=== PATIENT | male | born 1955 | race Caucasian/White ===

== ENCOUNTER 2021-12-28 21:53 | Emergency (ER) | payer MEDICARE, OTHER, SELFPAY ==
[2021-12-28 21:54] VITALS: BP 167/90; PULSE 87; RESP 18; TEMP 36.7; O2SAT 97; BMI 25.8
[2021-12-29] MEDS: Tetracaine 0.5% Ophthalmic Bottle 1 DRP LEFT EYE (00:01)
[2021-12-29] MEDS: Fluorescein 1 MG STRIP 1 STRIP LEFT EYE (00:02)
--- NOTE | 2021-12-29 00:38 | EX.ED.VIS.EY ---
HPI History of Present Illness Chief Complaint: Eye Problem Narrative Narrative: Patient is a 66-year-old male who states that he was holding a piece of wood while his friend was cutting it and he got sawdust in his left eye around 4:30 PM today. He denies any need for contact lens use. He states that he flushed his eye multiple times but he still feels like there is a foreign object in there. He denies any change in vision headache fevers or chills but secondary to the persistent left eye pain presents for evaluation [facility] Home Medications hydrocodone-acetaminophen 5-325mg 5mg-325mg 1 - 2 tab PO Q4H PRN PRN Pain ##20 01/01/14 [Rx Last Taken 01/07/14 06:00] ondansetron 4 mg disintegrating tablet 4 mg PO Q8H PRN PRN Nausea #10 tabs 01/01/14 [Rx Last Taken Unknown] tamsulosin 0.4 mg capsule 0.4 mg PO DAILY 14 days 01/01/14 [Rx Last Taken Unknown] hydrocodone-acetaminophen 5-325mg 5mg-325mg 1 - 2 tab PO Q4H PRN PRN Pain ##20 01/07/14 [Rx Last Taken Unknown] sulfamethoxazole 800 mg-trimethoprim 160 mg tablet 1 tab PO BID ##20 01/07/14 [Rx Last Taken Unknown] erythromycin 5 mg/gram (0.5 %) eye ointment 1 applic LEFT EYE 4X/DAY 5 days #3.5 grams 12/29/21 [Rx Last Taken Unknown] Allergy/AdvReac Type Severity Reaction Status Date / Time No Known Allergies Allergy Verified 12/28/21 21:56 Social History Smoking Status: Never smoker [facility] ED Constitutional Constitutional ED: Denies chills or fever(s) Eyes Eyes: Reports other Details: Positive left eye pain ; Denies blurry vision or change in vision ENT ENT ED: Denies sore throat Cardiovascular Cardiovascular: Denies chest pain Respiratory/Chest Respiratory/Chest: Denies cough or dyspnea Gastrointestinal Gastrointestinal: Denies abdominal pain, diarrhea, nausea or vomiting Genitourinary Genitourinary ED: Denies dysuria Musculoskeletal Musculoskeletal: Denies myalgias Integumentary Denies rash Neurologic Neurologic: Denies headache(s) EXAM Physical Exam Const Vital Signs: 12/28/21 21:54 Temperature 98.0 F Temperature Source Temporal Pulse Rate 87 Respiratory Rate 18 Blood Pressure 167/90 H Blood Pressure Mean 115 Pulse Ox 97 Oxygen Delivery Method Room Air Positive well nourished and well developed General Appearance ED: well developed Eyes PERRL and EOMs intact bilaterally Eyes Narrative: There is scleral injection of the left eye with increased tearing. Upper lid was everted there is no foreign body. Patient had complete relief of pain with tetracaine. Zamorano lamp exam shows a small corneal abrasion over top the iris at the 10 to 11 o'clock position. No retained foreign bodies noted. Negative Giovanny sign Neck supple Resp normal respiratory effort and clear to auscultation bilaterally Cardio regular rate and regular rhythm Extremity normal to inspection Neuro oriented x3 and CN's II-XII intact bilaterally Sensorium / Orientation: alert Psych mental status grossly normal Skin no rashes or lesions noted MDM MDM MDM Narrative Medical decision making narrative: Patient presented to the ER with history concerning for corneal abrasion and retained foreign body. Examination confirmed corneal abrasion but there is no foreign body noted. Therefore at this time as patient does not have globe rupture or history of chemical injury there is no need for ophthalmology consult. Patient will be placed on erythromycin as he does not wear contacts and is otherwise safe for discharge. Discharge Plan Triage Chief Complaint: Eye Problem ED Provider: Hi Wang Dx/Rx/DC Orders Clinical Impression: Injury of conjunctiva and corneal abrasion of left eye w/o FB Prescriptions: New erythromycin 5 mg/gram (0.5 %) ointment 1 applic LEFT EYE 4X/DAY 5 Days Qty: 3.5 0RF No Action hydrocodone-acetaminophen 1 TABLET tablet 1 - 2 tab PO Q4H PRN PRN (Reason: Pain) Qty: 20 0RF ondansetron 4 MG tablet 4 mg PO Q8H PRN PRN (Reason: Nausea) Qty: 10 0RF tamsulosin 0.4 MG capsule 0.4 mg PO DAILY 14 Days 0RF sulfamethoxazole-trimethoprim 1 TABLET tablet 1 tab PO BID Qty: 20 0RF hydrocodone-acetaminophen 1 TABLET tablet 1 - 2 tab PO Q4H PRN PRN (Reason: Pain) Qty: 20 0RF Primary Care Provider: Care Physician,No Primary Referrals: Patricia Elizabeth MD [Med Staff - Active Staff] - 3-5 Days if not improving Care Physician,No Primary [Primary Care Provider] - Disposition Disposition: Home, Self Care Discharge Date/Time: 12/29/21 01:00
[2021-12-29] MEDS: Erythromycin Base 1 OPTH.TUBE 1 APPLIC LEFT EYE (00:50)
[2021-12-29 00:59] VITALS: PULSE 83; RESP 18; O2SAT 97
== END 2021-12-29 01:00 | disposition home or self-care (01) ==
PROVIDERS: Emergency Provider Emergency Medicine; Visit Provider Emergency Medicine
DX: S05.02XA Injury of conjunctiva and corneal abrasion without foreign body, left eye, initial encounter (principal); X58.XXXA Exposure to other specified factors, initial encounter
CPT/HCPCS: 99282

== ENCOUNTER 2024-08-16 10:23 | Emergency (ER) | payer MEDICARE, OTHER, SELFPAY ==
[2024-08-16 10:24] VITALS: BP 147/94; PULSE 76; RESP 16; TEMP 37; O2SAT 98; BMI 28.1
--- NOTE | 2024-08-16 10:36 | EDS_ITS ---
<Statement entered by Jesus Ovalle DO - 08/16/24 17:13> Patient was seen and examined with nurse practitioner Wade All components of the history and physical confirmed and agreed. History of present illness and physical exam: Patient is a 69-year-old male with a past medical history of hypertension, kidney stones, drinks 1-2 beers daily who presented to the emergency department with the concern that he may be turning yellow. Patient states that he is currently getting worked up for some cyst on his liver and potentially had some blood in his urine. Patient is poor historian cannot exactly describe the details overall. Patient states that his son noticed that he may have a yellow tint to his eyes and he talk to his doctor advised he come here for further evaluation management. Patient denies abdominal pain. Review of systems: Agree above Physical exam: Agree with above MDM Patient is a 69-year-old male who presents to the emergency department with a c hief complaint of concern of jaundice. On the differential diagnose includes but limited to jaundice, cholecystitis, choledocholithiasis, pancreatitis. Once workup is obtained reviewed he will be reevaluated. Patient CBC was reviewed and showed no evidence of leukocytosis white blood cell normal 7.8, hemoglobin 15.3, platelet count was noted be 271. Patient sodium normal 139, potassium normal at 4, creatinine was 1.06. Patient's total bilirubin elevated 3.23, direct bilirubin elevated 2. To 8, AST and ALT were 303 and 896 respectively, lipase was normal at 37. Patient's urinalysis showed no evidence of infection. Patient's ultrasound of his right upper quadrant showed moderate right hydronephrosis no evidence of acute cholecystitis. Wade reached out to the on-call general surgeon who was attempting to obtain a CT scan that he obtained per the patient at [facility] yesterday however according to them ultimately there was no CT scan obtained. Dr. Moyer stated that the patient can follow-up closely with the primary care physician as well as gastroenterology. Patient was given referrals. He is encouraged return with worsening symptoms or any concerns. He is advised to have repeat blood work obtained at the beginning of next week as well. He is agreeable this plan all question concerns answered he is discharged home in stable condition. Final impression: Transaminitis Hyperbilirubinemia Disposition: Patient will be discharged home in stable condition Supervising attending attestation: Jesus Ovalle D.O. HPI History of Present Illness Chief Complaint: Other, Pain/Inj Narrative Narrative: Patient is a 69-year-old male who drinks 1-2 beers daily. Presenting to the emergency department for concern he may be turning yellow. Patient states that he is currently getting worked up for some cyst on his liver, he had some blood in his urine possibly a blockage in his gallbladder. When speaking to his PCP, they said if he turns yellow in any way to come to the ER. Today he was having breakfast with his son when his son noticed that his eyes might have been yellow-tinged. He is here for evaluation. Denies any abdominal pain, denies any fever or chills. [facility] Medical History (Updated 08/16/24 @ 16:23 by SHANNAN Lizama) Kidney stones HTN (hypertension) Home Medications ?Medication ?Instructions ?Recorded ?Last Taken ?Type hydrocodone-acetaminophen 5-325mg 1 - 2 tab PO Q4H PRN PRN Pain ##20 01/01/14 01/07/14 06:00 Rx 5mg-325mg ondansetron 4 mg disintegrating 4 mg PO Q8H PRN PRN Na usea #10 tabs 01/01/14 Unknown Rx tablet tamsulosin 0.4 mg capsule 0.4 mg PO DAILY 14 days 12/22 05/06 Unknown Rx hydrocodone-acetaminophen 5-325mg 1 - 2 tab PO Q4H PRN PRN Pain ##20 01/07/14 Unknown Rx 5mg-325mg sulfamethoxazole 800 1 tab PO BID ##20 01/07/14 U nknown Rx mg-trimethoprim 160 mg tablet erythromycin 5 mg/gram (0.5 %) eye 1 applic LEFT EYE 4 X/DAY 5 days 12/29/21 Unknown Rx ointment #3.5 grams Allergy/AdvReac Type Severity Reaction Status Date / Time No Known Allergies Allergy Verified 08/16/24 10:24 Surgical History (Updated 08/16/24 @ 10:47 by Beatriz Redman) H/O hernia repair Social History Smoking Status: Never smoker ROS ROS ED ROS Narrative Constitutional: Negative for fever, chills, weight loss, weakness Eyes: Negative for vision loss, vision change, double vision. Concern for yellowness of his eyes ENT: Negative for any sore throat, ear pain, congestion Cardiovascular: Negative for any chest pain, tightness, palpitations Respiratory: Negative for any cough, sputum production, hemoptysis, dyspnea, dyspnea on exertion, orthopnea Gastrointestinal: Negative for any abdominal pain, nausea, vomiting, diarrhea, constipation, blood in stool, blood in vomit : Negative for any urinary frequency, dysuria, retention, blood in urine Muscle skeletal: Negative for any neck pain, back pain Neurological: Negative for any headache, syncope, dizziness Skin: Negative for any rashes, itching, abrasions, lacerations Psychiatric: Negative for any depression, anxiety, stress, suicidal ideation, homicidal ideation Hematologic: Negative for any excessive bruising, easy bleeding EXAM Physical Exam Narrative Exam Narrative: Vital signs reviewed. HEET: Head normocephalic atraumatic, TMs clear bilaterally. Posterior pharynx is clear, moist mucous membranes. Nares clear bilaterally. On my physical examination, I do not see gross scleral icterus. They might be a slight yellow tinge however this could be a normal variation. Patient's skin color is within normal limits. Neck: Supple with no lymphadenopathy or tenderness. No signs of meningismus. Cardiac: Regular rate and rhythm no murmurs gallops or rubs, equal peripheral pulses bilaterally. Respiratory: Lungs clear to auscultation bilaterally. No chest tenderness. Abdomen: Soft, nontender, nondistended. No abdominal bruit or pulsatile masses. No hepatosplenomegaly Extremities: No peripheral edema, no signs of gross trauma or deformity. Active full range of motion of all extremities. Neuro: Cranial nerves II through XII intact, no focal neurological deficits. Skin: Clean dry and intact with no rash, purpura, petechiae, vesicles or pustules. Backs/flank: No CVA tenderness, no midline spinal tenderness, no deformity. Psych: Normal mood and affect. No SI, HI or acute psychosis. Const Vital Signs: 08/16/24 10:24 08/16/24 10:46 08/16/24 12:45 Temperature 98.6 F Temperature Source Temporal Pulse Rate 76 85 Respiratory Rate 16 16 Respiratory Effort Normal Respiratory Pattern Normal Blood Pressure 147/94 H 132/91 H Blood Pressure Mean 111 104 Pulse Ox 98 97 Oxygen Delivery Method Room Air Room Air 08/16/24 14:10 08/16/24 16:00 Temperature Temperature Source Pulse Rate 82 69 Respiratory Rate 16 16 Respiratory Effort Respiratory Pattern Blood Pressure 135/79 H 149/88 H Blood Pressure Mean 97 108 Pulse Ox 98 96 Oxygen Delivery Method Room Air Room Air Positive well nourished and well developed General Appearance ED: well developed MDM MDM Lab Data Labs: Laboratory Results - last 24 hr 08/16/24 08/16/24 10:41 11:29 WBC 7.8 RBC 4.68 Hgb 15.3 Hct 45.2 MCV 96.6 H MCH 32.7 H MCHC 33.8 RDW Std Deviation 47.5 H RDW Coeff of Michelle 13.3 Plt Count 271 MPV 9.7 Immature Gran % (Auto) 0.600 Neut % (Auto) 72.8 H Lymph % (Auto) 12.1 L Iron % (Auto) 10.4 H Eos % (Auto) 3.6 Baso % (Auto) 0.5 Absolute Neuts (auto) 5.7 Absolute Lymphs (auto) 0.94 Nucleated RBC % 0 PT 12.5 INR 0.9 Sodium 139 Potassium 4.0 Chloride 104 Carbon Dioxide 23.6 Anion Gap 12 BUN 20 H Creatinine 1.06 Estim Creat Clear Calc 57.79 Est GFR (MDRD) Non-Af 75 BUN/Creatinine Ratio 19.0 Glucose 101 H Calcium 9.6 Total Bilirubin 3.23 H Direct Bilirubin 2.28 H AST 303 H ALT 896 H Alkaline Phosphatase 347 H Total Protein 6.9 Albumin 4.0 Globulin 2.9 Lipase 37 Urine Color [place] Urine Clarity Clear Urine pH 5.0 Ur Specific [place] 1.020 Urine Protein 30 H Urine Glucose (UA) Normal Urine Ketones 5 H Urine Occult Blood 10 H Urine Nitrite Negative Urine Bilirubin 1 H Urine Urobilinogen 8 H Ur Leukocyte Esterase 25 H Urine RBC 0 SEEN Urine WBC 0-5 SEEN Ur Squamous Epith Cells 0 SEEN Urine Bacteria 0 SEEN Urine Mucus 1+ Radiography Diagnostic Testing: Clinical Impression(s) from Imaging Studies Abdomen Ultrasound 08/16/24 11:41 IMPRESSION: Moderate right hydronephrosis. No evidence of acute cholecystitis. Reading Location: [id number] Treatment and Re-Evaluation :: Differential diagnosis includes however is not limited to: Anxiety, alcoholic cirrhosis, scleral icterus, elevated liver enzymes, normal variation of his eyes and skin color Patient appears generally well, vital signs are stable, patient is nontoxic- appearing. Presenting to the [facility] for concern of yellowness in his eyes. Patient did have a CAT scan that was outside his network that did show some cyst on his liver, hepatomegaly possibly some sludge in his gallbladder. Patient is here to ensure that his enzymes are within normal limits, he states that he is not sure and is just slightly anxious. Patient will receive CBC BMP liver panel lipase as well as a PT/INR. Urinalysis will also be obtained. Patient will be reevaluated Patient CBC was unremarkable, PT/INR within normal limits. Patient's BUN is 20, creatinine is 1.06. Patient's total bilirubin was slightly elevated at 3.23, direct bilirubin 2.28, AST of 303, ALT of 896 with an alkaline phosphatase of 347. Lipase was negative. Secondary to this finding, patient will receive a right upper quadrant ultrasound. All radiologic examinations were read, reviewed by the emergency department attending. From these reads, a plan of care will be put in place. Patient's abdominal ultrasound shows moderate right hydronephrosis however there is no stones, the right kidney measures 10.6 x 5.3 x 5.5 cm. Patient has no evidence of any acute cholecystitis. Will reach out to surgery to ensure there is no other testing at this time. Patient remains asymptomatic at this time. I spoke with the surgeon again, at this time, do not feel any surgical emergency. The surgery myself to try to get the CT scan completed, There was some difficulty with the technology. Patient did receive a right upper quadrant ultrasound of the surgeon to look at Dr. Moyer talk with me on the phone. Patient be discharged home, will follow-up closely with her PCP as well as a GI specialist. Given strict return precaution. The patient is no longer drinking alcohol. All questions answered, stable for discharge Discharge Plan Triage Chief Complaint: Other, Pain/Inj ED Midlevel Provider: Wade Murphy ED Provider: Jesus Ovalle Dx/Rx/DC Orders Clinical Impression: Transaminitis, Hyperbilirubinemia Instructions: ALT Prescriptions: No Action hydrocodone-acetaminophen 1 TABLET tablet 1 - 2 tab PO Q4H PRN PRN (Reason: Pain) Qty: 20 0RF ondansetron 4 MG tablet 4 mg PO Q8H PRN PRN (Reason: Nausea) Qty: 10 0RF tamsulosin 0.4 MG capsule 0.4 mg PO DAILY 14 Days 0RF sulfamethoxazole-trimethoprim 1 TABLET tablet 1 tab PO BID Qty: 20 0RF hydrocodone-acetaminophen 1 TABLET tablet 1 - 2 tab PO Q4H PRN PRN (Reason: Pain) Qty: 20 0RF erythromycin 5 mg/gram (0.5 %) ointment 1 applic LEFT EYE 4X/DAY 5 Days Qty: 3.5 0RF Primary Care Provider: Vannessa Mattson NP Referrals: FriendDavid DO [Med Staff - Active Staff] - Vannessa Mattson NP, [employer]OPER-[employer] [Primary Care Provider] - Print Language: [place] Disposition Disposition: Home, Self Care
[2024-08-16 11:02] LABS: International Normalized Ratio 0.9; Prothrombin Time (Protime)PT. 12.5 SECONDS (11.7-14.9)
[2024-08-16 11:05] LABS: Absolute Lymphocyte Count 0.94 X10^3/uL (0.83-4.51); Absolute Neutrophil Count 5.7 X10^3/uL (2.0-7.7); Basophil# 0.04 X10^3/uL; Basophil% 0.5 % (0-1); Eosinophil# 0.28 X10^3/uL; Eosinophils% 3.6 % (0-5); Hematocrit 45.2 % (40-54); Hemoglobin 15.3 g/dL (13.0-16.5); Lymphocyte # 0.94 X10^3/ul (0.83-4.51); Lymphocyte % 12.1 % (19-41); Mean Corp Hgb Conc 33.8 g/dL (32-36); Mean Corpuscular Hgb 32.7 pg (27.0-32.0); Mean Corpuscular Volume 96.6 fL (80-94); Mean Platelet Vol. 9.7 fl (6.2-12.0); Monocyte# 0.81 X10^3/uL; Monocyte% 10.4 % (0-10); NRBC Flagged by Analyzer 0 % (0-5); Neutrophil # 5.65 X10^3/uL (2.7-7.7); Neutrophil % 72.8 % (47-70); Platelet Count 271 K/mm3 (150-450); RBC Distribution Width CV 13.3 % (11.6-14.6); RBC Distribution Width SD 47.5 fl (35.1-43.9); Red Blood Count 4.68 M/mm3 (4.6-6.2); White Blood Count 7.8 K/mm3 (4.4-11.0)
[2024-08-16 11:16] LABS: Lipase 37 U/L (13-75)
[2024-08-16 11:32] LABS: AST(SGOT) 303 U/L (<=37); Alanine Aminotransfer ALT/SGPT 896 U/L (<=46); Alkaline Phosphatase 347 U/L (40-129); Anion Gap 12 (5-15); BUN 20 mg/dL (4-19); Bilirubin, Direct 2.28 mg/dL (0.00-0.30); Calcium,Total 9.6 mg/dL (7.6-11.0); Carbon Dioxide 23.6 mmol/L (21.0-32.0); Chloride 104 mmol/L (98-108); Creatinine, Serum 1.06 mg/dL (0.70-1.20); EST Glomerular Filtration Rate 75 (>60); Estimated Creatinine Clearance 57.79 ml/min (50-250); Globulin 2.9 g/dL (2.2-4.2); Glucose 101 mg/dL (70-99); Protein, Total 6.9 g/dL (5.9-8.4); Sodium Level 139 mmol/L (133-145); Total Bilirubin 3.23 mg/dL (0.00-1.30)
[2024-08-16 11:33] LABS: Bacteria 0 SEEN /hpf (None Seen); Red Blood Cells-Urine 0 SEEN /hpf (0-5); Squamous Epithelial Cells - UA 0 SEEN /hpf (0-5)
[2024-08-16 11:36] LABS: Color, Urine Amber (Yellow); Glucose, Dipstick Normal (Normal); Ketone-Dipstick 5 mg/dl (Negative); Leukocyte Esterase-Dipstick 25 /ul (Negative); Nitrite-Dipstick Negative (Negative); Occult Blood-Urine 10 /ul (Negative); Protein-Dipstick 30 mg/dl (Negative); Urine Bilirubin Dipstick 1 mg/dL (Negative); Urine Clarity Clear (Clear); Urine Urobilinogen 8 mg/dl (Normal)
--- NOTE | 2024-08-16 11:41 | US_ITS ---
EXAM: US Abdomen Limited, Right Upper Quadrant CLINICAL INDICATION: TRANSAMINITIS, ELEVATED BILIRUBIN TECHNIQUE: Real-time ultrasound of the right upper quadrant with image documentation. COMPARISON: No relevant prior studies available. FINDINGS: LIVER: Liver measures up to 15.5 cm. No intrahepatic bile duct dilation. GALLBLADDER: Negative Reeder's sign was reported by the steno typist. No gallstones. COMMON BILE DUCT: Unremarkable as visualized. No stones. No dilation. Common bile duct measures 0.4 cm in diameter. PANCREAS: Pancreas not clearly visualized. RIGHT KIDNEY: Moderate right hydronephrosis. No stones. The right kidney measures 10.6 x 5.3 x 5.5 cm. US/Abdomen Limited IMPRESSION: Moderate right hydronephrosis. No evidence of acute cholecystitis. Reading Location: [id number]
[2024-08-16 11:44] LABS: White Blood Cells 0-5 SEEN /hpf (0-5)
[2024-08-16 11:45] LABS: Mucous, Urine 1+ /hpf (<or=2+)
[2024-08-16 12:45] VITALS: BP 132/91; PULSE 85; RESP 16; O2SAT 97
[2024-08-16 14:10] VITALS: BP 135/79; PULSE 82; RESP 16; O2SAT 98
[2024-08-16 16:00] VITALS: BP 149/88; PULSE 69; RESP 16; O2SAT 96
[2024-08-16 16:26] VITALS: BP 144/79; PULSE 72; RESP 16; TEMP 36.8; O2SAT 96
== END 2024-08-16 16:27 | disposition home or self-care (01) ==
PROVIDERS: Nurse Practitioner; Emergency Provider Emergency Medicine; PCP Clinical Nurse Specialist; Visit Provider Emergency Medicine
DX: E80.7 Disorder of bilirubin metabolism, unspecified (principal); I10 Essential (primary) hypertension; R74.01 Elevation of levels of liver transaminase levels
CPT/HCPCS: 76705; 80048; 80076; 81001; 83690; 85025; 85610; 99283; A4216

== ENCOUNTER → 2024-08-21 | Outpatient (CLI) | payer MEDICARE, OTHER, SELFPAY ==
[2024-08-21 16:50] LABS: Absolute Lymphocyte Count 0.78 X10^3/uL (0.83-4.51); Absolute Neutrophil Count 5.5 X10^3/uL (2.0-7.7); Basophil# 0.04 X10^3/uL; Basophil% 0.5 % (0-1); Eosinophil# 0.31 X10^3/uL; Eosinophils% 4.2 % (0-5); Hematocrit 45.1 % (40-54); Hemoglobin 14.9 g/dL (13.0-16.5); Lymphocyte # 0.78 X10^3/ul (0.83-4.51); Lymphocyte % 10.6 % (19-41); Mean Corpuscular Hgb 32.3 pg (27.0-32.0); Mean Corpuscular Volume 97.6 fL (80-94); Mean Platelet Vol. 10.3 fl (6.2-12.0); Monocyte# 0.67 X10^3/uL; Monocyte% 9.1 % (0-10); NRBC Flagged by Analyzer 0 % (0-5); Neutrophil # 5.46 X10^3/uL (2.7-7.7); Neutrophil % 74.6 % (47-70); Platelet Count 392 K/mm3 (150-450); RBC Distribution Width CV 13.4 % (11.6-14.6); RBC Distribution Width SD 48.6 fl (35.1-43.9); Red Blood Count 4.62 M/mm3 (4.6-6.2); White Blood Count 7.3 K/mm3 (4.4-11.0)
[2024-08-21 16:58] LABS: International Normalized Ratio 0.9; Prothrombin Time (Protime)PT. 12.8 SECONDS (11.7-14.9)
[2024-08-21 17:42] LABS: Erythrocyte Sedimentation Rate 16 mm/hr (0-20)
[2024-08-21 17:47] LABS: ALB/GLOB Ratio 1.4 RATIO (0.9-2.4); AST(SGOT) 131 U/L (<=37); Alanine Aminotransfer ALT/SGPT 498 U/L (<=46); Alkaline Phosphatase 440 U/L (40-129); Anion Gap 12 (5-15); BUN 14 mg/dL (4-19); BUN/Creat Ratio 14.6 RATIO (10-20); Calcium,Total 9.3 mg/dL (7.6-11.0); Carbon Dioxide 21.5 mmol/L (21.0-32.0); Chloride 104 mmol/L (98-108); Creatinine, Serum 0.99 mg/dL (0.70-1.20); EST Glomerular Filtration Rate 82 (>60); Globulin 2.9 g/dL (2.2-4.2); Glucose 96 mg/dL (70-99); Potassium 4.3 mmol/L (3.3-5.1); Protein, Total 6.9 g/dL (5.9-8.4); Sodium Level 137 mmol/L (133-145); Total Bilirubin 1.33 mg/dL (0.00-1.30)
[2024-08-21 19:47] LABS: CRP < 3.00 mg/L (0.0-3.0); LDH 166 U/L (87-241)
[2024-08-25 12:08] LABS: Anti-Centromere B Ab <0.2 AI (0.0-0.9); Anti-Chromatin <0.2 AI (0.0-0.9); Anti-Jo <0.2 AI (0.0-0.9); Anti-Mitochondrial AB <20.0 Units (0.0-20.0); Anti-Scleroderma-70 AB <0.2 AI (0.0-0.9); Anti-dsDNA Ab <1 IU/mL (0-9); RNP Ab 0.2 AI (0.0-0.9); SJOGREN'S Anti-SS-A test < 0.2 AI (0.0-0.9); SJOGREN'S Anti-SS-B test < 0.2 AI (0.0-0.9); Smith Ab <0.2 AI (0.0-0.9)
[2024-08-26 16:09] LABS: Albumin 3.4 g/dL (2.9-4.4); Alpha-1-Globulins 0.4 g/dL (0.0-0.4); Alpha-2-Globulins 0.8 g/dL (0.4-1.0); Anti-Smooth Muscle ABS 3 Units (0-19); CMV Acute Antibody IgM < 30.0 AU/mL (0.0-29.9); Cytoplasmic Ab (C-ANCA) <1:20 titer (Neg:<1:20); EBV Acute VCA IgM < 36.0 U/mL (0.0-35.9); EBV Nuclear Antigen IgG < 18.0 U/mL (0.0-17.9); EBV-VCA IgG < 18.0 U/mL (0.0-17.9); Endomysial Antibody IgA Negative (Negative); HEPATITIS B SURFACE AG Negative (Negative); Hep C Antibodies Non Reactive (Non Reactive); Hepatitis A IgM Antibody Negative (Negative); Hepatitis B Core AB IgM Negative (Negative); Immunoglobulin A 142 mg/dL (61-437); Immunoglobulin G 1042 mg/dL (603-1613); Immunoglobulin M 35 mg/dL (20-172); PROEL- TOTAL PROTEIN 6.7 g/dL (6.0-8.5); Perinuclear Ab (P-ANCA) <1:20 titer (Neg:<1:20); t-Transglutaminase IgA <2 U/mL (0-3)
== END | disposition home or self-care (01) ==
LOC: LAB 15:13
PROVIDERS: PCP Clinical Nurse Specialist; Referring Provider Internal Medicine Gastroenterology; Visit Provider Internal Medicine Gastroenterology
DX: E80.6 Other disorders of bilirubin metabolism (principal); R74.01 Elevation of levels of liver transaminase levels; K75.9 Inflammatory liver disease, unspecified; D64.9 Anemia, unspecified; D68.59 Other primary thrombophilia
CPT/HCPCS: 36415; 80053; 80074; 82784; 83516; 83615; 84165; 85025; 85610; 85652; 86037; 86140; 86225; 86235; 86255; 86334; 86645; 86664; 86665

== ENCOUNTER → 2024-09-23 | Outpatient (CLI) | payer MEDICARE, OTHER, SELFPAY ==
[2024-09-23] VITALS (14 sets, daily range): BP systolic 88–162; BP diastolic 60–94; PULSE 50–61; RESP 12–16; TEMP 36.4; O2SAT 94–100; BMI 26.9
--- NOTE | 2024-09-23 09:02 | CT_ITS ---
PROCEDURE: PERCUTANEOUS LIVER BIOPSY UNDER CT GUIDANCE 09/23/2024 REASON FOR EXAM: HYPERBILIRUBINEMIA TECHNIQUE: CONTIGUOUS AXIAL SCANS OF 2.5 MM SLICE THICKNESSES OBTAINED THROUGH THE UPPER ABDOMEN, SPECIAL ATTENTION TO THE LIVER. One or more dose reduction techniques were used (e.g., Automated exposure control, adjustment of the mA and/or kV according to patient size, use of iterative reconstruction technique). RADIATION DOSE SUMMARY: DLP: 1161.46 mGycm COMPARISON: ULTRASOUND DATED 08/16/2024. FINDINGS: INFORMED CONSENT WAS OBTAINED PRIOR TO THE PROCEDURE. THE PATIENT WAS GIVEN THE OPPORTUNITY TO ASK QUESTIONS. Following localization of the site of biopsy, sterile preparation of the skin was performed in the usual fashion. Lidocaine 2% was utilized to anesthetize the site of biopsy needle insertion. A YES.TAP coaxial biopsy device was utilized to perform the biopsy. Guiding needle: 17 gauge x 4.5 cm. Biopsy needle: 18 gauge x 10.0 cm. Number of specimens: Three(3). Following the procedure, axial scans were obtained through the area of biopsy. No signs of hemorrhage or other abnormalities. CT/Biopsy/Inj or Needle Placement IMPRESSION: 1. Successful random core biopsy of the liver under CT guidance. 2. Patient tolerated the procedure well. Final pathologic results are pending . Thank you for this referral. Reading Location: [place] [id number]
[2024-09-23 09:17] LABS: Absolute Lymphocyte Count 1.19 X10^3/uL (0.83-4.51); Absolute Neutrophil Count 3.9 X10^3/uL (2.0-7.7); Basophil# 0.04 X10^3/uL; Basophil% 0.7 % (0-1); Eosinophil# 0.23 X10^3/uL; Eosinophils% 3.9 % (0-5); Hematocrit 46.5 % (40-54); Hemoglobin 15.6 g/dL (13.0-16.5); Lymphocyte # 1.19 X10^3/ul (0.83-4.51); Lymphocyte % 20.3 % (19-41); Mean Corp Hgb Conc 33.5 g/dL (32-36); Mean Corpuscular Hgb 32.1 pg (27.0-32.0); Mean Corpuscular Volume 95.7 fL (80-94); Mean Platelet Vol. 9.2 fl (6.2-12.0); Monocyte# 0.51 X10^3/uL; Monocyte% 8.7 % (0-10); NRBC Flagged by Analyzer 0 % (0-5); Neutrophil # 3.88 X10^3/uL (2.7-7.7); Neutrophil % 66.1 % (47-70); Platelet Count 293 K/mm3 (150-450); RBC Distribution Width CV 12.4 % (11.6-14.6); RBC Distribution Width SD 43.6 fl (35.1-43.9); Red Blood Count 4.86 M/mm3 (4.6-6.2); White Blood Count 5.9 K/mm3 (4.4-11.0)
[2024-09-23 09:38] LABS: International Normalized Ratio 1.1; Prothrombin Time (Protime)PT. 13.9 SECONDS (11.7-14.9)
[2024-09-23 09:39] LABS: Partial Thromboplast Time 26.5 Seconds (24.1-36.2)
--- OUTSIDE RECORDS SUMMARY | 2024-09-23 09:41 | XMS RPT_ITS | CCD ---
Author Organization [facility] Care Team Providers Care Field Cane Scaler Helper Name Role Phone Mateo Ayala MD Primary Care Provider aMteo Ayala MD Primary Care Provider Srinivasan RADIATOR FITTER.TEAMSITE DEVELOPER, Awilda Unavailable Fred RADIATOR FITTER.HYDROGEN PLANT OPERATOR, Casandra Unavailable Mateo Ayala MD Primary Care Provider Srinivasan RADIATOR FITTER.TEAMSITE DEVELOPER, Awilda Primary Care Provider LONG NAVARRO Attending Unavailable LONG NAVARRO Admitting Unavailable TALAMPAS, MATEO D Primary Care Unavailable Mattson GENERAL ADJUSTER-C, Awilda Primary Care Provider Dr. Jesus Ovalle DO Emergency Provider Mateo Ayala MD Primary Care Provider Holly Jorge MD Unavailable MATTSON, AWILDA Referring Unavailable TALAMPAS, MATEO D Primary Care Unavailable MATTSON, AWILDA Referring Unavailable TALAMPAS, MATEO D Primary Care Unavailable HOLLY JORGE Attending Unavailable MATTSON, AWILDA Referring Unavailable TALAMPAS, MATEO D Primary Care Unavailable TALAMPAS, MATEO D Primary Care Unavailable HOLLY JORGE Referring Unavailable MATTSON, AWILDA Referring Unavailable TALAMPAS, MATEO D Primary Care Unavailable TALAMPAS, MATEO D Primary Care Unavailable MATTSON, AWILDA Referring Unavailable MATTSON, AWILDA Referring Unavailable TALAMPAS, MATEO D Primary Care Unavailable TALAMPAS, MATEO D Primary Care Unavailable MATTSON, AWILDA Referring Unavailable TALAMPAS, MATEO D Primary Care Unavailable MATTSON, AWILDA Referring Unavailable TALAMPAS, MATEO D Primary Care Unavailable MATTSON, AWILDA Referring Unavailable MATTSON, AWILDA Attending Unavailable TALAMPAS, MATEO D Primary Care Unavailable MATTSON, AWILDA Referring Unavailable TALAMPAS, MATEO D Primary Care Unavailable ARLYN CRUZ Attending Unavailable TALAMPAS, MATEO D Primary Care Unavailable ARLYN CRUZ Attending Unavailable MATTSON, AWILDA Attending Unavailable MATTSON, AWILDA Referring Unavailable MATTSON, AWILDA Referring Unavailable TALAMPAS, MATEO D Primary Care Unavailable Mattson GENERAL ADJUSTER, Awilda Primary Care Unavailable Friend, David Referring Unavailable Friend, David Attending Unavailable Jesus Ovalle Attending Unavailable Mattson GENERAL ADJUSTER, Awilda Primary Care Unavailable Mattson GENERAL ADJUSTER, Awilda Primary Care Unavailable Friend, David Referring Unavailable Friend, David Attending Unavailable Friend, David Attending Unavailable Mattson GENERAL ADJUSTER, Awilda Referring Unavailable Mattson GENERAL ADJUSTER, Awilda Primary Care Unavailable Allergies Allergy Classification Reported Allergen(s) Allergy Type Date of Onset Reaction(s) Facility (8 sources) Seasonal allergy; Translations: [SEASONAL ALLERGIES] Allergy to substance Other: See Comments [facility] Medications Current Medications Medication Drug Class(es) Dates Sig (Normalized) Sig (Original) acetaminophen 325 mg / HYDROcodone bitartrate 5 mg oral tablet (4 sources) Opioid Agonist Start: 01-01-2014 Hydrocodone-Acetam inophen 1 TABLET tablet Active 1 - 2 {tbl} PO EVERY 4 HOURS NEEDED as needed for Pain January 07, 2014 12:00am Start: 01-01-2014 take 1 tablet by rafael th every four hours as needed Hydrocodone-Acetaminophen Active 1 - 2 TABLET PO EVERY 4 HOURS NEEDED January 07, 2014 12:00am amLODIPine 2.5 mg oral tablet (17 sources) Dihydropyridine Calcium Channel Manohar Start: 08-08-2021 End: 01-10-2024 take 1 tablet by mouth once daily amLODIPine (NORVASC) 2.5 mg tablet Indications: Hypertension, unspecified type Take 1 tablet by mouth once daily. 90 tablet 3 01/10/2024 Active Comment on above: Take 1 tablet by rafael th once daily. erythromycin 0.005 mg/mg ophthalmic ointment (2 sources) Macrolide, Macrolide Antimicrobial Start: 12-29-2021 Erythromycin 5 mg/gram (0.5 %) ointment Active 1 NMA LEFT EYE 4 TIMES DAILY 3.5 5 December 29, 2021 12:00am Start: 12-29-2021 Erythromycin A ctive 1 APPLIC LEFT EYE 4 TIMES DAILY 3.5 5 December 29, 2021 12:00am iv contrast (will be provided with radiology test) (1 source) Start: 08-25-2024 End: 08-26-2024 iv contrast (will be provided with radiology test) Indications: Abnormal results of liver function studies MRI PANC/ALBERT Inject, intravenously, once for 1 dose. No IV access, insert saline lock prior to the beginning of sedation, infusion, injection of imaging exam. Discontinue saline lock post exam. If Pt. has a central line or IVAD, may access for administration according to line specific nursing protocol. Once exam is complete flush line and de-access according to line specific nursing protocol in the MR contrast administration guidelines link. 1 each 08/25/2024 08/26/2024 Active ondansetron 4 mg disintegrating oral tablet (2 sources) Serotonin-3 Receptor Antagonist Start: 01-01-2014 take 1 tablet by mouth every eight hours as needed for nausea Ondansetron 4 MG tablet Active 4 mg PO EVERY 8 HOURS NEEDED as needed for Nausea January 01, 2014 12:00am sulfamethoxazole 800 mg / trimethoprim 160 mg oral tablet (2 sources) Dihydrofolate Reductase Inhibitor Antibacterial, Sulfonamide Antimicrobial Start: 01-07-2014 Sulfamethoxazole-Tr imethoprim 1 TABLET tablet Active 1 {tbl} PO TWICE A DAY January 07, 2014 12:00am Start: 01-07-2014 take 1 tablet by rafael twice daily Sulfamethoxazole-Trimethoprim Active 1 T ABLET PO TWICE A DAY January 07, 2014 12:00am tamsulosin hydrochloride 0.4 mg oral capsule (2 sources) alpha-Adrenergic Manohar Start: 01-01-2014 take 1 capsule by mouth once daily Tamsulosin 0.4 MG capsule Active 0.4 mg PO DAILY January 01, 2014 12:00am Completed/Discontinued Medications Medication Drug Class(es) Dates Sig (Normalized) Sig (Original) phenylephrine hydrochloride 25 mg/ml ophthalmic solution (1 source) alpha-1 Adrenergic Agonist Start: 08-29-2022 End: 08-30-2022 PHENYLephrine 2.5 % 1 Drop (AK-DILATE, JOSEFA-SYNEPHRINE) proparacaine hydrochloride 5 mg/ml ophthalmic solution (1 source) Local Anesthetic Start: 08-29-2022 End: 08-30-2022 proparacaine 0.5 % 1 Drop (ALCAINE) tropicamide 10 mg/ml ophthalmic solution (1 source) Anticholinergic Start: 08-29-2022 End: 08-30-2022 tropicamide 1 % 1 Drop (MYDRIACYL) Problems Active Problems Problem Classification Problem Date Documented Date Episodic/Chronic Abdominal hernia (2 sources) Left inguinal hernia ; Translations: [Unilateral inguinal hernia, without obstruction or gangrene, not specified as recurrent] Onset: 07-16-2024 06-23-2024 Episodic Blindness and vision defects (3 sources) Bilateral hyperopia of eyes; Translations: [Hypermetropia, bilateral] Episodic Coagulation and hemorrhagic disorders (1 source) Other primary thrombophilia; 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-2024 Chronic Deficiency and other anemia (1 source) Anemia, unspecified; Translations: [Anemia, unspecified] Onset: 08-21-2024 Episodic Disorders of lipid metabolism (17 sources) Hyperlipidemia; Translations: [Hyperlipidemia, unspecified] Onset: 09-02-2007 12-25-2012 Chronic Essential hypertension (16 sources) Hypertensive disorder; Translations: [Essential (primary) hypertension] Onset: 08-30-2007 Chronic Genitourinary symptoms and ill-defined conditions (11 sources) Donald hematuria; Translations: [Gross hematuria] Onset: 08-18-2024 08-18-2024 Episodic Hyperplasia of prostate (9 sources) Nocturia due to benign prostatic hypertrophy; Translations: [Benign prostatic hyperplasia with lower urinary tract symptoms] Onset: 08-18-2024 08-18-2024 Chronic Other diseases of bladder and urethra (7 sources) Hypertrophy of bladder; Translations: [Other specified disorders of bladder] Onset: 08-18-2024 08-18-2024 Chronic Other diseases of bladder and urethra (1 source) Other specified disorders of bladder; Translations: [Bladder wall thickening] Onset: 08-18-2024 Chronic Other diseases of kidney and ureters (7 sources) Acquired renal cystic disease; Translations: [Cyst of kidney, acquired] Onset: 08-18-2024 08-18-2024 Episodic Other diseases of kidney and ureters (1 source) Cyst of kidney, acquired; Translations: [Renal cysts, acquired, bilateral] Onset: 08-18-2024 Episodic Other eye disorders (1 source) Lesion of right eyelid; Translations: [Unspecified disorder of eyelid] Episodic Other liver diseases (1 source) Inflammatory liver disease, unspecified; Translations: [Inflammatory liver disease, unspecified] Onset: 08-21-2024 Chronic Other liver diseases (1 source) Enzyme level - finding; Translations: [Elevated transaminase measurement] 08-16-2024 Episodic Other liver diseases (1 source) Elevated liver enzymes level; Translations: [Abnormal levels of other serum enzymes] 08-18-2024 Episodic Other liver diseases (2 sources) Abnormal levels of other serum enzymes; Translations: [Elevated liver enzymes] Onset: 08-15-2024 Episodic Other nutritional; endocrine; and metabolic disorders (2 sources) Hyperbilirubinemia; Translations: [Other disorders of bilirubin metabolism] 08-16-2024 Chronic Other nutritional; endocrine; and metabolic disorders (4 sources) Other disorders of bilirubin metabolism; Translations: [Hyperbilirubinemia] Onset: 08-15-2024 Chronic Other nutritional; endocrine; and metabolic disorders (1 source) Disorder of bilirubin metabolism, unspecified; 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, unspecified] Onset: 08-20-2024 Chronic Other screening for suspected conditions (not mental disorders or infectious disease) (15 sources) Patient encounter status; Translations: [Encounter for screening for lipoid disorders] Onset: 08-26-2024 Episodic Residual codes; unclassified (1 source) History of hernia repair; Translations: [Other specified postprocedural states] 07-28-2024 Episodic Residual codes; unclassified (6 sources) Family history of prostate cancer; Translations: [Family history of malignant neoplasm of prostate] Onset: 08-19-2024 08-19-2024 Episodic Residual codes; unclassified (1 source) Family history of malignant neoplasm of kidney; Translations: [Family history of malignant neoplasm of kidney] 08-19-2024 Episodic Residual codes; unclassified (1 source) Family history of malignant neoplasm of prostate; Translations: [Family history of prostate cancer in father] Onset: 08-19-2024 Episodic Residual codes; unclassified (2 sources) Family history of malignant neoplasm of kidney; Translations: [Family history of renal cancer] Onset: 08-14-2024 Episodic Retinal detachments; defects; vascular occlusion; and retinopathy (1 source) Nonexudative age-related macular degeneration; Translations: [Nonexudative age-related macular degeneration, bilateral, early dry stage] Chronic Superficial injury; contusion (2 sources) Injury of globe of eye; Translations: [Injury of conjunctiva and corneal abrasion without foreign body, left eye, initial encounter] 12-29-2021 Episodic Unclassified (2 sources) Elevation of levels of liver transaminase levels; Translations: [Elevation of levels of liver transaminase levels] Onset: 08-21-2024 Past or Other Problems Problem Classification Problem Date Documented Da te Episodic/Chronic Calculus of urinary tract (20 sources) Kidney stone; Translations: [Calculus of kidney] Onset: 10-05-2008 10-28-2008 Episodic Other circulatory disease (4 sources) Elevated blood-pressure reading without diagnosis of hypertension; Translations: [Elevated blood-pressure reading, without diagnosis of hypertension] Onset: 08-30-2007 01-15-2008 Episodic Substance-related disorders (11 sources) Tobacco user; Translations: [Nicotine dependence, unspecified, uncomplicated] Onset: 10-28-2008 Resolved: 12-25-2012 11-01-2023 Chronic Results Test Name Value Interpretation Reference Range Facility Hepatic function 2000 panelo n 09-22-2024 Albumin [Mass/Vol] 4.3 g/dL Normal 3.9-4.9 [facility] Comment on above: Order Comment: Celso loyd Type: BLOOD SPECIMENOrdering Facility: [facility] Address: [address] [place] [address] Performed By: #### 2 4325-3 ####[facility] [id number] [place] [address] [place] ALP [Catalytic activity/Vol] 119 U/L High 38-113 [facility] Comment on above: Order Comment: Celso loyd Type: BLOOD SPECIMENOrdering Facility: [facility] Address: [address] [place] [address] Performed By: #### 2 4325-3 ####[facility] [id number] [place] [address] [place] ALT [Catalytic activity/Vol] 13 U/L Normal 10-54 [facility] Comment on above: Order Comment: Speci men Type: BLOOD SPECIMENOrdering Facility: [facility] Address: [address] [place] [address] Performed By: #### 2 4325-3 ####[facility] MILLWNCLIA [id number] [place] [address] [place] AST [Catalytic activity/Vol] 15 U/L Normal 14-40 [facility] Comment on above: Order Comment: Speci men Type: BLOOD SPECIMENOrdering Facility: [facility] Address: [address] [place] [address] Performed By: #### 2 4325-3 ####[facility] [id number] [place] [address] [place] Bilirubin [Mass/Vol] 0.6 mg/dL Normal 0.2-1.3 [facility] Comment on above: Order Comment: Speci men Type: BLOOD SPECIMENOrdering Facility: [facility] Address: [address] [place] [address] Performed By: #### 2 4325-3 ####[facility] [id number] [place] [address] [place] Bilirubin.conjugated [Mass/Vol] 0.2 mg/dL Normal <0.3 [facility] Comment on above: Order Comment: Speci men Type: BLOOD SPECIMENOrdering Facility: [facility] Address: [address] [place] [address] Performed By: #### 2 4325-3 ####[facility] [id number] [place] [address] [place] Protein [Mass/Vol] 6.9 g/dL Normal 6.3-8.0 [facility] Comment on above: Order Comment: Speci men Type: BLOOD SPECIMENOrdering Facility: [facility] Address: [address] [place] [address] Performed By: #### 2 4325-3 ####[facility] [id number] [place] [address] [place] Hepatic function 2000 panelo n 09-16-2024 Albumin [Mass/Vol] 4.3 g/dL Normal 3.9-4.9 [facility] Comment on above: Order Comment: Speci men Type: BLOOD SPECIMENOrdering Facility: [facility] Address: [address] [place] [address] Performed By: #### 2 4325-3 ####[facility] [id number] [place] [address] [place] ALP [Catalytic activity/Vol] 143 U/L High 38-113 [facility] Comment on above: Order Comment: Speci men Type: BLOOD SPECIMENOrdering Facility: [facility] Address: [address] [place] [address] Performed By: #### 2 4325-3 ####[facility]ERNCLI [id number] [place] [address] [place] ALT [Catalytic activity/Vol] 18 U/L Normal 10-54 [facility] Comment on above: Order Comment: Speci men Type: BLOOD SPECIMENOrdering Facility: [facility] Address: [address] [place] [address] Performed By: #### 2 4325-3 ####[facility] [id number] [place] [address] [place] AST [Catalytic activity/Vol] 15 U/L Normal 14-40 [facility] Comment on above: Order Comment: Speci men Type: BLOOD SPECIMENOrdering Facility: [facility] Address: [address] [place] [address] [place] [address] Performed By: #### 2 4325-3 ####[facility] MILLTOWNCLIA [id number] [place] [address] [place] Bilirubin [Mass/Vol] 0.6 mg/dL Normal 0.2-1.3 [facility] Comment on above: Order Comment: Speci men Type: BLOOD SPECIMENOrdering Facility: [facility] Address: [address] [place] [address] Performed By: #### 2 4325-3 ####[facility] MILLTOWNCLIA [id number] [place] [address] [place] Bilirubin.conjugated [Mass/Vol] 0.3 mg/dL High <0.3 [facility] Comment on above: Order Comment: Speci men Type: BLOOD SPECIMENOrdering Facility: [facility] Address: [address] [place] [address] Performed By: #### 2 4325-3 ####[facility]ITALWNCLIA [id number] [place] [address] [place] Protein [Mass/Vol] 6.8 g/dL Normal 6.3-8.0 [facility] Comment on above: Order Comment: Speci men Type: BLOOD SPECIMENOrdering Facility: [facility] Address: [address] [place] [address] Performed By: #### 2 4325-3 ####[facility] MILLWNCLIA [id number] [place] [address] [place] Hepatic function 2000 panelo n 09-01-2024 Albumin [Mass/Vol] 4.0 g/dL Normal 3.9-4.9 [facility] Comment on above: Order Comment: Speci men Type: BLOOD SPECIMENOrdering Facility: [facility] Address: [address] [place] [address] Performed By: #### 2 4325-3 ####[facility] LABCLIA [id number] [address] [place] [address] [place] ALP [Catalytic activity/Vol] 284 U/L High 38-113 [facility] Comment on above: Order Comment: Speci men Type: BLOOD SPECIMENOrdering Facility: [facility] Address: [address] [place] [address] Performed By: #### 2 4325-3 ####[facility] LABCLIA [id number] [address], [facility] [place] ALT [Catalytic activity/Vol] 87 U/L High 10-54 [facility] Comment on above: Order Comment: Speci men Type: BLOOD SPECIMENOrdering Facility: [facility] Address: [address] [place] [address] Performed By: #### 2 4325-3 ####[facility] LABCLIA [id number] [address], [place] [address] [place] AST [Catalytic activity/Vol] 33 U/L Normal 14-40 [facility] Comment on above: Order Comment: Speci men Type: BLOOD SPECIMENOrdering Facility: [facility] Address: [address] [place] [address] Performed By: #### 2 4325-3 ####[facility] LABCLIA [id number] [place] [id number] [place] Bilirubin [Mass/Vol] 0.7 mg/dL Normal 0.2-1.3 [facility] Comment on above: Order Comment: Speci men Type: BLOOD SPECIMENOrdering Facility: [facility] Address: [address] [place], [place] [id number] Performed By: #### 2 4325-3 ####[facility] LABCLIA [id number] [place] [id number] [place] Bilirubin.conjugated [Mass/Vol] 0.4 mg/dL High <0.3 [facility] Comment on above: Order Comment: Speci men Type: BLOOD SPECIMENOrdering Facility: [facility] Address: [address] [place] [address] Performed By: #### 2 4325-3 ####[facility] [id number] [place] [id number] [place] Protein [Mass/Vol] 6.6 g/dL Normal 6.3-8.0 [facility] Comment on above: Order Comment: Speci men Type: BLOOD SPECIMENOrdering Facility: [facility] Address: [address] [place] [id number] Performed By: #### 2 4325-3 ####[facility] LABIA [id number] [place] [id number] [place] MR Biliary ducts and Pancrea tic duct WO and W contrast [place] 08-27-2024 * * *Final Report* * * DATE OF EXAM: Aug 27 2024 10:35AM [facility] 0730 - MRI PANC/ALBERT WO/W IVCON / PROCEDURE REASON: Abnormal results of liver function studies * * * * Physician Interpretation * * * * MRI OF THE ABDOMEN (PANCREAS-BILIARY) WITHOUT AND WITH IV CONTRAST, 3D REFORMATTED IMAGES HISTORY: Unexplained persistent elevated alkaline phosphatase and mild transaminitis. Negative autoimmune serology. MR for biliary tree evaluation. TECHNIQUE: Magnet: 1.5T scanner. Multiplanar MRI of the abdomen with multiple sequences, performed before and after intravenous contrast. Image post-processing {Maximum intensity Projection (MIP), Volume-rendered (VR), Surface shaded display images (SSD) or complex volumetric analysis} was performed at an off-line workstation with concurrent physician supervision, with images created, reviewed and archived. Contrast: IV: 7 ml of Elucirem COMPARISON: CT 08/15/2024 RESULT: Liver: Normal liver morphology. No hepatic steatosis. Scattered bilobar benign hepatic cysts. No suspicious hepatic lesion. Biliary: * No bile duct dilation. * No biliary filling defect. * Gallbladder is unremarkable. Spleen: No mass. No splenomegaly. Pancreas: No mass or duct dilation. Adrenals: No mass. Kidneys: No solid mass. No hydronephrosis. Bilateral benign parapelvic cysts, similar to prior GI tract: No dilation or wall thickening. Lymph nodes: No abdominal lymphadenopathy. Mesentery/Peritoneum: No ascites. No mass. Vasculature: The celiac axis and SMA are patent. The portal vein and branches, splenic vein, SMV, and hepatic veins are patent. Bones/Soft Tissues: No significant finding. Lower thorax: Unremarkable. DIVISION OF RADIOLOGY Provider, Mary[facility]arlyThe [facility]/27/[facility]24 * * *Final Report* * * DATE OF EXAM: Aug 27 2024 10:35AM [facility] 0730 - MRI PANC/ALBERT WO/W IVCON / PROCEDURE REASON: Abnormal results of liver function studies * * * * Physician Interpretation * * * * MRI OF THE ABDOMEN (PANCREAS-BILIARY) WITHOUT AND WITH IV CONTRAST, 3D REFORMATTED IMAGES HISTORY: Unexplained persistent elevated alkaline phosphatase and mild transaminitis. Negative autoimmune serology. MR for biliary tree evaluation. TECHNIQUE: Magnet: 1.5T scanner. Multiplanar MRI of the abdomen with multiple sequences, performed before and after intravenous contrast. Image post-processing {Maximum intensity Projection (MIP), Volume-rendered (VR), Surface shaded display images (SSD) or complex volumetric analysis} was performed at an off-line workstation with concurrent physician supervision, with images created, reviewed and archived. Contrast: IV: 7 ml of Elucirem COMPARISON: CT 08/15/2024 RESULT: Liver: Normal liver morphology. No hepatic steatosis. Scattered bilobar benign hepatic cysts. No suspicious hepatic lesion. Biliary: * No bile duct dilation. * No biliary filling defect. * Gallbladder is unremarkable. Spleen: No mass. No splenomegaly. Pancreas: No mass or duct dilation. Adrenals: No mass. Kidneys: No solid mass. No hydronephrosis. Bilateral benign parapelvic cysts, similar to prior GI tract: No dilation or wall thickening. Lymph nodes: No abdominal lymphadenopathy. Mesentery/Peritoneum: No ascites. No mass. Vasculature: The celiac axis and SMA are patent. The portal vein and branches, splenic vein, SMV, and hepatic veins are patent. Bones/Soft Tissues: No significant finding. Lower thorax: Unremarkable. IMPRESSION IMPRESSION: No biliary dilatation. No acute abdominal process. I agree that this report by the resident or fellow represents my interpretation of the study. Dog Barber: PSCB Transcribe Date/Time: Aug 27 2024 10:42A Dictated by : MARCELA MILLARD MD This examination was interpreted and the report reviewed and electronically signed by: ANDREA ALLRED MD on Aug 27 2024 1:44PM EST [facility] MR Unspecified body region 3 D post processingon 08-27-2024 * * *Final Report* * * DATE OF EXAM: Aug 27 2024 10:35AM [facility] 0280 - MRI 3D POST PROCESSING / PROCEDURE REASON: Abnormal results of liver function studies * * * * Physician Interpretation * * * * MRI OF THE ABDOMEN (PANCREAS-BILIARY) WITHOUT AND WITH IV CONTRAST, 3D REFORMATTED IMAGES HISTORY: Unexplained persistent elevated alkaline phosphatase and mild transaminitis. Negative autoimmune serology. MR for biliary tree evaluation. TECHNIQUE: Magnet: 1.5T scanner. Multiplanar MRI of the abdomen with multiple sequences, performed before and after intravenous contrast. Image post-processing {Maximum intensity Projection (MIP), Volume-rendered (VR), Surface shaded display images (SSD) or complex volumetric analysis} was performed at an off-line workstation with concurrent physician supervision, with images created, reviewed and archived. Contrast: IV: 7 ml of Elucirem COMPARISON: CT 08/15/2024 RESULT: Liver: Normal liver morphology. No hepatic steatosis. Scattered bilobar benign hepatic cysts. No suspicious hepatic lesion. Biliary: * No bile duct dilation. * No biliary filling defect. * Gallbladder is unremarkable. Spleen: No mass. No splenomegaly. Pancreas: No mass or duct dilation. Adrenals: No mass. Kidneys: No solid mass. No hydronephrosis. Bilateral benign parapelvic cysts, similar to prior GI tract: No dilation or wall thickening. Lymph nodes: No abdominal lymphadenopathy. Mesentery/Peritoneum: No ascites. No mass. Vasculature: The celiac axis and SMA are patent. The portal vein and branches, splenic vein, SMV, and hepatic veins are patent. Bones/Soft Tissues: No significant finding. Lower thorax: Unremarkable. DIVISION OF RADIOLOGY Provider, [facility] - 08/27/2024 * * *Final Report* * * DATE OF EXAM: Aug 27 2024 10:35AM [facility] 0280 - MRI 3D POST PROCESSING / PROCEDURE REASON: Abnormal results of liver function studies * * * * Physician Interpretation * * * * MRI OF THE ABDOMEN (PANCREAS-BILIARY) WITHOUT AND WITH IV CONTRAST, 3D REFORMATTED IMAGES HISTORY: Unexplained persistent elevated alkaline phosphatase and mild transaminitis. Negative autoimmune serology. MR for biliary tree evaluation. TECHNIQUE: Magnet: 1.5T scanner. Multiplanar MRI of the abdomen with multiple sequences, performed before and after intravenous contrast. Image post-processing {Maximum intensity Projection (MIP), Volume-rendered (VR), Surface shaded display images (SSD) or complex volumetric analysis} was performed at an off-line workstation with concurrent physician supervision, with images created, reviewed and archived. Contrast: IV: 7 ml of Elucirem COMPARISON: CT 08/15/2024 RESULT: Liver: Normal liver morphology. No hepatic steatosis. Scattered bilobar benign hepatic cysts. No suspicious hepatic lesion. Biliary: * No bile duct dilation. * No biliary filling defect. * Gallbladder is unremarkable. Spleen: No mass. No splenomegaly. Pancreas: No mass or duct dilation. Adrenals: No mass. Kidneys: No solid mass. No hydronephrosis. Bilateral benign parapelvic cysts, similar to prior GI tract: No dilation or wall thickening. Lymph nodes: No abdominal lymphadenopathy. Mesentery/Peritoneum: No ascites. No mass. Vasculature: The celiac axis and SMA are patent. The portal vein and branches, splenic vein, SMV, and hepatic veins are patent. Bones/Soft Tissues: No significant finding. Lower thorax: Unremarkable. IMPRESSION IMPRESSION: No biliary dilatation. No acute abdominal process. I agree that this report by the resident or fellow represents my interpretation of the study. Dog Barber: RAMILA Transcribe Date/Time: Aug 27 2024 10:42A Dictated by : MARCELA MILLARD MD This examination was interpreted and the report reviewed and electronically signed by: ANDREA ALLRED MD on Aug 27 2024 1:44PM [facility] MRI 3D POST PROCESSINGon MRI 3D POST PROCESSING * * *Final Report * * * DATE OF EXAM: Aug 27 2024 10:35AM [facility] 0280 - MRI 3D POST PROCESSING / PROCEDURE REASON: Abnormal results of liver function studies * * * * Physician Interpretation * * * * MRI OF THE ABDOMEN (PANCREAS-BILIARY) WITHOUT AND WITH IV CONTRAST, 3D REFORMATTED IMAGES HISTORY: Unexplained persistent elevated alkaline phosphatase and mild transaminitis. Negative autoimmune serology. MR for biliary tree evaluation. TECHNIQUE: Magnet: 1.5T scanner. Multiplanar MRI of the abdomen with multiple sequences, performed before and after intravenous contrast. Image post-processing {Maximum intensity Projection (MIP), Volume-rendered (VR), Surface shaded display images (SSD) or complex volumetric analysis} was performed at an off-line workstation with concurrent physician supervision, with images created, reviewed and archived. Contrast: IV: 7 ml of Elucirem COMPARISON: CT 08/15/2024 RESULT: Liver: Normal liver morphology. No hepatic steatosis. Scattered bilobar benign hepatic cysts. No suspicious hepatic lesion. Biliary: * No bile duct dilation. * No biliary filling defect. * Gallbladder is unremarkable. Spleen: No mass. No splenomegaly. Pancreas: No mass or duct dilation. Adrenals: No mass. Kidneys: No solid mass. No hydronephrosis. Bilateral benign parapelvic cysts, similar to prior GI tract: No dilation or wall thickening. Lymph nodes: No abdominal lymphadenopathy. Mesentery/Peritoneum: No ascites. No mass. Vasculature: The celiac axis and SMA are patent. The portal vein and branches, splenic vein, SMV, and hepatic veins are patent. Bones/Soft Tissues: No significant finding. Lower thorax: Unremarkable. IMPRESSION: No biliary dilatation. No acute abdominal process. I agree that this report by the resident or fellow represents my interpretation of the study. Dog Barber: RAMILA Transcribe Date/Time: Aug 27 2024 10:42A Dictated by : MARCELA MILLARD MD This examination was interpreted and the report reviewed and electronically signed by: ANDREA ALLRED MD on Aug 27 2024 1:44PM EST [id number] Normal [facility] MRI PANC/ALBERT WO/W IVCONon MRI PANC/ALBERT WO/W IVCON * * *Final Report* * * DATE OF EXAM: Aug 27 2024 10:35AM [facility] 0730 - MRI PANC/ALBERT WO/W IVCON / PROCEDURE REASON: Abnormal results of liver function studies * * * * Physician Interpretation * * * * MRI OF THE ABDOMEN (PANCREAS-BILIARY) WITHOUT AND WITH IV CONTRAST, 3D REFORMATTED IMAGES HISTORY: Unexplained persistent elevated alkaline phosphatase and mild transaminitis. Negative autoimmune serology. MR for biliary tree evaluation. TECHNIQUE: Magnet: 1.5T scanner. Multiplanar MRI of the abdomen with multiple sequences, performed before and after intravenous contrast. Image post-processing {Maximum intensity Projection (MIP), Volume-rendered (VR), Surface shaded display images (SSD) or complex volumetric analysis} was performed at an off-line workstation with concurrent physician supervision, with images created, reviewed and archived. Contrast: IV: 7 ml of Elucirem COMPARISON: CT 08/15/2024 RESULT: Liver: Normal liver morphology. No hepatic steatosis. Scattered bilobar benign hepatic cysts. No suspicious hepatic lesion. Biliary: * No bile duct dilation. * No biliary filling defect. * Gallbladder is unremarkable. Spleen: No mass. No splenomegaly. Pancreas: No mass or duct dilation. Adrenals: No mass. Kidneys: No solid mass. No hydronephrosis. Bilateral benign parapelvic cysts, similar to prior GI tract: No dilation or wall thickening. Lymph nodes: No abdominal lymphadenopathy. Mesentery/Peritoneum: No ascites. No mass. Vasculature: The celiac axis and SMA are patent. The portal vein and branches, splenic vein, SMV, and hepatic veins are patent. Bones/Soft Tissues: No significant finding. Lower thorax: Unremarkable. IMPRESSION: No biliary dilatation. No acute abdominal process. I agree that this report by the resident or fellow represents my interpretation of the study. Dog Barber: RAMILA Transcribe Date/Time: Aug 27 2024 10:42A Dictated by : MARCELA MILLARD MD This examination was interpreted and the report reviewed and electronically signed by: ANDREA ALLRED MD on Aug 27 2024 1:44PM EST [id number] Normal [facility] No Panel Informationon 08-27 IMPRESSION: No biliary dilatation. No acute abdominal process. I agree that this report by the resident or fellow represents my interpretation of the study. Dog Barber: RAMILA Transcribe Date/Time: Aug 27 2024 10:42A Dictated by : MARCELA MILLARD MD This examination was interpreted and the report reviewed and electronically signed by: ANDREA ALLRED MD on Aug 27 2024 1:44PM EST DIVISION OF RADIOLOGY Radiology Study observation (narrative) [facility] No Panel InformationOrdered By: [facility] Provider on 08-27-2024 [facility] ANCAon 08-26-2024 Atypical pANCA <1:20 Normal Neg:<1:20 [facility] Comment on above: Result Comment: The atypical pANCA pattern has been observed in a significant percentage of patients with ulcerative colitis, primary sclerosing cholangitis and autoimmune hepatitis. Performed By: #### L 504.2610, L501.6710, L3300.1200, L3000.0375, L3400.1500, L800.1280, L3100.5440, L3410.2400, L500.4050, L803.2200, L300.3900, L101.9900, L3100.3425, L100.0100, L3100.5850 ####[facility] [address] [place], [address] Cytoplasmic Ab <1:20 Normal Neg:<1:20 [facility] Comment on above: Performed By: #### L 504.2610, L501.6710, L3300.1200, L3000.0375, L3400.1500, L800.1280, L3100.5440, L3410.2400, L500.4050, L803.2200, L300.3900, L101.9900, L3100.3425, L100.0100, L3100.5850 ####[facility] [address] [place], [address] Perinuclear Ab. <1:20 Normal Neg:<1:20 [facility] Comment on above: Result Comment: The presence of positive fluorescence exhibiting P-ANCA or C-ANCA patterns alone is not specific for the diagnosis of Imtiaz's Granulomatosis (WG) or microscopic polyangiitis. Decisions about treatment should not be based solely on ANCA IFA results. The International ANCA Group Consensus recommends follow up testing of positive sera with both WY- 3 and MPO-ANCA enzyme immunoassays. As many as 5% serum samples are positive only by EIA. Ref. AM J Clin Pathol 1999;111:507-513. Performed By: #### L 504.2610, L501.6710, L3300.1200, L3000.0375, L3400.1500, L800.1280, L3100.5440, L3410.2400, L500.4050, L803.2200, L300.3900, L101.9900, L3100.3425, L100.0100, L3100.5850 ####[facility] [address] [place], [address] Anti-Smooth Muscle ABSon ANTISMOOTH MUSC 3 Units Normal 0-19 [facility] Comment on above: Result Comment: Nega tive 0 - 19 Weak positive 20 - 30 Moderate to strong positive >30 Actin Antibodies are found in 52-85% of patients with autoimmune hepatitis or chronic active hepatitis and in 22% of patients with primary biliary cirrhosis. Performed By: #### L 504.2610, L501.6710, L3300.1200, L3000.0375, L3400.1500, L800.1280, L3100.5440, L3410.2400, L500.4050, L803.2200, L300.3900, L101.9900, L3100.3425, L100.0100, L3100.5850 ####[facility] [address] [facility] [place], [address] CMV Acute Antibody IgMon CMV Ab, IgM < 30.0 Normal 0.0-29.9 [facility] Comment on above: Result Comment: Nega tive <30.0 Equivocal 30.0 - 34.9 Positive >34.9 A positive result is generally indicative of acute infection, reactivation or persistent IgM production. Performed at: [facility] [address] [id number] Application Assistant: Uriel Rojas PhD, Phone: [phone] Performed By: #### L 504.2610, L501.6710, L3300.1200, L3000.0375, L3400.1500, L800.1280, L3100.5440, L3410.2400, L500.4050, L803.2200, L300.3900, L101.9900, L3100.3425, L100.0100, L3100.5850 ####[facility] [address] [place], [place], [phone] Celiac Disease Profileon ENDOMYSIAL IGA Negative Normal Negative [facility] Comment on above: Performed By: #### L 504.2610, L501.6710, L3300.1200, L3000.0375, L3400.1500, L800.1280, L3100.5440, L3410.2400, L500.4050, L803.2200, L300.3900, L101.9900, L3100.3425, L100.0100, L3100.5850 ####[facility] [address] [place], [place], [phone] tTG IGA <2 Normal 0-3 [facility] Comment on above: Result Comment: Nega tive 0 - 3 Weak Positive 4 - 10 Positive >10 Tissue Transglutaminase (tTG) has been identified as the endomysial antigen. Studies have demonstr- ated that endomysial IgA antibodies have over 99% specificity for gluten sensitive enteropathy. Performed By: #### L 504.2610, L501.6710, L3300.1200, L3000.0375, L3400.1500, L800.1280, L3100.5440, L3410.2400, L500.4050, L803.2200, L300.3900, L101.9900, L3100.3425, L100.0100, L3100.5850 ####[facility] [address] [place], [place], [phone] EBV Acute Prof IgG / IgMon 0 08-26-2024 EB Ab VCA, IgG < 18.0 Normal 0.0-17.9 [facility] Comment on above: Result Comment: Nega tive <18.0 Equivocal 18.0 - 21.9 Positive >21.9 Performed By: #### L 504.2610, L501.6710, L3300.1200, L3000.0375, L3400.1500, L800.1280, L3100.5440, L3410.2400, L500.4050, L803.2200, L300.3900, L101.9900, L3100.3425, L100.0100, L3100.5850 ####[facility] [address] [place], [address] EBV Ab VCA, IgM < 36.0 Normal 0.0-35.9 [facility] Comment on above: Result Comment: Nega tive <36.0 Equivocal 36.0 - 43.9 Positive >43.9 Performed By: #### L 504.2610, L501.6710, L3300.1200, L3000.0375, L3400.1500, L800.1280, L3100.5440, L3410.2400, L500.4050, L803.2200, L300.3900, L101.9900, L3100.3425, L100.0100, L3100.5850 ####[facility] [address] [place], [address] EBV NuAg Ab,IgG < 18.0 Normal 0.0-17.9 [facility] Comment on above: Result Comment: Nega tive <18.0 Equivocal 18.0 - 21.9 Positive >21.9 Performed By: #### L 504.2610, L501.6710, L3300.1200, L3000.0375, L3400.1500, L800.1280, L3100.5440, L3410.2400, L500.4050, L803.2200, L300.3900, L101.9900, L3100.3425, L100.0100, L3100.5850 ####[facility] [address] [facility] [place], [address] INTERPRETATION Comment Normal . [facility] Comment on above: Result Comment: EBV Interpretation Chart Alvarez: Antibody Present + Antibody Absent - Interpretation VCA-IgM VCA-IgG EBNA-IgG No previous infection/ - - - Susceptible Primary infection (new + + - or recent) Past Infection +or- + + See comment below* + - - *Results indicate infection with EBV at some time however cannot predict the timing of the infection since antibodies to EBNA usually develop after primary infection or, alternatively, approximately 5-10% of patients with EBV never develop antibodies to EBNA. Performed By: #### L 504.2610, L501.6710, L3300.1200, L3000.0375, L3400.1500, L800.1280, L3100.5440, L3410.2400, L500.4050, L803.2200, L300.3900, L101.9900, L3100.3425, L100.0100, L3100.5850 ####[facility] [address] [place], [address] Hepatic function 2000 panelo n 08-26-2024 Albumin [Mass/Vol] 4.2 g/dL Normal 3.9-4.9 [facility] Comment on above: Order Comment: Speci evert Type: BLOOD SPECIMENOrdering Facility: [facility] Address: [address] [place] [address] Performed By: #### 2 4325-3 ####[facility] LABCLIA [id number] [place] [address] [place] ALP [Catalytic activity/Vol] 423 U/L High 38-113 [facility] Comment on above: Order Comment: Miltoni evert Type: BLOOD SPECIMENOrdering Facility: [facility] Address: [address] [place] [address] Performed By: #### 2 4325-3 ####[facility] LABCLIA [id number] [place] [address] [place] ALT [Catalytic activity/Vol] 242 U/L High 10-54 [facility] Comment on above: Order Comment: Miltoni men Type: BLOOD SPECIMENOrdering Facility: [facility] Address: [address] [place] [address] Performed By: #### 2 4325-3 ####[facility] LABCLIA [id number] [address] [place] [address] [place] AST [Catalytic activity/Vol] 75 U/L High 14-40 [facility] Comment on above: Order Comment: Speci men Type: BLOOD SPECIMENOrdering Facility: [facility] Address: [address] [place] [address] Performed By: #### 2 4325-3 ####[facility] LABCLIA [id number] [address] [place] [address] [place] Bilirubin [Mass/Vol] 1.3 mg/dL Normal 0.2-1.3 [facility] Comment on above: Order Comment: Speci men Type: BLOOD SPECIMENOrdering Facility: [facility] Address: [address] [place] [address] Performed By: #### 2 4325-3 ####[facility] LABCLIA [id number] [place] [address] [place] Bilirubin.conjugated [Mass/Vol] 0.6 mg/dL High <0.3 [facility] Comment on above: Order Comment: Speci men Type: BLOOD SPECIMENOrdering Facility: [facility] Address: [address] [place] [address] Performed By: #### 2 4325-3 ####[facility] LABCLIA [id number] [address], [facility] [place] Protein [Mass/Vol] 7.1 g/dL Normal 6.3-8.0 [facility] Comment on above: Order Comment: Speci men Type: BLOOD SPECIMENOrdering Facility: [facility] Address: [address] [place] [address] Performed By: #### 2 4325-3 ####[facility] LABCLIA [id number] [address] [place] [address] [place] Hepatitis Panel Acuteon 05-0 COMMENT Comment Normal . [facility] Comment on above: Result Comment: Not infected with HCV unless early or acute infection is suspected (which may be delayed in an immunocompromised individual), or other evidence exists to indicate HCV infection. Performed By: #### L 504.2610, L501.6710, L3300.1200, L3000.0375, L3400.1500, L800.1280, L3100.5440, L3410.2400, L500.4050, L803.2200, L300.3900, L101.9900, L3100.3425, L100.0100, L3100.5850 ####[facility] [address] [place], [address] HEP B CORE,IgM Negative Normal Negative [facility] Comment on above: Performed By: #### L 504.2610, L501.6710, L3300.1200, L3000.0375, L3400.1500, L800.1280, L3100.5440, L3410.2400, L500.4050, L803.2200, L300.3900, L101.9900, L3100.3425, L100.0100, L3100.5850 ####[facility] [address] [facility] [place], [address] HEP B SURF AG Negative Normal Negative [facility] Comment on above: Performed By: #### L 504.2610, L501.6710, L3300.1200, L3000.0375, L3400.1500, L800.1280, L3100.5440, L3410.2400, L500.4050, L803.2200, L300.3900, L101.9900, L3100.3425, L100.0100, L3100.5850 ####[facility] [address] [place], [address] HEP C VIRUS AB Non-Reactive Normal Non Reactive [facility] Comment on above: Performed By: #### L 504.2610, L501.6710, L3300.1200, L3000.0375, L3400.1500, L800.1280, L3100.5440, L3410.2400, L500.4050, L803.2200, L300.3900, L101.9900, L3100.3425, L100.0100, L3100.5850 ####[facility] [address] [place], [place], [phone] HEPATITIS A-IgM Negative Normal Negative [facility] Comment on above: Result Comment: A ne gative anti-HAV IgM result suggests no recent or current HAV infection. Performed By: #### L 504.2610, L501.6710, L3300.1200, L3000.0375, L3400.1500, L800.1280, L3100.5440, L3410.2400, L500.4050, L803.2200, L300.3900, L101.9900, L3100.3425, L100.0100, L3100.5850 ####[facility] [address] [place], [address] JANET + Protein Elect, Serumon 08-26-2024 Albumin [Mass/Vol] 3.4 g/dL Normal 2.9-4.4 [facility] Comment on above: Order Comment: N Performed By: #### L 504.2610, L501.6710, L3300.1200, L3000.0375, L3400.1500, L800.1280, L3100.5440, L3410.2400, L500.4050, L803.2200, L300.3900, L101.9900, L3100.3425, L100.0100, L3100.5850 ####[facility] [address] [place], [address] Albumin/Globulin [Mass ratio] 1.1 {ratio} Normal 0.7-1.7 [facility] Comment on above: Order Comment: N Performed By: #### L 504.2610, L501.6710, L3300.1200, L3000.0375, L3400.1500, L800.1280, L3100.5440, L3410.2400, L500.4050, L803.2200, L300.3900, L101.9900, L3100.3425, L100.0100, L3100.5850 ####[facility] [address] [place], [place], [phone]) UHLUV-1-HKRB 0.4 g/dL Normal 0.0-0.4 [facility] Comment on above: Order Comment: N Performed By: #### L 504.2610, L501.6710, L3300.1200, L3000.0375, L3400.1500, L800.1280, L3100.5440, L3410.2400, L500.4050, L803.2200, L300.3900, L101.9900, L3100.3425, L100.0100, L3100.5850 ####[facility] [address] [place], [address](105) MXXND-4-CUGN 0.8 g/dL Normal 0.4-1.0 [facility] Comment on above: Order Comment: N Performed By: #### L 504.2610, L501.6710, L3300.1200, L3000.0375, L3400.1500, L800.1280, L3100.5440, L3410.2400, L500.4050, L803.2200, L300.3900, L101.9900, L3100.3425, L100.0100, L3100.5850 ####[facility] [address] [place], [phone] BETA GLOBULIN 1.1 g/dL Normal 0.7-1.3 [facility] Comment on above: Order Comment: N Performed By: #### L 504.2610, L501.6710, L3300.1200, L3000.0375, L3400.1500, L800.1280, L3100.5440, L3410.2400, L500.4050, L803.2200, L300.3900, L101.9900, L3100.3425, L100.0100, L3100.5850 ####[facility] [address] [place], [address] GAMMA GLOBULIN 1.0 g/dL Normal 0.4-1.8 [facility] Comment on above: Order Comment: N Performed By: #### L 504.2610, L501.6710, L3300.1200, L3000.0375, L3400.1500, L800.1280, L3100.5440, L3410.2400, L500.4050, L803.2200, L300.3900, L101.9900, L3100.3425, L100.0100, L3100.5850 ####[facility] [address] [place], [address] Globulin (S) [Mass/Vol] 3.3 g/dL Normal 2.2-3.9 [facility] Comment on above: Order Comment: N Performed By: #### L 504.2610, L501.6710, L3300.1200, L3000.0375, L3400.1500, L800.1280, L3100.5440, L3410.2400, L500.4050, L803.2200, L300.3900, L101.9900, L3100.3425, L100.0100, L3100.5850 ####[facility] [address] [place], [place], [phone] JANET RESULT,S Comment Abnormal . [facility] Comment on above: Order Comment: N Result Comment: Immu nofixation shows IgG monoclonal protein with lambda light chain specificity. Performed By: #### L 504.2610, L501.6710, L3300.1200, L3000.0375, L3400.1500, L800.1280, L3100.5440, L3410.2400, L500.4050, L803.2200, L300.3900, L101.9900, L3100.3425, L100.0100, L3100.5850 ####[facility] [address] [place], [place], [phone] IMMUNOGLOB A QN 142 mg/dL Normal 61-437 [facility] Comment on above: Order Comment: N Performed By: #### L 504.2610, L501.6710, L3300.1200, L3000.0375, L3400.1500, L800.1280, L3100.5440, L3410.2400, L500.4050, L803.2200, L300.3900, L101.9900, L3100.3425, L100.0100, L3100.5850 ####[facility] [address] [place], [place], [phone] IMMUNOGLOB G QN 1042 mg/dL Normal 603-1613 [facility] Comment on above: Order Comment: N Performed By: #### L 504.2610, L501.6710, L3300.1200, L3000.0375, L3400.1500, L800.1280, L3100.5440, L3410.2400, L500.4050, L803.2200, L300.3900, L101.9900, L3100.3425, L100.0100, L3100.5850 ####[facility] [address] [place], [address] IMMUNOGLOB M QN 35 mg/dL Normal 20-172 [facility] Comment on above: Order Comment: N Performed By: #### L 504.2610, L501.6710, L3300.1200, L3000.0375, L3400.1500, L800.1280, L3100.5440, L3410.2400, L500.4050, L803.2200, L300.3900, L101.9900, L3100.3425, L100.0100, L3100.5850 ####[facility] [address] [place], [place], [phone]) M-Linden 0.3 g/dL Abnormal Not Observed [facility] Comment on above: Order Comment: N Performed By: #### L 504.2610, L501.6710, L3300.1200, L3000.0375, L3400.1500, L800.1280, L3100.5440, L3410.2400, L500.4050, L803.2200, L300.3900, L101.9900, L3100.3425, L100.0100, L3100.5850 ####[facility] [address] [place], [place], [phone] NOTE: Comment Normal . [facility] Comment on above: Order Comment: N Result Comment: Prot ein electrophoresis scan will follow via computer, mail, or critical systems technician delivery. Performed By: #### L 504.2610, L501.6710, L3300.1200, L3000.0375, L3400.1500, L800.1280, L3100.5440, L3410.2400, L500.4050, L803.2200, L300.3900, L101.9900, L3100.3425, L100.0100, L3100.5850 ####[facility] [address] [place], [address] Protein [Mass/Vol] 6.7 g/dL Normal 6.0-8.5 [facility] Comment on above: Order Comment: N Performed By: #### L 504.2610, L501.6710, L3300.1200, L3000.0375, L3400.1500, L800.1280, L3100.5440, L3410.2400, L500.4050, L803.2200, L300.3900, L101.9900, L3100.3425, L100.0100, L3100.5850 ####[facility] [address] [place], [address] PT panel Coag (PPP)on 2024 INR Coag (PPP) [Relative time] 1.1 {INR} Normal 0.9-1.3 [facility] Comment on above: Order Comment: Celso loyd Type: BLOOD SPECIMENOrdering Facility: [facility] Address: [address] [place] [address] Result Comment: Lorena min K Antagonist (VKA) Therapeutic Range: INR 2 to 3 (Target INR of 2.5) Note: For patients treated with VKA drugs, such as warfarin, the [employer] 2012 Guideline recommends a therapeutic INR range of 2 to 3 (target INR of 2.5). This recommendation includes high-risk patients with antiphospholipid syndrome with previous arterial or venous thromboembolism, current-generation mechanical or bioprosthetic aortic heart valve replacement. Note: Patients with mechanical aortic valve replacement and additional risk factors for thromboembolic events (atrial fibrillation, previous thromboembolism, LV dysfunction, hypercoagulable conditions) or an older generation mechanical AVR (i.e., ball in-Cage) or any mechanical MVR should have a INR therapeutic range of 2.5 to 3.5 (target INR of 3). Jany GH, et al. Chest 2012, 141:7S-47S Mikey RA, et al. [facility] 2017, 70: 252-289 Performed By: #### 3 4528-0 ####[facility]IA [id number] [place] [address] [place] PT Coag (PPP) [Time] 11.5 s Normal 9.7-13.0 [facility] Comment on above: Order Comment: Celso loyd Type: BLOOD SPECIMENOrdering Facility: [facility] Address: [address] [place] [address] Performed By: #### 3 4528-0 ####[facility]IA [id number] [place] [address] [place] VIVIENNE Comprehensive Panelon ANTI-CENT B AB <0.2 Normal 0.0-0.9 [facility] Comment on above: Performed By: #### L 504.2610, L501.6710, L3300.1200, L3000.0375, L3400.1500, L800.1280, L3100.5440, L3410.2400, L500.4050, L803.2200, L300.3900, L101.9900, L3100.3425, L100.0100, L3100.5850 #### [facility] [address] [place], [place], [id number] ANTI-DNA (DS)AB <1 Normal 0-9 [facility] Comment on above: Result Comment: Nega tive <5 Equivocal 5 - 9 Positive >9 Performed By: #### L 504.2610, L501.6710, L3300.1200, L3000.0375, L3400.1500, L800.1280, L3100.5440, L3410.2400, L500.4050, L803.2200, L300.3900, L101.9900, L3100.3425, L100.0100, L3100.5850 #### [facility] [address] [facility] [place], [address] Anti-Mitochondrial ABon 05-0 -2024 ANTIMITOCHON AB <20.0 Normal 0.0-20.0 [facility] Comment on above: Result Comment: Nega tive 0.0 - 20.0 Equivocal 20.1 - 24.9 Positive >24.9 Mitochondrial (M2) Antibodies are found in 90-96% of patients with primary biliary cirrhosis. Performed at: [address] [id number] Application Assistant: Uriel Rojas PhD, Phone: [phone] Performed By: #### L 504.2610, L501.6710, L3300.1200, L3000.0375, L3400.1500, L800.1280, L3100.5440, L3410.2400, L500.4050, L803.2200, L300.3900, L101.9900, L3100.3425, L100.0100, L3100.5850 ####[facility] [address] [facility] [place], [address] [facility] 08-25-2024 [facility] Telephone (INTMWS) -- CHLOÉ GUTIERREZ ([id number]) 1955 M Date Time Provider Department 08/25/24 MATEO AYALA INTMWS During your visit today, we recorded the following information about you: Patito Lambert 08/25/2024 2:25 PM Signed Patient called asking if lab results are in yet? Patient is asking if he can go out of town for work for about 10 days Can be reached at [phone] Please advise Awilda Mattson APRN.[employer] 08/25/2024 4:15 PM Signed I would encourage that he stay local until we have a better idea of what is causing his problems. Liver enzymes remain elevated. AST and ALT are trending downward however alkaline phosphatase is trending upward. Smooth M antibody is negative. VIVIENNE is negative. Recommend continuing to avoid acetaminophen, vpbp-gvg-fjharbu supplements or medications, and alcohol use. Recommend we complete a pro time and MRCP/MRI. Please schedule. Hepatic function panel weekly for the next couple of weeks. Urology has also recommended a workup of his gross hematuria. Plan culture cytology and cystoscopy. Marissa Ordonez LPN 08/25/2024 4:50 PM Signed Patient notified of providers message and verbalized understanding. Patient states Dr. Garibay had ordered a MRI but doesn't know exactly what kind of MRI it is and he is still waiting for approval. Patient is agreeable to schedule pro time and MRCP/MRI here with [facility] and he will check with Dr. Melchor office to see if it is the same MRI they are trying to schedule. Encounter routed to [facility] to assist patient is scheduling Kiersten Herbert 08/26/2024 9:20 AM Signed Spoke with patient who ad just finished at the lab for his Pro Time and scheduled MRI. Patient also asked which [facility] is closest so that, if he should feel the need to go to an ER, he wanted to know which was closest. This PSS checked and advised [facility] is the closest to his home. Kiersten Herbert Allergies As of Date: 08/25/2024 Noted Allergy Reaction SEASONAL ALLERGIES 08/14/2024 14 - Other: See Comments Date Reviewed: 08/19/2024 Reviewed by: Holly Jorge MD - Fully Assessed Reason for Visit: Results [95] Cmt: labs Primary Visit Diagnosis:Abnormal results of liver function studies [R94.5] Order(s):PROTHROMBIN TIME [SQPT] Order #: [id number] FUTURE MRI PANC/ALBERT WO/W IVCON [[id number]] Order #: [id number] FUTURE MRI 3D POST PROCESSING [[id number]] Order #: [id number] FUTURE iv contrast (will be provided with radiology test)MRI PANC/ALBERT Inject, intravenously, once for 1 dose. No IV access, insert saline lock prior to the beginning of sedation, infusion, injection of imaging exam. Discontinue saline lock post exam. If Pt. has a central line or IVAD, may access for administration according to line specific nursing protocol. Once exam is complete flush line and de-access according to line specific nursing protocol in the MR contrast administration guidelines link.Disp: 1 eachRfl: 0 HEPATIC FUNCTION PNL [SQHFP] Order #: [id number] STANDING Prescriptions as of 08/26/2024 - iv contrast (will be provided with radiology test) MRI PANC/ALBERT Inject, intravenously, once for 1 dose. No IV access, insert saline lock prior to the beginning of sedation, infusion, injection of imaging exam. Discontinue saline lock post exam. If Pt. has a central line or IVAD, may access for administration according to line specific nursing protocol. Once exam is complete flush line and de-access according to line specific nursing protocol in the MR contrast administration guidelines link. - amLODIPine (NORVASC) 2.5 mg tablet Take 1 tablet by mouth once daily. Problem List As Of Date 08/25/2024 Noted Resolved Primary hypertension [I10] 08/30/2007 Mixed hyperlipidemia [E78.2] 09/02/2007 CALCULUS OF KIDNEY [N20.0] 10/05/2008 Tobacco use disorder [F17.200] 10/28/2008 12/25/2012 Renal cysts, acquired, bilateral [N28.1] 08/18/2024 Benign prostatic hyperplasia with nocturia [N40*08/18/2024 Bladder wall thickening [N32.89] 08/18/2024 History of kidney stones [Z87.442] 08/18/2024 Gross hematuria [R31.0] 08/18/2024 Family history of prostate cancer in father [Z8*08/19/2024 Prescriptions ordered this encounter Disp Refills Start End IV CONTRAST (RADIOLOGY PROCEDURE) - * 1 ea* 0 08/25/2024 08/26/2024 Class: In Office Sig: MRI PANC/ALBERT Inject, intravenously, once for 1 dose. No IV access, insert saline lock prior to the beginning of sedation, infusion, injection of imaging exam. Discontinue saline lock post exam. If Pt. has a central line or IVAD, may access for administration according to line specific nursing protocol. Once exam is complete flush line and de-access according to line specific nursing protocol in the MR contrast administration guidelines link. Encounter Status:Closed by KIERSTEN HERBERT on 08/26/24 Normal [facility] Hepatic function 2000 panelo n 08-25-2024 Albumin [Mass/Vol] 4.0 g/dL Normal 3.9-4.9 [facility] Comment on above: Order Comment: Speci men Type: BLOOD SPECIMENOrdering Facility: [facility] Address: [address] [place] [address] Performed By: #### 2 4325-3 ####[facility] [id number] [place] [address] [place] ALP [Catalytic activity/Vol] 436 U/L High 38-113 [facility] Comment on above: Order Comment: Speci men Type: BLOOD SPECIMENOrdering Facility: [facility] Address: [address] [place] [address] Performed By: #### 2 4325-3 ####[facility] [id number] [place] [address] [place] ALT [Catalytic activity/Vol] 261 U/L High 10-54 [facility] Comment on above: Order Comment: Speci men Type: BLOOD SPECIMENOrdering Facility: [facility] Address: [facility] [place] [id number] Performed By: #### 2 4325-3 ####[facility] [id number] [place] [address] [place] AST [Catalytic activity/Vol] 75 U/L High 14-40 [facility] Comment on above: Order Comment: Speci men Type: BLOOD SPECIMENOrdering Facility: [facility] Address: [address] [place], [place] [address] Performed By: #### 2 4325-3 ####[facility] [id number] [place] [address] [place] Bilirubin [Mass/Vol] 1.3 mg/dL Normal 0.2-1.3 [facility] Comment on above: Order Comment: Speci men Type: BLOOD SPECIMENOrdering Facility: [facility] Address: [address] [place], [place] [address] Performed By: #### 2 4325-3 ####[facility] [id number] [place] [address] [place] Bilirubin.conjugated [Mass/Vol] 0.7 mg/dL High <0.3 [facility] Comment on above: Order Comment: Speci men Type: BLOOD SPECIMENOrdering Facility: [facility] Address: [address] [place], [place] [address] Performed By: #### 2 4325-3 ####[facility] [id number] [place] [address] [place] Protein [Mass/Vol] 6.7 g/dL Normal 6.3-8.0 [facility] Comment on above: Order Comment: Speci men Type: BLOOD SPECIMENOrdering Facility: [facility] Address: [address] [place], [place] [address] Performed By: #### 2 4325-3 ####[facility] [id number] [place] [address] [place] CBC W/Diff, Automatedon 05-0 -2024 Absolute Lymph 0.78 X10 3/uL Low 0.83-4.51 [facility] Comment on above: Performed By: #### L 504.2610, L501.6710, L3300.1200, L3000.0375, L3400.1500, L800.1280, L3100.5440, L3410.2400, L500.4050, L803.2200, L300.3900, L101.9900, L3100.3425, L100.0100, L3100.5850 #### [facility] [address] [facility] [place], [place], [phone] ([phone]) Absolute Neut 5.5 X10 3/uL Normal 2.0-7.7 [facility] Comment on above: Performed By: #### L 504.2610, L501.6710, L3300.1200, L3000.0375, L3400.1500, L800.1280, L3100.5440, L3410.2400, L500.4050, L803.2200, L300.3900, L101.9900, L3100.3425, L100.0100, L3100.5850 #### [facility] [address] [facility]. [place], [place], [phone] Basophils/100 WBC (Bld) 0.5 % Normal 0-1 [facility] Comment on above: Performed By: #### L 504.2610, L501.6710, L3300.1200, L3000.0375, L3400.1500, L800.1280, L3100.5440, L3410.2400, L500.4050, L803.2200, L300.3900, L101.9900, L3100.3425, L100.0100, L3100.5850 #### [facility] [address] [place], [address] Eosinophils/100 WBC (Bld) 4.2 % Normal 0-5 [facility] Comment on above: Performed By: #### L 504.2610, L501.6710, L3300.1200, L3000.0375, L3400.1500, L800.1280, L3100.5440, L3410.2400, L500.4050, L803.2200, L300.3900, L101.9900, L3100.3425, L100.0100, L3100.5850 #### [facility] [address] [facility] [place], [address] ([phone]) Erythrocyte distribution width (RBC) [Ratio] 13.4 % Normal 11.6-14.6 [facility] Comment on above: Performed By: #### L 504.2610, L501.6710, L3300.1200, L3000.0375, L3400.1500, L800.1280, L3100.5440, L3410.2400, L500.4050, L803.2200, L300.3900, L101.9900, L3100.3425, L100.0100, L3100.5850 #### [facility] [address] [facility] [place], [address] ([phone]) Hematocrit (Bld) [Volume fraction] 45.1 % Normal 40-54 [facility] Comment on above: Performed By: #### L 504.2610, L501.6710, L3300.1200, L3000.0375, L3400.1500, L800.1280, L3100.5440, L3410.2400, L500.4050, L803.2200, L300.3900, L101.9900, L3100.3425, L100.0100, L3100.5850 #### [facility] [address] [facility] [place], [address] [phone]) Hemoglobin (Bld) [Mass/Vol] 14.9 g/dL Normal 13.0-16.5 [facility] Comment on above: Performed By: #### L 504.2610, L501.6710, L3300.1200, L3000.0375, L3400.1500, L800.1280, L3100.5440, L3410.2400, L500.4050, L803.2200, L300.3900, L101.9900, L3100.3425, L100.0100, L3100.5850 #### [facility] [address] [place], [address] IG% 1.000 High 0.0-0.9 [facility] Comment on above: Result Comment: IG% - Immature Granulocytes (promyelocytes, myelocytes and metamyelocytes) > 1% indicates that a LEFT SHIFT is Present. Performed By: #### L 504.2610, L501.6710, L3300.1200, L3000.0375, L3400.1500, L800.1280, L3100.5440, L3410.2400, L500.4050, L803.2200, L300.3900, L101.9900, L3100.3425, L100.0100, L3100.5850 #### [facility] [address] [place], [address] Lymphocytes/100 WBC (Bld) 10.6 % Low 19-41 [facility] Comment on above: Performed By: #### L 504.2610, L501.6710, L3300.1200, L3000.0375, L3400.1500, L800.1280, L3100.5440, L3410.2400, L500.4050, L803.2200, L300.3900, L101.9900, L3100.3425, L100.0100, L3100.5850 #### [facility] [address] [place], [address] MCH (RBC) [Entitic mass] 32.3 pg High 27.0-32.0 [facility] Comment on above: Performed By: #### L 504.2610, L501.6710, L3300.1200, L3000.0375, L3400.1500, L800.1280, L3100.5440, L3410.2400, L500.4050, L803.2200, L300.3900, L101.9900, L3100.3425, L100.0100, L3100.5850 #### [facility] [address] [place], [place], [phone] ([phone]) MCHC (RBC) [Mass/Vol] 33.0 g/dL Normal 32-36 [facility] Comment on above: Performed By: #### L 504.2610, L501.6710, L3300.1200, L3000.0375, L3400.1500, L800.1280, L3100.5440, L3410.2400, L500.4050, L803.2200, L300.3900, L101.9900, L3100.3425, L100.0100, L3100.5850 #### [facility] [address] [place], [address] MCV (RBC) [Entitic vol] 97.6 fL High 80-94 [facility] Comment on above: Performed By: #### L 504.2610, L501.6710, L3300.1200, L3000.0375, L3400.1500, L800.1280, L3100.5440, L3410.2400, L500.4050, L803.2200, L300.3900, L101.9900, L3100.3425, L100.0100, L3100.5850 #### [facility] [address] [place], [address] Monocytes/100 WBC (Bld) 9.1 % Normal 0-10 [facility] Comment on above: Performed By: #### L 504.2610, L501.6710, L3300.1200, L3000.0375, L3400.1500, L800.1280, L3100.5440, L3410.2400, L500.4050, L803.2200, L300.3900, L101.9900, L3100.3425, L100.0100, L3100.5850 #### [facility] [address] [place], [address] Neutrophils/100 WBC (Bld) 74.6 % High 47-70 [facility] Comment on above: Performed By: #### L 504.2610, L501.6710, L3300.1200, L3000.0375, L3400.1500, L800.1280, L3100.5440, L3410.2400, L500.4050, L803.2200, L300.3900, L101.9900, L3100.3425, L100.0100, L3100.5850 #### [facility] [address] [place], [address] Nucleated RBC (Bld) [#/Vol] 0 10*3/uL Normal 0-5 [facility] Comment on above: Performed By: #### L 504.2610, L501.6710, L3300.1200, L3000.0375, L3400.1500, L800.1280, L3100.5440, L3410.2400, L500.4050, L803.2200, L300.3900, L101.9900, L3100.3425, L100.0100, L3100.5850 #### [facility] [address] [facility] [place], [address] Platelet mean volume (Bld) [Entitic vol] 10.3 fL Normal 6.2-12.0 [facility] Comment on above: Performed By: #### L 504.2610, L501.6710, L3300.1200, L3000.0375, L3400.1500, L800.1280, L3100.5440, L3410.2400, L500.4050, L803.2200, L300.3900, L101.9900, L3100.3425, L100.0100, L3100.5850 #### [facility] [address] [place], [place], [phone] Platelets (Bld) [#/Vol] 392 10*3/uL Normal 150-450 [facility] Comment on above: Performed By: #### L 504.2610, L501.6710, L3300.1200, L3000.0375, L3400.1500, L800.1280, L3100.5440, L3410.2400, L500.4050, L803.2200, L300.3900, L101.9900, L3100.3425, L100.0100, L3100.5850 #### [facility] [address] [place], [place], [id number] RBC (Bld) [#/Vol] 4.62 10*6/uL Normal 4.6-6.2 [facility] Comment on above: Performed By: #### L 504.2610, L501.6710, L3300.1200, L3000.0375, L3400.1500, L800.1280, L3100.5440, L3410.2400, L500.4050, L803.2200, L300.3900, L101.9900, L3100.3425, L100.0100, L3100.5850 #### [facility] [address] [place], [address] RDW SD 48.6 fl High 35.1-43.9 [facility] Comment on above: Performed By: #### L 504.2610, L501.6710, L3300.1200, L3000.0375, L3400.1500, L800.1280, L3100.5440, L3410.2400, L500.4050, L803.2200, L300.3900, L101.9900, L3100.3425, L100.0100, L3100.5850 #### [facility] [address] [place], [place], [phone] WBC (Bld) [#/Vol] 7.3 10*3/uL Normal 4.4-11.0 [facility] Comment on above: Performed By: #### L 504.2610, L501.6710, L3300.1200, L3000.0375, L3400.1500, L800.1280, L3100.5440, L3410.2400, L500.4050, L803.2200, L300.3900, L101.9900, L3100.3425, L100.0100, L3100.5850 #### [facility] [address] [place], [place], [phone] CRPon 08-21-2024 C-REACTIVE PROT < 3.00 Normal 0.0-3.0 [facility] Comment on above: Performed By: #### L 504.2610, L501.6710, L3300.1200, L3000.0375, L3400.1500, L800.1280, L3100.5440, L3410.2400, L500.4050, L803.2200, L300.3900, L101.9900, L3100.3425, L100.0100, L3100.5850 ####[facility] [address] [place], [place], [id number] Comprehensive Metabolic Prof ilon 08-21-2024 Albumin [Mass/Vol] 4.0 g/dL Normal 3.4-4.8 [facility] Comment on above: Performed By: #### L 504.2610, L501.6710, L3300.1200, L3000.0375, L3400.1500, L800.1280, L3100.5440, L3410.2400, L500.4050, L803.2200, L300.3900, L101.9900, L3100.3425, L100.0100, L3100.5850 ####[facility] [address] [place], [place], [id number] Albumin/Globulin [Mass ratio] 1.4 {ratio} Normal 0.9-2.4 [facility] Comment on above: Performed By: #### L 504.2610, L501.6710, L3300.1200, L3000.0375, L3400.1500, L800.1280, L3100.5440, L3410.2400, L500.4050, L803.2200, L300.3900, L101.9900, L3100.3425, L100.0100, L3100.5850 ####[facility] [address] [place], [address] ALK PHOS 440 U/L High 40-129 [facility] Comment on above: Performed By: #### L 504.2610, L501.6710, L3300.1200, L3000.0375, L3400.1500, L800.1280, L3100.5440, L3410.2400, L500.4050, L803.2200, L300.3900, L101.9900, L3100.3425, L100.0100, L3100.5850 ####[facility] [address] [place], [place], [phone] ALT [Catalytic activity/Vol] 498 U/L High <=46 [facility] Comment on above: Performed By: #### L 504.2610, L501.6710, L3300.1200, L3000.0375, L3400.1500, L800.1280, L3100.5440, L3410.2400, L500.4050, L803.2200, L300.3900, L101.9900, L3100.3425, L100.0100, L3100.5850 ####[facility] [address] [place], [place], [id number] AST [Catalytic activity/Vol] 131 U/L High <=37 [facility] Comment on above: Performed By: #### L 504.2610, L501.6710, L3300.1200, L3000.0375, L3400.1500, L800.1280, L3100.5440, L3410.2400, L500.4050, L803.2200, L300.3900, L101.9900, L3100.3425, L100.0100, L3100.5850 ####[facility] [address] [place], [place], [phone](345) Bilirubin [Mass/Vol] 1.33 mg/dL High 0.00-1.30 [facility] Comment on above: Performed By: #### L 504.2610, L501.6710, L3300.1200, L3000.0375, L3400.1500, L800.1280, L3100.5440, L3410.2400, L500.4050, L803.2200, L300.3900, L101.9900, L3100.3425, L100.0100, L3100.5850 ####[facility] [address] [place], [place], [phone]([phone]) BUN/CRE 14.6 RATIO Normal 10-20 [facility] Comment on above: Performed By: #### L 504.2610, L501.6710, L3300.1200, L3000.0375, L3400.1500, L800.1280, L3100.5440, L3410.2400, L500.4050, L803.2200, L300.3900, L101.9900, L3100.3425, L100.0100, L3100.5850 ####[facility] [address] [place], [place], [phone](663) Calcium [Mass/Vol] 9.3 mg/dL Normal 7.6-11.0 [facility] Comment on above: Performed By: #### L 504.2610, L501.6710, L3300.1200, L3000.0375, L3400.1500, L800.1280, L3100.5440, L3410.2400, L500.4050, L803.2200, L300.3900, L101.9900, L3100.3425, L100.0100, L3100.5850 ####[facility] [address] [facility] [place], [place], [phone] Chloride [Moles/Vol] 104 mmol/L Normal 98-108 [facility] Comment on above: Performed By: #### L 504.2610, L501.6710, L3300.1200, L3000.0375, L3400.1500, L800.1280, L3100.5440, L3410.2400, L500.4050, L803.2200, L300.3900, L101.9900, L3100.3425, L100.0100, L3100.5850 ####[facility] [address] [place], [place], [id number] CO2 [Moles/Vol] 21.5 mmol/L Normal 21.0-32.0 [facility] Comment on above: Performed By: #### L 504.2610, L501.6710, L3300.1200, L3000.0375, L3400.1500, L800.1280, L3100.5440, L3410.2400, L500.4050, L803.2200, L300.3900, L101.9900, L3100.3425, L100.0100, L3100.5850 ####[facility] [id number] [facility]. [place], [place], [id number] Creatinine [Mass/Vol] 0.99 mg/dL Normal 0.70-1.20 [facility] Comment on above: Performed By: #### L 504.2610, L501.6710, L3300.1200, L3000.0375, L3400.1500, L800.1280, L3100.5440, L3410.2400, L500.4050, L803.2200, L300.3900, L101.9900, L3100.3425, L100.0100, L3100.5850 ####[facility] [id number] [place], [place], [id number] GAP 12 Normal 5-15 [facility] Comment on above: Performed By: #### L 504.2610, L501.6710, L3300.1200, L3000.0375, L3400.1500, L800.1280, L3100.5440, L3410.2400, L500.4050, L803.2200, L300.3900, L101.9900, L3100.3425, L100.0100, L3100.5850 ####[facility] [id number] [facility] [place], [address] GFR/1.73 sq M.predicted among non-blacks MDRD (S/P/Bld) [Vol rate/Area] 82 mL/min/{1.73_m2} Normal >60 [facility] Comment on above: Result Comment: mL/m in/1.73m2 CKD-EPI Creatinine Equation (2020) Performed By: #### L 504.2610, L501.6710, L3300.1200, L3000.0375, L3400.1500, L800.1280, L3100.5440, L3410.2400, L500.4050, L803.2200, L300.3900, L101.9900, L3100.3425, L100.0100, L3100.5850 ####[facility] [address] [place], [place], [id number] Globulin (S) [Mass/Vol] 2.9 g/dL Normal 2.2-4.2 [facility] Comment on above: Performed By: #### L 504.2610, L501.6710, L3300.1200, L3000.0375, L3400.1500, L800.1280, L3100.5440, L3410.2400, L500.4050, L803.2200, L300.3900, L101.9900, L3100.3425, L100.0100, L3100.5850 ####[facility] [address] [place], [address] Glucose [Mass/Vol] 96 mg/dL Normal 70-99 [facility] Comment on above: Performed By: #### L 504.2610, L501.6710, L3300.1200, L3000.0375, L3400.1500, L800.1280, L3100.5440, L3410.2400, L500.4050, L803.2200, L300.3900, L101.9900, L3100.3425, L100.0100, L3100.5850 ####[facility] [address] [place], [address] Potassium [Moles/Vol] 4.3 mmol/L Normal 3.3-5.1 [facility] Comment on above: Performed By: #### L 504.2610, L501.6710, L3300.1200, L3000.0375, L3400.1500, L800.1280, L3100.5440, L3410.2400, L500.4050, L803.2200, L300.3900, L101.9900, L3100.3425, L100.0100, L3100.5850 ####[facility] [address] [place], [address] Sodium [Moles/Vol] 137 mmol/L Normal 133-145 [facility] Comment on above: Performed By: #### L 504.2610, L501.6710, L3300.1200, L3000.0375, L3400.1500, L800.1280, L3100.5440, L3410.2400, L500.4050, L803.2200, L300.3900, L101.9900, L3100.3425, L100.0100, L3100.5850 ####[facility] [address] [place], [address] T PROT 6.9 g/dL Normal 5.9-8.4 [facility] Comment on above: Performed By: #### L 504.2610, L501.6710, L3300.1200, L3000.0375, L3400.1500, L800.1280, L3100.5440, L3410.2400, L500.4050, L803.2200, L300.3900, L101.9900, L3100.3425, L100.0100, L3100.5850 ####[facility] [address] [place], [place], [address] Urea nitrogen [Mass/Vol] 14 mg/dL Normal 4-19 [facility] Comment on above: Performed By: #### L 504.2610, L501.6710, L3300.1200, L3000.0375, L3400.1500, L800.1280, L3100.5440, L3410.2400, L500.4050, L803.2200, L300.3900, L101.9900, L3100.3425, L100.0100, L3100.5850 ####[facility] [address] [place], [place], [phone] Erythrocyte Sed Rateon 08-21 SED RATE 16 mm/hr Normal 0-20 [facility] Comment on above: Performed By: #### L 504.2610, L501.6710, L3300.1200, L3000.0375, L3400.1500, L800.1280, L3100.5440, L3410.2400, L500.4050, L803.2200, L300.3900, L101.9900, L3100.3425, L100.0100, L3100.5850 ####[facility] [address] [place], [place], [phone] Gastroenterology Visit Repor ton 08-21-2024 Gastroenterology Visit Report [facility]enter[facility] [address] [place] [address] OFFICE VISIT Date of Service: 08/21/24 MR#: [id number] Acct: [id number] Name: CHLOÉ GUTIERREZ Rep #: [id number] : 1955 Provider: David Garibay DO Age/Sex: 69/M Location: [facility] Status: Signed Intake Vital Signs 08/16/24 10:24 Height 5 ft 3 in Intake Visit Reasons: ER F/U. Blood in Urine Allergies No Known Allergies Allergy (Verified 08/16/24 10:24) Have you fallen in the past year?: No PFSH Medical History (Updated 08/24/24 @ 00:00 by Jay Collado) Kidney stones HTN (hypertension) Surgical History (Updated 08/16/24 @ 10:47 by Beatriz Redman) H/O hernia repair Social History Smoking Status: Never smoker HPI HPI Details: CHLOÉ GUTIERREZ, is a 69 M who presents to the office today for ER follow up. [facility] ED 08.16.24 pt presents for yellowing of skin and work-up of cyst on liver. Pt also notes blood in urine. Endorses 1-2 beers per day. abd US 4..25 Moderate right hydronephrosis. No evidence of acute cholecystitis. *BGI established 5.1.25 pt reports that he is here for his ER follow up. States that he has occasional indigestion and difficulty swallowing. Pt reports that he is on a medication for his blood pressure but is unsure which one it is. ROS Const Constitutional: No fatigue, fever(s) or weight change ENT ENT: Positive for difficulty swallowing Gastro GI: Positive for bloating, heartburn, difficulty swallowing and excessive flatus; No abdominal pain, belching, change in bowel habits, change in stool character, coffee ground emesis, constipation, cramping, diarrhea, feeling full early, incontinent of stools, Vomiting blood/hematemesis, Blood in stool, loose stools, Black,tarry stools, nausea/dyspepsia, pain with swallowing, vomiting or other Musc Musculoskeletal: No joint pain Skin Skin: No yellowing of the eye or itchy eyes Psych Psychiatric: Positive for anxiety and No depression Endo Endocrine: No fatigue or weight change Aller/Imm Allergy/Immunologic: No itchy eyes Cody/Lymp Hematologic/Lymphatic: No easy bleeding or easy bruising Assessment and Plan Assessment and Plan (1) Hyperbilirubinemia: Status: Inactive (2) Transaminitis: Status: Inactive Plan: 69-year-old male with a past medical history of hypertension, kidney stones, drinks 1-2 beers daily who presented to the emergency department with the concern that he may be turning yellow. Patient states that he is currently getting worked up for some cyst on his liver and potentially had some blood in his urine. Patient states that his son noticed that he may have a yellow tint to his eyes and he talk to his doctor advised he come here for further evaluation management. Patient denies abdominal pain. - WBC-7.3, hemoglobin 14.4, platelet count 392 Sodium-137, chloride 104-, potassium 4.3, bicarbonate 23.6, BUN 14, creatinine 0.9, glucose 109 Bilirubin 3.23 down to 1.3, alkaline phosphatase 385 up to 440, AST 360 down to 131, ALT 440 up to 487, total protein 6.9, albumin of 4.0 U/S on 08/21/24: FINDINGS: LIVER: Liver measures up to 15.5 cm. No intrahepatic bile duct dilation. GALLBLADDER: Negative Reeder's sign was reported by the casting director. No gallstones. COMMON BILE DUCT: Unremarkable as visualized. No stones. No dilation. Common bile duct measures 0.4 cm in diameter. PANCREAS: Pancreas not clearly visualized. RIGHT KIDNEY: Moderate right hydronephrosis. No stones. The right kidney measures 10.6 x 5.3 x 5.5 cm. One of the ER GENERAL ADJUSTER's reached out to the on-call general surgeon who was attempting to obtain a CT scan that he obtained per the patient at [facility] yesterday however according to them ultimately there was no CT scan obtained. Dr. Moyer stated that the patient can follow-up closely with the primary care physician as well as gastroenterology. He still is not having any pain. Differential diagnosis for cholestatic hepatitis and him would be medication induced injury, infiltrative disease of the liver including steatosis from alcohol, amyloidosis, sarcoidosis, he mochromatosis. Autoimmune primary biliary cirrhosis, primary sclerosing cholangitis, autoimmune hepatitis, IgG associated cholangiopathy disease. We will order blood work, MRCP and repeat his biochemical analysis in about 3 to 5 days. He was told to stay away from Tylenol products and alcohol. He is okay with this plan. Orders: Orders Anti-Smooth Muscle ABS 08/21/24 E80.6 - Other disorders of bilirubin metabolism, R74.01 - Elevation of levels of liver transaminase levels Anti-Mitochondrial AB 08/21/24 E80.6 - Other disorders of bilirubin metabolism, R74.01 - Elevation of levels of liver transaminase levels LDH 08/21/24 E80.6 - Other disorders of bilirubin metabolism, R74.01 - E (more content not included)... Normal [facility] LDHon 08-21-2024 LDH 166 U/L Normal 87-241 [facility] Comment on above: Order Comment: 1 Performed By: #### L 504.2610, L501.6710, L3300.1200, L3000.0375, L3400.1500, L800.1280, L3100.5440, L3410.2400, L500.4050, L803.2200, L300.3900, L101.9900, L3100.3425, L100.0100, L3100.5850 ####[facility] [address] [place], [place], [phone] Prothrombin Time w/INRon INR Coag (PPP) [Relative time] 0.9 {INR} Normal [facility] Comment on above: Performed By: #### L 504.2610, L501.6710, L3300.1200, L3000.0375, L3400.1500, L800.1280, L3100.5440, L3410.2400, L500.4050, L803.2200, L300.3900, L101.9900, L3100.3425, L100.0100, L3100.5850 ####[facility] [address] [place], [address] PT Coag (PPP) [Time] 12.8 s Normal 11.7-14.9 [facility] Comment on above: Performed By: #### L 504.2610, L501.6710, L3300.1200, L3000.0375, L3400.1500, L800.1280, L3100.5440, L3410.2400, L500.4050, L803.2200, L300.3900, L101.9900, L3100.3425, L100.0100, L3100.5850 ####[facility] [address] [place], [address] BLADDER SCANon 08-19-2024 PVR- 4mL [facility] Bacteria Ur Culton Bacteria identified Cx Nom (U) CULTURE, URINE: <10,000 CFU/ml Normal Urogenital Hany Normal [facility] Comment on above: Performed By: #### 6 30-4 ####[facility] LABORATORYCLIA [id number] [address] OF [facility] CNOVon 08-19-2024 CNOV Office Visit (URCANT ) -- CHLOÉ GUTIERREZ ([id number]) 1955 M Date Time Provider Department 08/19/24 9:00 AM HOLLY JORGE During your visit today, we recorded the following information about you: Blood pressure Weight Height 146/83 71.2 kg 1.6 m Holly Jorge MD 08/19/2024 9:27 AM Signed [facility] NEW PATIENT CONSULT/HISTORY AND PHYSICAL PATIENT: Chloé Torre Gutierrez (69 year old) REFERRING PROVIDER: Awilda Mattson PCP: Mateo Ayala MD DATE OF SERVICE: 08/19/2024 Consultation requested by Awilda Mattson for an opinion regarding Chloéguerrero Gutierrez. My final recommendations will be communicated back to the requesting physician by way of shared Medical record or letter to requesting physician. -- Assessment AND Plan Gross hematuria Prior painless gross hematuria UA today negative CT reviewed Obtain culture, cytology, PSA, cystoscopy Orders: CONSULT TO UROLOGY UA DIP, URINE (POC) BLADDER SCAN PROSTATE-SPECIFIC ANTIGEN DIAGNOSTIC; Future BACTERIAL CULTURE, URINE CYTOLOGY NON-GEL COATER Bladder wall thickening Seen by Ct Plan cystoscopy Benign prostatic hyperplasia with nocturia Mild nocturia Prostate enlargement seen by CT Family history prostate cancer Obtain PSA Orders: PROSTATE-SPECIFIC ANTIGEN DIAGNOSTIC; Future Renal cysts, acquired, bilateral Benign appearing History of kidney stones Prior lithotripsy No stones seen on current CT Family history of prostate cancer in father Calculus of kidney Family history of renal cancer -- FOLLOW UP: Return for cystoscopy. -- SUMMARY: Mr. Gutierrez is a 69 year old male who presents as a new consultation for: CHIEF COMPLAINT: Patient presents with: Consult: Consult 08/16/24. Gross Hematuria. Patient has seen blood in his urine. HISTORY OF PRESENT ILLNESS: The patient reports an acute onset of hematuria, first noticed on Sunday after a weekend trip to [place]. He observed red discoloration in his urine for three consecutive days. He sought evaluation at an urgent care facility, where a urinalysis revealed trace hematuria. Upon returning home, his primary care provider ordered blood and urine tests, which reportedly suggested a possible hepatic blockage. A subsequent CT scan was performed. Following these events, the patient presented to the [place] ER due to concerns about potential jaundice. He was admitted for observation and underwent an ultrasound, as well as additional blood and urine tests. He denies any symptoms consistent with nephrolithiasis during this episode. The patient has a history of nephrolithiasis, with one episode requiring lithotripsy. He also has a family history of malignancies, including colon cancer in his mother and prostate cancer in his father, who was successfully treated. He mentions a twin brother who was diagnosed with renal cancer following an evaluation for a small bowel obstruction. The patient recently underwent hernia repair on 07/16, which he reports has healed well. He consumes 1-2 beers daily but has decided to abstain from alcohol following this recent health scare. I personally reviewed the past medical records received from the referring provider. REVIEW OF SYSTEMS: Genitourinary: Denies current hematuria, dysuria, frequency, urgency, nocturia, JEAN-CLAUDE, weak stream. Constitutional: unintentional weight loss - denies, fevers - denies Cardiovascular: new or worsening chest pain - denies Respiratory: new or worsening shortness of breath - denies Gastrointestinal: constipation - denies, vomiting - denies Hematologic/Lymphatic: easy bleeding or bruising - denies ALLERGIES: ALLERGIES Allergen Reactions Seasonal Allergies Other: See Comments MEDICATIONS: amLODIPine (NORVASC) 2.5 mg tablet Take 1 tablet by mouth once daily. PAST HISTORY: PAST MEDICAL HISTORY Diagnosis Date Diverticulosis of colon (without mention of hemorrhage) H/O lithotripsy 01/07/2014 EXTRACORPOREAL SHOCKWAVE LITHOTRIPSY Hypertension, unspecified type Internal hemorrhoids without mention of complication Macular degeneration Wet in right eye, Dx in both for maculaar degeneration Other and unspecified hyperlipidemia 09/02/2007 LDL 160, HDL 58, TG 68 in 5-08: consider meds if not successful with wt loss at follow up PAST SURGICAL HISTORY Procedure Laterality Date COLONOSCOPY FLX DX W/COLLJ SPEC WHEN PFRMD 02/24/2009 LAPROSCOPIC REPAIR UMBILICAL HERNIA Left 07/16/2024 LIT (more content not included)... [facility] CYTOLOGY NON-GYNon 5 AP DISCLAIMER [facility] Comment on above: Order Comment: Speci men Type: URINE SPECIMENOrdering Facility: [facility] Address: [address] [place] [address] Result Comment: Lakisha muhammad Developed Test (LDT) Disclaimer: Performance characteristics of immunohistochemical, immunofluorescent, and chromogenic in-situ hybridization tests have been determined by the performing laboratory within [facility] Pathology and Laboratory Medicine Department ([facility], [facility], [facility], [facility], Count Includes [facility], or [facility]) in a manner consistent with CLIA requirements. One or more of these tests may not have been cleared or approved by the FDA. RT-PLM is regulated under CLIA as qualified to perform high-complexity testing. These tests are used for clinical purposes. These should not be regarded as investigational or for research. Positive and negative controls stain appropriately. Performed By: #### C YTONON ####[facility] LABORATORYCLIA [id number] [place] [address] [place] CASE REPORT [facility] Comment on above: Order Comment: Speci men Type: URINE SPECIMENOrdering Facility: [facility] Address: [address] [place] [address] Result Comment: [facility] Cytology Report Case: [id number] Authorizing Provider: Holly Jorge MD Collected: 08/19/2024 10:10 AM Ordering Location: Urology Received: 08/20/2024 08:15 AM Pathologist: Nery Zayas MD Specimen: Urine, Voided Performed By: #### C YTONON ####[facility] LABORATORYCLIA [id number] [place] [address] [place] CLINICAL HISTORY Bladder cancer Normal [facility] Comment on above: Order Comment: Speci men Type: URINE SPECIMENOrdering Facility: [facility] Address: [address] [place] [address] Performed By: #### C YTONON ####[facility] LABORATORYCLIA [id number] [address] FINAL DIAGNOSIS [facility] Comment on above: Order Comment: Speci men Type: URINE SPECIMENOrdering Facility: [facility] Address: [address] [place] [address] Result Comment: A - Urine, Voided Negative for high-grade urothelial carcinoma. at 1707 EDT Performed By: #### C YTONON ####[facility] LABORATORYCLIA [id number] [address] OF [facility] FINAL PERFORMING LAB [facility] Comment on above: Order Comment: Speci men Type: URINE SPECIMENOrdering Facility: [facility] Address: [address] [place] [address] Result Comment: Tech nical component, high heel builder screening performed at: [facility], [address] [place] [address] CLIA: [id number] Diagnostic interpretation performed at: [facility], [address] [place] [address] CLIA# [id number] Door Frame Builder: Jenna Simmons MD Performed By: #### C YTONON ####[facility] LABORATORYCLIA [id number] [address] [place] GROSS DESCRIPTION [facility] Comment on above: Order Comment: Speci men Type: URINE SPECIMENOrdering Facility: [facility] Address: [address] [place] [address] Result Comment: A. U rine, Voided 10 cc hazy ulices fluid with scant particles. ThinPrep prepared. Performed By: #### C YTONON ####[facility] LABORATORYCLIA [id number] [place] [address] [place] PSA [facility] 08-19-2024 Prostate specific Ag [Mass/Vol] 7.73 ng/mL High <2.60 [facility] Comment on above: Order Comment: Speci men Type: BLOOD SPECIMENOrdering Facility: [facility] Address: [address] [place] [address] Result Comment: Efren walsh PSA test methodology used is the Electrochemiluminescence Immunoassay by [employer]. Total PSA values by differing methodologies cannot be interchanged. For an individual patient, the significance of a PSA level should be interpreted in a broad clinical context, including age, race, family history, digital rectal exam, prostate size, results of prior testing (prostate biopsy, free PSA, PCA3), and use of 5-alpha reductase inhibitors. Considering the high incidence of asymptomatic cancer in the general population that may not pose an ultimate risk to a patient, the decision to recommend urological evaluation or prostate biopsy should be individualized after consideration of all these factors. REFERENCE: Delores Maxwell M.D., M.P.H., Terrence Rabago M.D., Ph.D., Trino Mcnamara M.D., Audrey Hickman, M.P.H., Jeanette Curtis Sc.D. Effect of Verification Bias on Screening for Prostate Cancer by Measurement of Prostatic Specific Antigen. N Engl J Med 2003,349:335-42. Performed By: #### 2 857-1 ####[facility] LABCLIA [id number] [place] [address] [place] UA DIP, URINE (POC)on 2024 BILIRUBIN UA (POCT) Small Abnormal Negative [facility] CLARITY UA (POCT) Clear [facility] COLOR UA (POCT) Yellow [facility] GLUCOSE UA (POCT) 100 mg/dL Abnormal Negative [facility] Hemoglobin Ql (U) Negative Negative [facility] Interpretation and review of laboratory results Abnormal [facility] KETONE UA (POCT) Trace Negative mg/dL [facility] LEUKOCYTES UA (POCT) Negative Negative [facility] NITRITE UA (POCT) Negative Negative [facility] PH UA (POCT) 5.5 4.5 - 8.0 [facility] Protein Ql (U) 100 mg/dL Abnormal Negative [facility] SPECIFIC GRAVITY UA (POCT) 1.025 1.005 - 1.030 [facility] UROBILINOGEN UA (POCT) 2 Abnormal Marybeth l E.U./dL [facility] Location:[facility], [address] [place] [address], [address] [facility] CARE [facility] Hepatic function 2000 panelo n 08-18-2024 Albumin [Mass/Vol] 4.3 g/dL Normal 3.9-4.9 [facility] Comment on above: Order Comment: Speci men Type: BLOOD SPECIMENOrdering Facility: [facility] Address: [address] [place] [address] Performed By: #### 2 4325-3 ####[facility] LABCLIA [id number] [place] [address] [place] ALP [Catalytic activity/Vol] 417 U/L High 38-113 [facility] Comment on above: Order Comment: Speci men Type: BLOOD SPECIMENOrdering Facility: [facility] Address: [address] [place] [address] Performed By: #### 2 4325-3 ####[facility] LABCLIA [id number] [place] [id number] [place] ALT [Catalytic activity/Vol] 676 U/L High 10-54 [facility] Comment on above: Order Comment: Speci men Type: BLOOD SPECIMENOrdering Facility: [facility] Address: [address] [place] [address] Performed By: #### 2 4325-3 ####[facility] LABCLIA [id number] [address] [address] [place] AST [Catalytic activity/Vol] 215 U/L High 14-40 [facility] Comment on above: Order Comment: Speci men Type: BLOOD SPECIMENOrdering Facility: [facility] Address: [address] [place], [place] [address] Performed By: #### 2 4325-3 ####[facility] LABCLIA [id number] [place] [address] [place] Bilirubin [Mass/Vol] 1.7 mg/dL High 0.2-1.3 [facility] Comment on above: Order Comment: Speci men Type: BLOOD SPECIMENOrdering Facility: [facility] Address: [address] [place] [address] Performed By: #### 2 4325-3 ####[facility] LABIA [id number] [place] [address] [place] Bilirubin.conjugated [Mass/Vol] 1.2 mg/dL High <0.3 [facility] Comment on above: Order Comment: Speci men Type: BLOOD SPECIMENOrdering Facility: [facility] Address: [address] [place] [address] Performed By: #### 2 4325-3 ####[facility] [id number] [place] [address] [place] Protein [Mass/Vol] 7.2 g/dL Normal 6.3-8.0 [facility] Comment on above: Order Comment: Speci men Type: BLOOD SPECIMENOrdering Facility: [facility] Address: [address] [place] [address] Performed By: #### 2 4325-3 ####[facility] LABIA [id number] [place] [address] [place] Mitochondria Ab IF Ql (S)on 08-18-2024 Mitochondria M2 Ab IA Qn (S) 6.9 Units Normal <=20.0 [facility] Comment on above: Order Comment: Speci men Type: BLOOD SPECIMENOrdering Facility: [facility] Address: [address] [place] [address] Performed By: #### 1 4252-1, 29990-3 ####[facility] LABIA [id number] [place] [address] [place] Mitochondria M2 Ab Ql (S) Negative Normal Negative [facility] Comment on above: Order Comment: Speci men Type: BLOOD SPECIMENOrdering Facility: [facility] Address: [address] [place] [address] Result Comment: Anti -mitochondrial antibody test is used as an aid in diagnosis of primary biliary cholangitis. Clinical correlation is required. Performed By: #### 1 4252-1, 15283-1 ####[facility] LABCLIA [id number] [place] [address] [place] Smooth muscle Ab Ql (S)on ACTIN SMOOTH MUSCLE IGG QUALITATIVE Negative Normal Negative [facility] Comment on above: Order Comment: Speci men Type: BLOOD SPECIMENOrdering Facility: [facility] Address: [address] [place] [address] Performed By: #### 1 4252-1, 74350-3 ####[facility] LABCLIA [id number] [address] OF [facility] ACTIN SMOOTH MUSCLE IGG QUANTITATIVE 3 Units Normal <20 [facility] Comment on above: Order Comment: Speci evert Type: BLOOD SPECIMENOrdering Facility: [facility] Address: [address] [place] [address] Performed By: #### 1 [id number], 93891-9 ####[facility] LABCLIA [id number] [address] [place] Abdomen Limitedon 08-16-2024 Abdomen Limited [facility] Imaging Services [address] [place] [address] Abdomen Limited MR#: [id number] Acct: [id number] Name: CHLOÉ GUTIERREZ Rep #: [id number] : 1955 M 69 From: Rudy Mccollum MD PCP: Awilda Mattson, GENERAL ADJUSTER-Juan C Status: REG ER Study: Abdomen Limited Date of Exam: 08/16/24 Exam# [id number] Ordering Dr: Jesus Ovalle DO EXAM: US Abdomen Limited, Right Upper Quadrant CLINICAL INDICATION: TRANSAMINITIS, ELEVATED BILIRUBIN TECHNIQUE: Real-time ultrasound of the right upper quadrant with image documentation. COMPARISON: No relevant prior studies available. FINDINGS: LIVER: Liver measures up to 15.5 cm. No intrahepatic bile duct dilation. GALLBLADDER: Negative Reeder's sign was reported by the casting director. No gallstones. COMMON BILE DUCT: Unremarkable as visualized. No stones. No dilation. Common bile duct measures 0.4 cm in diameter. PANCREAS: Pancreas not clearly visualized. RIGHT KIDNEY: Moderate right hydronephrosis. No stones. The right kidney measures 10.6 x 5.3 x 5.5 cm. US/Abdomen Limited IMPRESSION: Moderate right hydronephrosis. No evidence of acute cholecystitis. Reading Location: [facility] CC: SHANNAN Mattosn; Dr. Jesus Ovalle DO Dog Barber: Signed Normal [facility] Absolute neutrophil countOrd ered By: Wade Murphy on 08-16-2024 Neutrophils (Bld) [#/Vol] 5.7 10*3/uL 2.0-7.7 [facility] Anion gap in Serum or Plasma Ordered By: Wade Murphy on 08-16-2024 Anion gap [Moles/Vol] 12 mmol/L 09-04 [facility] BUN/creatinine ratioOrdered By: Wade Murphy on 08-16-2024 Urea nitrogen/Creatinine [Mass ratio] 19.0 mg/mg - [facility] Basic Metabolic Profile (BMP )on 08-16-2024 BUN/CRE 19.0 RATIO Normal 02-09 [facility] Comment on above: Performed By: #### L 500.2500, L500.3400, L100.0100, L501.2450 #### [facility] [address] [place], [place], [id number] Calcium [Mass/Vol] 9.6 mg/dL Normal 7.6-11.0 [facility] Comment on above: Performed By: #### L 500.2500, L500.3400, L100.0100, L501.2450 #### [facility] [address] [place], [address] Chloride [Moles/Vol] 104 mmol/L Normal 98-108 [facility] Comment on above: Performed By: #### L 500.2500, L500.3400, L100.0100, L501.2450 #### [facility] [address] [place], [address] CO2 [Moles/Vol] 23.6 mmol/L Normal 21.0-32.0 [facility] Comment on above: Performed By: #### L 500.2500, L500.3400, L100.0100, L501.2450 #### [facility] [address] [place], [address] Creatinine [Mass/Vol] 1.06 mg/dL Normal 0.70-1.20 [facility] Comment on above: Performed By: #### L 500.2500, L500.3400, L100.0100, L501.2450 #### [facility] [address] [place], [address] ECRCL 57.79 ml/min Normal 50-250 [facility] Comment on above: Performed By: #### L 500.2500, L500.3400, L100.0100, L501.2450 #### [facility] [address] [place], [address] GAP 12 Normal 5-15 [facility] Comment on above: Performed By: #### L 500.2500, L500.3400, L100.0100, L501.2450 #### [facility] [address] [place], [address] GFR/1.73 sq M.predicted among non-blacks MDRD (S/P/Bld) [Vol rate/Area] 75 mL/min/{1.73_m2} Normal >60 [facility] Comment on above: Result Comment: mL/m in/1.73m2 CKD-EPI Creatinine Equation (2020) Performed By: #### L 500.2500, L500.3400, L100.0100, L501.2450 #### [facility] [address] [place], [address] Glucose [Mass/Vol] 101 mg/dL High 70-99 [facility] Comment on above: Performed By: #### L 500.2500, L500.3400, L100.0100, L501.2450 #### [facility] [address] [place], [address] Potassium [Moles/Vol] 4.0 mmol/L Normal 3.3-5.1 [facility] Comment on above: Performed By: #### L 500.2500, L500.3400, L100.0100, L501.2450 #### [facility] [address] [place], [address] Sodium [Moles/Vol] 139 mmol/L Normal 133-145 [facility] Comment on above: Performed By: #### L 500.2500, L500.3400, L100.0100, L501.2450 #### [facility] [address] [place], [address] Urea nitrogen [Mass/Vol] 20 mg/dL High 4-19 [facility] Comment on above: Performed By: #### L 500.2500, L500.3400, L100.0100, L501.2450 #### [facility] [address] [place], [address] Basophil percentageOrdered B y: Wade Murphy on 08-16-2024 Basophils/100 WBC (Bld) 0.5 % 0-1 [facility] Bilirubin Test strip Ql (U)O rdered By: Wade Murphy on 08-16-2024 Bilirubin Ql (U) 1 mg/dL High Negative [facility] Comment on above: COLOR OF URINE MAY A FFECT DIPSTICK RESULTS. Bilirubin directOrdered By: Wade Murphy on 08-16-2024 Bilirubin.direct [Mass/Vol] 2.28 mg/dL High 0.00-0.30 [facility] Bilirubin, totalOrdered By: Wade Murphy on 08-16-2024 Bilirubin [Mass/Vol] 3.23 mg/dL High 0.00-1.30 [facility] CBC W/Diff, Automatedon 07-23 Absolute Lymph 0.94 X10 3/uL Normal 0.83-4.51 [facility] Comment on above: Performed By: #### L 500.2500, L500.3400, L100.0100, L501.2450 #### [facility] [address] [place], [address] Absolute Neut 5.7 X10 3/uL Normal 2.0-7.7 [facility] Comment on above: Performed By: #### L 500.2500, L500.3400, L100.0100, L501.2450 #### [facility] [address] [place], [address] Basophils/100 WBC (Bld) 0.5 % Normal 0-1 [facility] Comment on above: Performed By: #### L 500.2500, L500.3400, L100.0100, L501.2450 #### [facility] [address] [place], [address] Eosinophils/100 WBC (Bld) 3.6 % Normal 0-5 [facility] Comment on above: Performed By: #### L 500.2500, L500.3400, L100.0100, L501.2450 #### [facility] [address] [place], [address] Erythrocyte distribution width (RBC) [Ratio] 13.3 % Normal 11.6-14.6 [facility] Comment on above: Performed By: #### L 500.2500, L500.3400, L100.0100, L501.2450 #### [facility] [address] [place], [address] Hematocrit (Bld) [Volume fraction] 45.2 % Normal 40-54 [facility] Comment on above: Performed By: #### L 500.2500, L500.3400, L100.0100, L501.2450 #### [facility] [address] [place], [address] Hemoglobin (Bld) [Mass/Vol] 15.3 g/dL Normal 13.0-16.5 [facility] Comment on above: Performed By: #### L 500.2500, L500.3400, L100.0100, L501.2450 #### [facility] [address] [place], [address] IG% 0.600 Normal 0.0-0.9 [facility] Comment on above: Result Comment: IG% - Immature Granulocytes (promyelocytes, myelocytes and metamyelocytes) > 1% indicates that a LEFT SHIFT is Present. Performed By: #### L 500.2500, L500.3400, L100.0100, L501.2450 #### [facility] [address] [place], [address] Lymphocytes/100 WBC (Bld) 12.1 % Low 19-41 [facility] Comment on above: Performed By: #### L 500.2500, L500.3400, L100.0100, L501.2450 #### [facility] [address] [place], [address] MCH (RBC) [Entitic mass] 32.7 pg High 27.0-32.0 [facility] Comment on above: Performed By: #### L 500.2500, L500.3400, L100.0100, L501.2450 #### [facility] [address] [place], [address] MCHC (RBC) [Mass/Vol] 33.8 g/dL Normal 32-36 [facility] Comment on above: Performed By: #### L 500.2500, L500.3400, L100.0100, L501.2450 #### [facility] [address] [place], [address] MCV (RBC) [Entitic vol] 96.6 fL High 80-94 [facility] Comment on above: Performed By: #### L 500.2500, L500.3400, L100.0100, L501.2450 #### [facility] [address] [place], [address] Monocytes/100 WBC (Bld) 10.4 % High 0-10 [facility] Comment on above: Performed By: #### L 500.2500, L500.3400, L100.0100, L501.2450 #### [facility] [address] [place], [address] Neutrophils/100 WBC (Bld) 72.8 % High 47-70 [facility] Comment on above: Performed By: #### L 500.2500, L500.3400, L100.0100, L501.2450 #### [facility] [address] [place], [address] Nucleated RBC (Bld) [#/Vol] 0 10*3/uL Normal 0-5 [facility] Comment on above: Performed By: #### L 500.2500, L500.3400, L100.0100, L501.2450 #### [facility] [address] [place], [address] Platelet mean volume (Bld) [Entitic vol] 9.7 fL Normal 6.2-12.0 [facility] Comment on above: Performed By: #### L 500.2500, L500.3400, L100.0100, L501.2450 #### [facility] [address] [place], [address] Platelets (Bld) [#/Vol] 271 10*3/uL Normal 150-450 [facility] Comment on above: Performed By: #### L 500.2500, L500.3400, L100.0100, L501.2450 #### [facility] [address] [place], [address] RBC (Bld) [#/Vol] 4.68 10*6/uL Normal 4.6-6.2 [facility] Comment on above: Performed By: #### L 500.2500, L500.3400, L100.0100, L501.2450 #### [facility] [address] [place], [address] RDW SD 47.5 fl High 35.1-43.9 [facility] Comment on above: Performed By: #### L 500.2500, L500.3400, L100.0100, L501.2450 #### [facility] [address] [place], [address] WBC (Bld) [#/Vol] 7.8 10*3/uL Normal 4.4-11.0 [facility] Comment on above: Performed By: #### L 500.2500, L500.3400, L100.0100, L501.2450 #### [facility] [address] [place], [address] Carbon dioxide, total [Moles /volume] in Central venous bloodOrdered By: Wade Murphy on 08-16-2024 CO2 [Moles/Vol] 23.6 mmol/L 21.0-32.0 [facility] Chloride assayOrdered By: Cameron Murphy on 08-16-2024 Chloride [Moles/Vol] 104 mmol/L 98-108 [facility] Emergency Department Summary on 08-16-2024 Emergency Department Summary [facility] Medical Records Department [address] [place] [address] Emergency Department Summary 08/16/24 MR#: [id number] Acct: [id number] Name: CHLOÉ GUTIERREZ Rep #: [id number] : 1955 69 From: Jesus Ovalle DO PCP: SHANNAN Carter Status:DEP ER Location: ED Patient was seen and examined with nurse practitioner Wade All components of the history and physical confirmed and agreed. History of present illness and physical exam: Patient is a 69-year-old male with a past medical history of hypertension, kidney stones, drinks 1-2 beers daily who presented to the emergency department with the concern that he may be turning yellow. Patient states that he is currently getting worked up for some cyst on his liver and potentially had some blood in his urine. Patient is poor historian cannot exactly describe the details overall. Patient states that his son noticed that he may have a yellow tint to his eyes and he talk to his doctor advised he come here for further evaluation management. Patient denies abdominal pain. Review of systems: Agree above Physical exam: Agree with above MDM Patient is a 69-year-old male who presents to the emergency department with a chief complaint of concern of jaundice. On the differential diagnose includes but limited to jaundice, cholecystitis, choledocholithiasis, pancreatitis. Once workup is obtained reviewed he will be reevaluated. Patient CBC was reviewed and showed no evidence of leukocytosis white blood cell normal 7.8, hemoglobin 15.3, platelet count was noted be 271. Patient sodium normal 139, potassium normal at 4, creatinine was 1.06. Patient's total bilirubin elevated 3.23, direct bilirubin elevated 2. To 8, AST and ALT were 303 and 896 respectively, lipase was normal at 37. Patient's urinalysis showed no evidence of infection. Patient's ultrasound of his right upper quadrant showed moderate right hydronephrosis no evidence of acute cholecystitis. Wade reached out to the on-call general surgeon who was attempting to obtain a CT scan that he obtained per the patient at [facility] yesterday however according to them ultimately there was no CT scan obtained. Dr. Moyer stated that the patient can follow-up closely with the primary care physician as well as gastroenterology. Patient was given referrals. He is encouraged return with worsening symptoms or any concerns. He is advised to have repeat blood work obtained at the beginning of next week as well. He is agreeable this plan all question concerns answered he is discharged home in stable condition. Final impression: Transaminitis Hyperbilirubinemia Disposition: Patient will be discharged home in stable condition Supervising attending attestation: Jesus Ovalle [facility] History of Present Illness Chief Complaint: Other, Pain/Inj Narrative Narrative: Patient is a 69-year-old male who drinks 1-2 beers daily. Presenting to the emergency department for concern he may be turning yellow. Patient states that he is currently getting worked up for some cyst on his liver, he had some blood in his urine possibly a blockage in his gallbladder. When speaking to his PCP, they said if he turns yellow in any way to come to the ER. Today he was having breakfast with his son when his son noticed that his eyes might have been yellow-tinged. He is here for evaluation. Denies any abdominal pain, denies any fever or chills. [facility] Medical History (Updated 08/16/24 @ 16:23 by Wade Murphy NP-C) Kidney stones HTN (hypertension) Home Medications ???Medication ???Instructions ???Recorded ???Last Taken ???Type hydrocodone-acetaminophen 5-325mg 1 - 2 tab PO Q4H PRN PRN Pain ##2 0 01/01/14 01/07/14 06:00 Rx 5mg-325mg ondansetron 4 mg disintegrating 4 mg PO Q8H PRN PRN Nausea #10 tab s 01/01/14 Unknown Rx tablet tamsulosin 0.4 mg capsule 0.4 mg PO DAILY 14 days 01/01/14 U nknown Rx hydrocodone-acetaminophen 5-325mg 1 - 2 tab PO Q4H PRN PRN Pain ##2 0 01/07/14 Unknown Rx 5mg-325mg sulfamethoxazole 800 1 tab PO BID ##20 01/07/14 Unknown Rx mg-trimethoprim 160 mg tablet erythromycin 5 mg/gram (0.5 %) eye 1 applic LEFT EYE 4X/DAY 5 days 12/29/21 Unknown Rx ointment #3.5 grams Allergy/AdvReac Type Severity Reaction Status Date / Time No Known Allergies Allergy Verified 08/16/24 10:24 Surgical History (Updated 08/16/24 @ 10:47 by Beatriz M Kick) H/O hernia repair Social History Smoking Status: Never smoker ROS ROS ED ROS Narrative Constitutional: Negative for fever, chills, weight loss, weakness Eyes: Negative for vision loss, vision change, double vision. Concern for yellowness of his eyes ENT: Negative for any sore throat, ear pain, congestion Cardiovascular: Negative for any chest pain, tightness, palpitations Re (more content not included)... Normal [facility] Eosinophil percentageOrdered By: Wade Murphy on 08-16-2024 Eosinophils/100 WBC (Bld) 3.6 % 0-5 [facility] Epithelial cells.squamous LM Ql (Urine sed)Ordered By: Wade Murphy on 08-16-2024 Epithelial cells.squamous LM.HPF (Urine sed) [#/Area] 0 /[HPF] 0-5 [facility] Erythrocyte distribution wid th (RBC) [Ratio]Ordered By: Wade Murphy on 08-16-2024 Erythrocyte distribution width (RBC) [Entitic vol] 47.5 fL High 35.1-43.9 [facility] Erythrocyte distribution wid th ratioOrdered By: Wade Murphy on 08-16-2024 Erythrocyte distribution width (RBC) [Ratio] 13.3 % 11.6-14.6 [facility] Estimation of creatinine missy aranceOrdered By: Wade Murphy on 08-16-2024 Estimated Creatinine Clearance Calc 57.79 ml/min 50-250 [facility] GFR/1.73 sq M.predicted perla g non-blacks MDRD (S/P/Bld) [Vol rate/Area]Ordered By: Wade Murphy on 08-16-2024 Estimated GFR (MDRD) Non-Af Amer 75 >60 [facility] Comment on above: mL/min/1.73m2 CKD-EP I Creatinine Equation (2020) Glucose Ql (U)Ordered By: Cameron Murphy on 08-16-2024 Urine Glucose (UA) Normal mg/dl Normal [facility] Hematocrit Auto (Bld) [Volum e fraction]Ordered By: Wade Murphy on 08-16-2024 Hematocrit (Bld) [Volume fraction] 45.2 % 40-54 [facility] Hemoglobin measurementOrdere d By: Wade Murphy on 08-16-2024 Hemoglobin (Bld) [Mass/Vol] 15.3 g/dL 13.0-16.5 [facility] Immature granulocytes/100 WB C Auto (Bld)Ordered By: Wade Murphy on 08-16-2024 Immature granulocytes/100 WBC (Bld) 0.600 % 0.0-0.9 [facility] Comment on above: IG% - Immature Granu locytes (promyelocytes, myelocytes and metamyelocytes) > 1% indicates that a LEFT SHIFT is Present. International normalized rat io (INR) calculationOrdered By: Wade Murphy on 08-16-2024 INR Coag (Bld) [Relative time] 0.9 {INR} [facility] Ketones Test strip Ql (U)Ord ered By: Wade Murphy on 08-16-2024 Ketones Ql (U) 5 mg/dl High Negative [facility] - Chemistry and C hemistry - challengeOrdered By: Wade Murphy on 08-16-2024 AST [Catalytic activity/Vol] 303 U/L High <38 [facility] Lipaseon 08-16-2024 Lipase [Catalytic activity/Vol] 37 U/L Normal 13-75 [facility] Comment on above: Result Comment: Brant castillo note: LIPASE revised reference range effective 22. New Lipase methodology. Expected to produce lower values than the previous assay method. NEW Reference Range: 13 - 75 U/L Performed By: #### L 500.2500, L500.3400, L100.0100, L501.2450 #### [facility] [address] [place] [address], [id number] Lipase measurementOrdered By : Wade Murphy on 08-16-2024 Lipase [Catalytic activity/Vol] 37 U/L 13-75 [facility] Comment on above: Please note:LIPASE r evised reference range effective 22. New Lipase methodology. Expected to produce lower values than the previous assay method. NEW Reference Range: 13 - 75 U/L Liver Profileon 08-16-2024 Albumin [Mass/Vol] 4.0 g/dL Normal 3.4-4.8 [facility] Comment on above: Performed By: #### L 500.2500, L500.3400, L100.0100, L501.2450 #### [facility] [address] [place], [address] ALK PHOS 347 U/L High 40-129 [facility] Comment on above: Performed By: #### L 500.2500, L500.3400, L100.0100, L501.2450 #### [facility] [address] [place], [address] ALT [Catalytic activity/Vol] 896 U/L High <=46 [facility] Comment on above: Performed By: #### L 500.2500, L500.3400, L100.0100, L501.2450 #### [facility] [address], [address] AST [Catalytic activity/Vol] 303 U/L High <=37 [facility] Comment on above: Performed By: #### L 500.2500, L500.3400, L100.0100, L501.2450 #### [facility] [address] [place], [address] Bilirubin [Mass/Vol] 3.23 mg/dL High 0.00-1.30 [facility] Comment on above: Performed By: #### L 500.2500, L500.3400, L100.0100, L501.2450 #### [facility] [address], [address] Bilirubin.direct [Mass/Vol] 2.28 mg/dL High 0.00-0.30 [facility] Comment on above: Performed By: #### L 500.2500, L500.3400, L100.0100, L501.2450 #### [facility] [address] [place], [address] Globulin (S) [Mass/Vol] 2.9 g/dL Normal 2.2-4.2 [facility] Comment on above: Performed By: #### L 500.2500, L500.3400, L100.0100, L501.2450 #### [facility] [address] [place], [address] T PROT 6.9 g/dL Normal 5.9-8.4 [facility] Comment on above: Performed By: #### L 500.2500, L500.3400, L100.0100, L501.2450 #### [facility] [address] [place], [address] Lymphocytes Auto (Unsp spec) [#/Vol]Ordered By: Wade Murphy on 08-16-2024 Lymphocytes (Bld) [#/Vol] 0.94 10*3/uL 0.83-4.51 [facility] Lymphocytes/100 WBC Auto (Un sp spec)Ordered By: Wade Murphy on 08-16-2024 Lymphocytes/100 WBC (Bld) 12.1 % Low 19-41 [facility] MCV (mean corpuscular volume ) determinationOrdered By: Wade Murphy on 08-16-2024 MCV (RBC) [Entitic vol] 96.6 fL High 80-94 [facility] Mean corpuscular hemoglobin (MCH) determinationOrdered By: Wade Murphy on 08-16-2024 MCH (RBC) [Entitic mass] 32.7 pg High 27.0-32.0 [facility] Mean corpuscular hemoglobin concentration (MCHC) determinationOrdered By: Wade Murphy on 08-16-2024 MCHC (RBC) [Mass/Vol] 33.8 g/dL 32-36 [facility] Mean platelet volume determi nationOrdered By: Wade Murphy on 08-16-2024 Platelet mean volume (Bld) [Entitic vol] 9.7 fL 6.2-12.0 [facility] Microscopic analysis of urin e for red blood cells (RBC)Ordered By: Wade Murphy on 08-16-2024 Urine RBC 0 SEEN /hpf 0-5 [facility] Monocyte percentageOrdered B y: Wade Murpyh on 08-16-2024 Monocytes/100 WBC (Bld) 10.4 % High 0-10 [facility] Mucus LM Ql (Urine sed)Order ed By: Wade Murphy on 08-16-2024 Mucus Ql (Urine sed) 1+ /hpf [facility] Neutrophil percentageOrdered By: Wade Murphy on 08-16-2024 Neutrophils/100 WBC (Bld) 72.8 % High 47-70 [facility] Nitrite Test strip Ql (U)Ord ered By: Wade Murphy on 08-16-2024 Nitrite Ql (U) Negative Negative [facility] Nucleated red blood cell per centageOrdered By: Wade Murphy on 08-16-2024 Nucleated RBC/100 WBC (Bld) [Ratio] 0 % 0-5 [facility] Platelet countOrdered By: Cameron Murphy on 08-16-2024 Platelets (Bld) [#/Vol] 271 10*3/uL 150-450 [facility] Potassium (Unsp spec) [Mass/ Vol]Ordered By: Wade Murphy on 08-16-2024 Potassium [Moles/Vol] 4.0 mmol/L 3.3-5.1 [facility] Protein Test strip Ql (U)Ord ered By: Wade Murpyh on 08-16-2024 Protein Ql (U) 30 mg/dl High Negative [facility] Prothrombin Time w/INRon INR Coag (PPP) [Relative time] 0.9 {INR} Normal [facility] Comment on above: Performed By: #### L 300.3900 #### [facility] [address] [place], [address] (158 PT Coag (PPP) [Time] 12.5 s Normal 11.7-14.9 [facility] Comment on above: Performed By: #### L 300.3900 #### [facility] [address] [place], [address] Prothrombin timeOrdered By: Wade Murphy on 08-16-2024 PT Coag (PPP) [Time] 12.5 s 11.7-14.9 [facility] RBC Auto (Bld) [#/Vol]Ordere d By: Wade Murphy on 08-16-2024 RBC (Bld) [#/Vol] 4.68 10*6/uL 4.6-6.2 [facility] Serum creatinine measurement (mass/volume)Ordered By: Wade Murphy on 08-16-2024 Creatinine [Mass/Vol] 1.06 mg/dL 0.70-1.20 [facility] Serum globulin measurementOr dered By: Wade Murphy on 08-16-2024 Globulin (S) [Mass/Vol] 2.9 g/dL 2.2-4.2 [facility] Serum glucose measurement (m ass/volume)Ordered By: Wade Murphy on 08-16-2024 Glucose [Mass/Vol] 101 mg/dL High 70-99 [facility] Serum or plasma alanine caro otransferase (ALT) measurementOrdered By: Wade Murphy on 08-16-2024 ALT [Catalytic activity/Vol] 896 U/L High <47 [facility] Serum or plasma albumin kathia urement (mass/volume)Ordered By: Wade Murphy on 08-16-2024 Albumin [Mass/Vol] 4.0 g/dL 3.4-4.8 [facility] Serum or plasma alkaline roldan sphatase measurementOrdered By: Wade Murphy on 08-16-2024 ALP [Catalytic activity/Vol] 347 U/L High 40-129 [facility] Serum or plasma calcium kathia urement (mass/volume)Ordered By: Wade Murphy on 08-16-2024 Calcium [Mass/Vol] 9.6 mg/dL 7.6-11.0 [facility] Serum or plasma urea nitroge n measurement (mass/volume)Ordered By: Wade Murphy on 08-16-2024 Urea nitrogen [Mass/Vol] 20 mg/dL High 4-19 [facility] Sodium levelOrdered By: Wade Murphy on 08-16-2024 Sodium [Moles/Vol] 139 mmol/L 133-145 [facility] Total proteinOrdered By: Gilma Murphy on 08-16-2024 Protein [Mass/Vol] 6.9 g/dL 5.9-8.4 [facility] Urinalysis, Completeon 08-16 Mucus Ql (Urine sed) 1+ /hpf Normal [facility] Comment on above: Order Comment: COLOR OF URINE MAY AFFECT DIPSTICK RESULTS.CLEAN CATCH Performed By: #### L 400.0001 ####[facility] [address] [place], [address] WBC 0-5 SEEN Normal 0-5 [facility] Comment on above: Order Comment: COLOR OF URINE MAY AFFECT DIPSTICK RESULTS.CLEAN CATCH Performed By: #### L 400.0001 ####[facility] [address] [place], [address] BACTERIA 0 SEEN Normal None Seen [facility] Comment on above: Order Comment: COLOR OF URINE MAY AFFECT DIPSTICK RESULTS.CLEAN CATCH Performed By: #### L 400.0001 ####[facility] [address] [place], [address] EPI,SQUAMOUS 0 SEEN Normal 0-5 [facility] Comment on above: Order Comment: COLOR OF URINE MAY AFFECT DIPSTICK RESULTS.CLEAN CATCH Performed By: #### L 400.0001 ####[facility] [address] [place], [address] RBC 0 SEEN Normal 0-5 [facility] Comment on above: Order Comment: COLOR OF URINE MAY AFFECT DIPSTICK RESULTS.CLEAN CATCH Performed By: #### L 400.0001 ####[facility] [address] [place], [address] Urine blood detectionOrdered By: Wade Murphy on 08-16-2024 Urine Occult Blood 10 /ul High Negative [facility] Urine clarityOrdered By: Gilma Murphy on 08-16-2024 Clarity (U) Clear Clear [facility] Urine color determinationOrd ered By: Wade Murphy on 08-16-2024 Color (U) Ulices Yellow [facility] Urine leukocyte esterase det ection by dipstickOrdered By: Wade Murphy on 08-16-2024 Leukocyte esterase Test strip Ql (U) 25 /ul High Negative [facility] Urine pHOrdered By: Wade jacob on 08-16-2024 pH (U) 5.0 [pH] 5.0 - 8.0 [facility] Urine sediment bacteria coun t by microscopy (number/high power field)Ordered By: Wade Murphy on 08-16-2024 Bacteria LM.HPF (Urine sed) [#/Area] 0 /[HPF] None Seen [facility] Urine specific gravity measu rementOrdered By: Wade Murphy on 08-16-2024 Specific gravity (U) [Rel density] 1.020 1.002-1.030 [facility] Urobilinogen Ql (U)Ordered B y: Wade Murphy on 08-16-2024 Urobilinogen (U) [Mass/Vol] 8 mg/dL High Normal [facility] White blood cell (WBC) count Ordered By: Wade Murphy on 08-16-2024 WBC (Bld) [#/Vol] 7.8 10*3/uL 4.4-11.0 [facility] White blood cell countOrdere d By: Wade Murphy on 08-16-2024 Urine WBC 0-5 SEEN /hpf 0-5 [facility] CMV IgG Qnon 08-15-2024 CMV IGG QUAL Negative Normal Negative [facility] Comment on above: Order Comment: Speci men Type: BLOOD SPECIMENOrdering Facility: [facility] Address: [address] [place] [address] Result Comment: No s erological evidence of past exposure to Cytomegalovirus. Cannot exclude recent infection if the specimen collected within 4-6 weeks after infection. Performed By: #### 7 852-7, 7853-5 ####[facility] LABCLIA [id number] [place] [address] [place] CMV IgG SerPl-aCncon 025 CMV IgG Qn <0.20 Normal [facility] Comment on above: Order Comment: Speci men Type: BLOOD SPECIMENOrdering Facility: [facility] Address: [address] [place] [address] Result Comment: The magnitude of the measured result is not indicative of the amount of antibody present. U/mL values are interpreted as follows: Negative <0.6 Equivocal 0.6 to <0.70 Positive >=0.70 Performed By: #### 7 852-7, 7853-5 ####[facility] LABCLIA [id number] [address] CMV IgM Qnon 08-15-2024 CMV IGM, QUAL Negative Normal Negative [facility] Comment on above: Order Comment: Speci men Type: BLOOD SPECIMENOrdering Facility: [facility] Address: [address] [place] [address] [place] [address] Result Comment: No s erological evidence of recent exposure to Cytomegalovirus. Performed By: #### 7 852-7, 7853-5 ####[facility] LABCLIA [id number] [address] 08-15-2024 CNPN Telephone (INTMWS) -- CHLOÉ GUTIERREZ ([id number]) 1955 M Date Time Provider Department 08/15/24 AWILDA MATTSON [facility] During your visit today, we recorded the following information about you: Libby Horton LPN 08/15/2024 4:48 PM Signed Patient calling asking if he has been taking a hot bath with jets daily at home in his bathtub, if that could pose a problem? He said he was talking to the GENERAL ADJUSTER about CT results shortly ago. Please advise Kiersten Plasencia RN 08/18/2024 10:17 AM Signed Patient calling and is asking about CT results. Please review and advise, GRISELDA Schuster Terri, LICHA.TEAMSITE DEVELOPER 08/18/2024 2:06 PM Addendum I reviewed CT results with him on Sunday. He had additional labwork., some results are still pending. I placed an e-consult Sunday with gastroenterology. The impression with this is a mixed pattern of liver injury and raises concern for possible drug-induced liver damage. Recommended adding 2 additional tests-smooth M antibody and AMA. Repeat liver function test weekly for 3 weeks. If levels keep rising we will get additional testing to include pro time and admit and MR CP and MRI. Will then share the results with the ladle repairman. Ask 1-How is he feeling today? 2- What does urine look like? 3-Ask him if any new medications taken including over the counter. Did report taking AREDs supplement per eye doctor recommendations. Anything else OTC? Marissa Ordonez LPN 08/18/2024 3:26 PM Signed Patient was given providers message and verbalized understanding.. Patient states he is feeling better and urine has lightened up but sometimes still has some darker color to it. Patient states no new medications including no new otc meds. Patient does report he is getting eye injections and is having some dental problems. Patient also states that he was to watch for yellowing in eyes and skin and couldn't tell if he eyes were yellow so went to the ER to have them checked and they ran more test including ultrasound. Record obtained and on the desk for review. Patient also states he has a job waiting in [place] that will last 5-6 days and wanted to know when he will be healthy enough to do job. Would like to go as soon as possible. Awilda Mattson APRN.TEAMSITE DEVELOPER 08/18/2024 3:55 PM Signed Noted, will reviewe records. I would encourage staying local until we have a better idea of what is causing his problems. Allergies As of Date: 08/15/2024 Noted Allergy Reaction SEASONAL ALLERGIES 08/14/2024 14 - Other: See Comments Date Reviewed: 08/14/2024 Reviewed by: Marissa Ordonez LPN - Fully Assessed Reason for Visit: Patient Question [9367] Results [95] Primary Visit Diagnosis:Hyperbilirubinem ia [E80.6] Other Visit Diagnosis:Elevated liver enzymes [R74.8] Order(s):SMOOTH MUSCLE AB SCR [SQSMTHS] Order #: [id number] FUTURE MITOCHONDRIAL M2 IGG SERUM [SQMITOS] Order #: [id number] FUTURE HEPATIC FUNCTION PNL [SQHFP] Order #: [id number] STANDING Prescriptions as of 08/18/2024 - amLODIPine (NORVASC) 2.5 mg tablet Take 1 tablet by mouth once daily. Problem List As Of Date 08/15/2024 Noted Resolved Primary hypertension [I10] 08/30/2007 Mixed hyperlipidemia [E78.2] 09/02/2007 CALCULUS OF KIDNEY [N20.0] 10/05/2008 Tobacco use disorder [F17.200] 10/28/2008 12/25/2012 Encounter Status:Closed by AWILDA MATTSON on 08/18/24 Normal [facility] CT ABD/PEL W IVCONon 025 CT ABD/PEL W IVCON * * *Final Report* * * DATE OF EXAM: Aug 15 2024 2:07PM [facility] 0530 - CT ABD/PEL W IVCON / PROCEDURE REASON: multiple diagnoses * * * * Physician Interpretation * * * * EXAMINATION: CT ABDOMEN AND PELVIS WITH IV CONTRAST CLINICAL HISTORY: Hyperbilirubinemia, hematuria TECHNIQUE: CT of the abdomen and pelvis was performed using standard technique, scanning from just above the dome of the diaphragm to the symphysis pubis. MQ: CTAP_3 Contrast: IV: 100 ml of Omnipaque 350 Oral: 12.5 ml of Omni 240 10-25ml diluted with water CT Radiation dose: Integrated Dose-length product (DLP) for this visit = 367.50 mGy*cm. CT Dose Reduction Employed: Automated exposure control(AEC) and iterative recon COMPARISON: No recent comparison RESULT: Images obtained through the lung bases are unremarkable. The liver is mildly enlarged. Several scattered subcentimeter hypodensities are too small to accurately characterize but statistically small cysts. There is no intrahepatic or extrahepatic biliary duct dilatation. Cholelithiasis is noted without gallbladder wall thickening or pericholecystic edema. The spleen, pancreas and adrenal glands are unremarkable. The kidneys are symmetric in size and enhancement with bilateral cortical and parapelvic cysts. No hydronephrosis. The ureters are normal in course and caliber. There is mild circumferential wall thickening of the urinary bladder. The prostate gland is enlarged and heterogeneous with dystrophic calcification. Small fat-containing inguinal hernia noted on the right. The abdominal aorta is normal in course and caliber with mild atherosclerotic calcifications. The stomach, small bowel and colon are normal in course and caliber. The appendix is unremarkable. Diverticulosis is present throughout the sigmoid colon without acute diverticulitis. There is no intraperitoneal free air, focal fluid collection or pathologic adenopathy. No acute osseous abnormality. Mild levoscoliosis and degenerative change noted in the lumbar spine. IMPRESSION: 1. Mild circumferential wall thickening of the urinary bladder may be related to incomplete distention, chronic outlet obstruction and/or cystitis. 2. Prostatomegaly. 3. Other chronic and incidental findings as above. Dog Barber: RAMILA Transcribe Date/Time: Aug 15 2024 2:17P Dictated by : PABLITO NAM MD This examination was interpreted and the report reviewed and electronically signed by: PABLITO NAM MD on Aug 15 2024 2:34PM EST [id number] Normal [facility] EBV capsid IgG Qn (S)on 07-23 EBV VCA IGG, QUAL Positive Abnormal Negative [facility] Comment on above: Order Comment: Speci men Type: BLOOD SPECIMENOrdering Facility: [facility] Address: [address] [place] [address] Result Comment: The result suggests recent or past EBV infection. The final interpretation should be done in the context of other EBV serology panel results. Performed By: #### 7 885-7, 7886-5 ####[facility] LABCLIA [id number] [place] [address] [place] EBV capsid IgM Qn (S)on 07-23 EBV VCA IGM, QUAL Negative Normal Negative [facility] Comment on above: Order Comment: Speci [facility] Type: BLOOD SPECIMENOrdering Facility: [facility] Address: [address] [place] [address] Result Comment: No s erological evidence of recent EBV infection. Performed By: #### 7 885-7, 7886-5 ####[facility] LABCLIA [id number] [address] [address] [place] HAV IgM Ser Qlon 08-15-2024 HAV IgM Ql (S) Non-Reactive Normal Nonreactive, Equivocal [facility] Comment on above: Order Comment: Celso loyd Type: BLOOD SPECIMEN [facility]ing [facility]: [facility] Address: [address] [place] [address] Result Comment: Resu lts were obtained with the [employer] IM IgM assay. Values obtained with different manufactures' assay methods may not be used interchangeably. Assay performance characteristics have not been established for immunocompromised or immunosuppressed patients, cord blood, or patients less than 2 years of age. These results may be falsely depressed in the presence of Biotin concentrations above 500 ng/mL. Performed By: #### 2 2314-9, 31278-6, 17156-4, 69763-2, 48893-6, 5-3 #### [facility] CLIA [id number] [address] [place] [address] [place] HBV core Ab Ser Qlon HBV core Ab Ql (S) Non-Reactive Normal Nonreactive [facility] Comment on above: Order Comment: Celso loyd Type: BLOOD SPECIMEN [facility]ing [facility]: [facility] Address: [address] [place] [address] Result Comment: Resu lts were obtained with the [employer] IM IgM assay. Values obtained with different manufactures' assay methods may not be used interchangeably. Performed By: #### 2 2314-9, 94397-1, 26965-2, 37474-1, 76042-4, 5-3 #### [facility] CLIA [id number] [address] [place] [address] [place] HBV core IgM Ser Qlon 2024 HBV core IgM Ql (S) Non-Reactive Normal Nonreact jorje, Equivocal [facility] Comment on above: Order Comment: Celso loyd Type: BLOOD SPECIMEN Ordering [facility]: [facility] Address: [address] [place] [address] Result Comment: Resu lts were obtained with the [employer] IM IgM assay. Values obtained with different manufactures' assay methods may not be used interchangeably. Performed By: #### 2 2314-9, 26746-9, 23867-4, 63642-2, 83168-5, 5195-3 #### [facility] CLIA [id number] [address] [place] [address] [place] HBV surface Ab Ql (S)on 07-23 HBV surface Ab Qn (S) 4.20 mIU/mL Normal [facility] Comment on above: Order Comment: Speci men Type: BLOOD SPECIMEN Ordering Facility: [facility] Address: [address] [place] [address] Result Comment: STAT US OF IMMUNITY Protective Immunity: greater than or equal to 10 mIU/mL (Traceable to WHO International Reference Preparation) No Protective Immunity: less than 10 mIU/mL Note: The magnitude of the measured result above the cutoff is not indicative of the total amount of antibody present. Performed By: #### 2 2314-9, 45732-7, 27481-0, 01040-0, 83925-9, 5194-3 #### [facility] CLIA [id number] [address] [place] [address] [place] HBV surface Ab Ser Qlon 07-23 HBV surface Ab Ql (S) Negative Normal [facility] Comment on above: Order Comment: Speci evert Type: BLOOD SPECIMEN Ordering Facility: [facility] Address: [address] [place] [address] Result Comment: No s erological evidence of immunity to Hepatitis B Virus. Performed By: #### 2 2314-9, 94450-2, 67679-1, 37181-9, 94933-4, 5194-3 #### [facility] CLIA [id number] [address] [place] [address] [place] HBV surface Ag Ser Qlon 07-23 HBV surface Ag Ql (S) Non-Reactive Normal Equivo kalpesh, Nonreactive [facility] Comment on above: Order Comment: Speci [facility] Type: BLOOD SPECIMEN Ordering Facility: [facility] Address: [address] [place] [address] Result Comment: Resu lts were obtained with the [employer] IM IgM assay. Values obtained with different manufactures' assay methods may not be used interchangeably. Performed By: #### 2 2314-9, 08029-6, 94679-3, 69548-8, 40755-2, 5195-3 #### [facility] CLIA [id number] [address] [place] [address] Order Comment: Speci men Type: BLOOD SPECIMENOrdering Facility: [facility] Address: [address] [place] [address] Performed By: #### 1 6128-1, 5-3 ####[facility]ORYCLIA [id number] [address] HCV Ab Ser Qlon 08-15-2024 HCV Ab Ql (S) Non-Reactive Normal Nonreactive [facility] Comment on above: Order Comment: Speci men Type: BLOOD SPECIMEN Ordering Facility: [facility] Address: [address] [place] [address] Result Comment: Scre ening test negative Nonreactive HCV Antibody Screen is consistent with no HCV infection, unless recent infection is suspected or other evidence exists to indicate HCV infection. Results were obtained with the [employer] IM IgG assay. Values obtained with different manufactures' assay methods may not be used interchangeably. Performed By: #### 2 2314-9, 06286-9, 49646-4, 72349-5, 04502-3, 5194-3 #### [facility] CLIA [id number] [address] [place] [address] Performed By: #### 1 6128-1, 5195-3 #### [facility] CLIA [id number] [address] [place] [address] bilirubin panel [Ma ss/Vol]on 08-15-2024 Bilirubin [Mass/Vol] 3.8 mg/dL High 0.2-1.0 [facility] Comment on above: Order Comment: Speci men Type: BLOOD SPECIMENOrdering Facility: [facility] Address: [address] [place] [address] Performed By: #### 5 0189-0 ####[facility]ORATORYCLIA [id number] [place] [address] [place] Bilirubin.conjugated [Mass/Vol] 2.6 mg/dL High 0.0-0.4 [facility] Comment on above: Order Comment: Speci men Type: BLOOD SPECIMENOrdering Facility: [facility] Address: [address] [place] [address] Performed By: #### 5 0189-0 ####[facility]ORYCLIA [id number] [place] [address] [place] Bilirubin.indirect [Mass/Vol] 1.2 mg/dL Normal 0.2-1.2 [facility] Comment on above: Order Comment: Speci men Type: BLOOD SPECIMENOrdering Facility: [facility] Address: [address] [place] [address] Performed By: #### 5 0189-0 ####[facility]ORYCLIA [id number] [place] [address] [place] URINALYSIS, REFLEX MICROSCOP ICon 08-15-2024 Bacteria LM.HPF (Urine sed) [#/Area] Rare Abnormal None Seen [facility] Comment on above: Order Comment: Speci men Type: URINE SPECIMEN [facility] Address: [address] [place] [address] Performed By: #### L [id number] #### [facility] CLIA [id number] [address] [place] [address] [place] Bilirubin Ql (U) 1+ Abnormal Negative [facility] Comment on above: Order Comment: Speci men Type: URINE SPECIMEN Ordering Facility: [facility] Address: [address] [place] [address] Result Comment: Sugg est correlation with clinical findings and serum bilirubin if clinically indicated. Performed By: #### L [id number] #### [facility] CLIA [id number] [address] [place] [address] [place] CALCIUM OXALATE CRYSTALS (UA) Few Abnormal None Seen [facility] Comment on above: Order Comment: Speci men Type: URINE SPECIMEN Ordering Facility: [facility] Address: [address] [place] [address] Performed By: #### L [id number] #### [facility] CLIA [id number] [address] [place], [place] [address] [place] Clarity (Unsp spec) Clear Normal Clear [facility] Comment on above: Order Comment: Speci men Type: URINE SPECIMEN Ordering Facility: [facility] Address: [address] [place] [address] Performed By: #### L [id number] #### [facility] CLIA [id number] [address] [place] [address] [place] Color (U) Ulices Abnormal Yellow [facility] Comment on above: Order Comment: Speci men Type: URINE SPECIMEN Ordering Facility: [facility] Address: [address] [place] [address] Performed By: #### L [id number] #### [facility] CLIA [id number] [address] [place] [address] [place] Epithelial cells LM.HPF (Urine sed) [#/Area] Few Normal [facility] Comment on above: Order Comment: Speci men Type: URINE SPECIMEN Ordering Facility: [facility] Address: [address] [place] [address] Performed By: #### L [id number] #### [facility] CLIA [id number] [address] [place], [place] [address] [place] Glucose Test strip (U) [Mass/Vol] Negative Normal Negative [facility] Comment on above: Order Comment: Speci men Type: URINE SPECIMEN Ordering Facility: [facility] Address: [address] [place] [address] Performed By: #### L [id number] #### [facility] CLIA [id number] [address] [place] [address] [place] Hemoglobin Ql (U) Negative Normal Negative [facility] Comment on above: Order Comment: Speci men Type: URINE SPECIMEN Ordering Facility: [facility] Address: [address] [place] [address] Performed By: #### L [id number] #### [facility] CLIA [id number] [address] [place] [address] [place] Hyaline casts (Urine sed) [#/Area] 1-3 /LPF Abnormal 0 /LPF [facility] Comment on above: Order Comment: Speci men Type: URINE SPECIMEN Ordering Facility: [facility] Address: [address] [place] [address] Performed By: #### L [id number] #### [facility] CLIA [id number] [address] [place] [address] [place] Ketones Ql (U) Negative Normal Negative [facility] Comment on above: Order Comment: Speci men Type: URINE SPECIMEN Ordering Facility: [facility] Address: [address] [place] [address] Performed By: #### L [id number] #### [facility] CLIA [id number] [address] [place] [address] Leukocyte esterase Test strip Ql (U) Negative Normal Negative [facility] Comment on above: Order Comment: Speci men Type: URINE SPECIMEN Ordering Facility: [facility] Address: [address] [place] [address] Performed By: #### L [id number] #### [facility] CLIA [id number] [address] [place] [address] [place] Nitrite Ql (U) Negative Normal Negative [facility] Comment on above: Order Comment: Speci men Type: URINE SPECIMEN Ordering Facility: [facility] Address: [address] [place] [address] Performed By: #### L [id number] #### [facility] CLIA [id number] [address] [place] [address] [place] pH (U) 5.0 [pH] Normal 5.0-8.0 [facility] Comment on above: Order Comment: Speci men Type: URINE SPECIMEN Ordering Facility: [facility] Address: [address] [place] [address] Performed By: #### L [id number] #### [facility] CLIA [id number] [address] [place] [address] [place] Protein (U) [Mass/Vol] 2+ Abnormal Negative [facility] Comment on above: Order Comment: Speci men Type: URINE SPECIMEN Ordering Facility[facility] Address: [address] [place] [address] Performed By: #### L [id number] #### [facility] CLIA [id number] [address] [place] [address] [place] RBC LM.HPF (Urine sed) [#/Area] 0-3 /HPF Normal 0-3 /HPF [facility] Comment on above: Order Comment: Speci men Type: URINE SPECIMEN Ordering Facility: [facility] Address: [address] [place] [address] Performed By: #### L [id number] #### [facility] CLIA [id number] [address] [place] [address] [place] Specific gravity (U) [Rel density] 1.026 Normal 1.005-1.030 [facility] Comment on above: Order Comment: Speci men Type: URINE SPECIMEN Ordering Facility: [facility] Address: [address] [place] [address] Performed By: #### L [id number] #### [facility] CLIA [id number] [address] [place] [address] [place] Urobilinogen Ql (U) 2+ Abnormal Negative [facility] Comment on above: Order Comment: Speci men Type: URINE SPECIMEN Ordering Facility: [facility] Address: [address] [place] [address] Performed By: #### L [id number] #### [facility] CLIA [id number] [address] [place] [address] [place] WBC LM.HPF (Urine sed) [#/Area] 0-5 /HPF Normal 0-5 /HPF [facility] Comment on above: Order Comment: Speci men Type: URINE SPECIMEN Ordering Facility: [facility] Address: [address] [place] [address] Performed By: #### L [id number] #### [facility] CLIA [id number] [address] [place] [address] [place] Bacteria Ur Culton Bacteria identified Cx Nom (U) ORGANISM ID: 1 <10,000 CFU/ml Normal urogenital hany Normal [facility] Comment on above: Performed By: #### 6 30-4 ####[facility] [id number] [place] [address] [place] CBC W Auto Differential pane l (Bld)on 08-14-2024 Basophils (Bld) [#/Vol] 10*3/uL Normal <0.11 [facility] Comment on above: Order Comment: Speci men Type: BLOOD SPECIMENOrdering Facility: [facility] Address: [address] [place] [address] Performed By: #### 5 7021-8 ####[facility] [id number] [place] [address] [place] Basophils/100 WBC (Bld) 0.1 % Normal [facility] Comment on above: Order Comment: Speci men Type: BLOOD SPECIMENOrdering Facility: [facility] Address: [address] [place] [address] Performed By: #### 5 7021-8 ####[facility] [id number] [place] [address] [place] Differential cell count method Nom (Bld) Auto Normal [facility] Comment on above: Order Comment: Speci men Type: BLOOD SPECIMENOrdering Facility: [facility] Address: [address] [place] [address] Performed By: #### 5 7021-8 ####[facility] [id number] [place] [address] [place] Eosinophils (Bld) [#/Vol] 0.31 10*3/uL Normal <0.46 [facility] Comment on above: Order Comment: Speci men Type: BLOOD SPECIMENOrdering Facility: [facility] Address: [address] [place] [address] Performed By: #### 5 7021-8 ####[facility] [id number] [address] [place] [address] [place] Eosinophils/100 WBC (Bld) 4.2 % Normal [facility] Comment on above: Order Comment: Speci men Type: BLOOD SPECIMENOrdering Facility: [facility] Address: [address] [place] [address] Performed By: #### 5 7021-8 ####[facility] [id number] [address], [facility]95 [place] Erythrocyte distribution width (RBC) [Ratio] 13.2 % Normal 11.5-15.0 [facility] Comment on above: Order Comment: Speci men Type: BLOOD SPECIMENOrdering Facility: [facility] Address: [address] [place] [address] Performed By: #### 5 7021-8 ####[facility] [id number] [address], [facility]95 [place] Hematocrit (Bld) [Volume fraction] 47.9 % Normal 39.0-51.0 [facility] Comment on above: Order Comment: Speci men Type: BLOOD SPECIMENOrdering Facility: [facility] Address: [address] [place] [address] Performed By: #### 5 7021-8 ####[facility] [id number] [place] [id number] [place] Hemoglobin (Bld) [Mass/Vol] 16.2 g/dL Normal 13.0-17.0 [facility] Comment on above: Order Comment: Speci men Type: BLOOD SPECIMENOrdering Facility: [facility] Address: [address] [place] [address] Performed By: #### 5 7021-8 ####[facility] [id number] [place] [address] [place] Immature granulocytes (Bld) [#/Vol] 0.04 10*3/uL Normal <0.10 [facility] Comment on above: Order Comment: Speci men Type: BLOOD SPECIMENOrdering Facility: [facility] Address: [address] [place] [address] Performed By: #### 5 7021-8 ####[facility] [id number] [place] [address] [place] Immature granulocytes/100 WBC (Bld) 0.5 % Normal [facility] Comment on above: Order Comment: Speci men Type: BLOOD SPECIMENOrdering Facility: [facility] Address: [address] [place] [address] Performed By: #### 5 7021-8 ####[facility] [id number] [place] [address] [place] Lymphocytes (Bld) [#/Vol] 0.79 10*3/uL Low 1.00-4.00 [facility] Comment on above: Order Comment: Speci men Type: BLOOD SPECIMENOrdering Facility: [facility] Address: [address] [place] [address] Performed By: #### 5 7021-8 ####[facility] [id number] [address] [place] Lymphocytes/100 WBC (Bld) 10.8 % Normal [facility] Comment on above: Order Comment: Speci men Type: BLOOD SPECIMENOrdering Facility: [facility] Address: [address] [place] [address] Performed By: #### 5 7021-8 ####[facility] [id number] [place] [address] [place] MCH (RBC) [Entitic mass] 32.3 pg Normal 26.0-34.0 [facility] Comment on above: Order Comment: Speci men Type: BLOOD SPECIMENOrdering Facility: [facility] Address: [address] [place] [address] Performed By: #### 5 7021-8 ####[facility] [id number] [place] [address] [place] MCHC (RBC) [Mass/Vol] 33.8 g/dL Normal 30.5-36.0 [facility] Comment on above: Order Comment: Speci men Type: BLOOD SPECIMENOrdering Facility: [facility] Address: [address] [place] [address] Performed By: #### 5 7021-8 ####[facility] [id number] [place] [address] [place] MCV (RBC) [Entitic vol] 95.6 fL Normal 80.0-100.0 [facility] Comment on above: Order Comment: Speci men Type: BLOOD SPECIMENOrdering Facility: [facility] Address: [address] [place] [address] Performed By: #### 5 7021-8 ####[facility] [id number] [place] [address] [place] Monocytes (Bld) [#/Vol] 0.75 10*3/uL Normal <0.87 [facility] Comment on above: Order Comment: Speci men Type: BLOOD SPECIMENOrdering Facility: [facility] Address: [address] [place] [address] Performed By: #### 5 7021-8 ####[facility] [id number] [address] [place] Monocytes/100 WBC (Bld) 10.3 % Normal [facility] Comment on above: Order Comment: Speci men Type: BLOOD SPECIMENOrdering Facility: [facility] Address: [address] [place] [address] Performed By: #### 5 7021-8 ####[facility] [id number] [place] [address] [place] Neutrophils (Bld) [#/Vol] 5.40 10*3/uL Normal 1.45-7.50 [facility] Comment on above: Order Comment: Speci men Type: BLOOD SPECIMENOrdering Facility: [facility] Address: [address] [place] [address] Performed By: #### 5 7021-8 ####[facility] [id number] [place] [address] [place] Neutrophils/100 WBC (Bld) 74.1 % Normal [facility] Comment on above: Order Comment: Speci men Type: BLOOD SPECIMENOrdering Facility: [facility] Address: [address] [place] [address] Performed By: #### 5 7021-8 ####[facility] [id number] [place] [address] [place] Nucleated RBC (Bld) [#/Vol] 10*3/uL Normal <0.01 [facility] Comment on above: Order Comment: Speci men Type: BLOOD SPECIMENOrdering Facility: [facility] Address: [address] [place] [address] Performed By: #### 5 7021-8 ####[facility] [id number] [place] [address] [place] Nucleated RBC/100 WBC (Bld) [Ratio] 0.0 /100 WBC Normal [facility] Comment on above: Order Comment: Speci men Type: BLOOD SPECIMENOrdering Facility: [facility] Address: [address] [place] [address] Performed By: #### 5 7021-8 ####[facility] [id number] [place] [id number] [place] Platelet mean volume (Bld) [Entitic vol] 11.3 fL Normal 9.0-12.7 [facility] Comment on above: Order Comment: Speci men Type: BLOOD SPECIMENOrdering Facility: [facility] Address: [address] [place] [address] Performed By: #### 5 7021-8 ####[facility] [id number] [place] [address] [place] Platelets (Bld) [#/Vol] 184 10*3/uL Normal 150-400 [facility] Comment on above: Order Comment: Speci men Type: BLOOD SPECIMENOrdering Facility: [facility] Address: [address] [place] [address] Performed By: #### 5 7021-8 ####[facility] [id number] [place] [address] [place] RBC (Bld) [#/Vol] 5.01 10*6/uL Normal 4.20-6.00 [facility] Comment on above: Order Comment: Speci men Type: BLOOD SPECIMENOrdering Facility: [facility] Address: [address] [place] [address] Performed By: #### 5 7021-8 ####[facility] [id number] [place] [address] [place] WBC (Bld) [#/Vol] 7.30 10*3/uL Normal 3.70-11.00 [facility] Comment on above: Order Comment: Speci men Type: BLOOD SPECIMENOrdering Facility: [facility] Address: [address] [place] [address] Performed By: #### 5 7021-8 ####[facility] [id number] [place] [id number] [place] CNOVon 08-14-2024 CNOV Office Visit (INTMWS ) -- CHLOÉ GUTIERREZ ([id number]) 1955 M Date Time Provider Department 08/14/24 12:40 PM AWILDA MATTSON During your visit today, we recorded the following information about you: Pulse Respiration Blood pressure Weight 102/minute 16/minute 131/90 71 kg Awilda Mattson, LICHA.TEAMSITE DEVELOPER 08/15/2024 9:20 AM Addendum Subjective Patient ID: Chloé is a 69 year old male who presents for Hematuria. HPI History of renal calculi with microscopic hematuria. History of lithotipsy 2013 Urologist: no current S/P left inguinal hernia repair July 16, [address] Navarro at [facility]. Presents today noting gross hematuria since Sunday. He was seen by express care while traveling and advised to just follow-up with primary care provider, no treatment. Today reports ongoing red blood in his urine. Negative for flank pain. Negative for decreased urine volume, difficulty urinating, dysuria,penile discharge, penile pain, penile swelling, scrotal swelling, testicular pain or urinary urgency. Afebrile. No abdomina or CVA discomfort. Hematuria: - Gross hematuria since Sunday, described as red dye in water. - No associated dysuria, urgency, or increased frequency. - Urine described as thicker than usual. - No back pain or abdominal pain; denies symptoms similar to previous nephrolithiasis episodes. - Recent visit to urgent care in [place] revealed trace of blood in urine. - Family history of kidney cancer in twin brother, who had a nephrectomy within the past year. Inguinal Hernia Repair: - Recent laparoscopic inguinal hernia repair with mesh placement in [place], [place]. - Postoperative numbness in the leg, described as a weird feeling, but no pain. ROS Gastrointestinal: (-) abdominal discomfort + addominal bloating Genitourinary: (+) hematuria, (-) dysuria, (-) urinary frequency, (-) urinary urgency, (-) flank pain Musculoskeletal: (-) back pain Neurological: (+) leg numbness Objective BP 131/90 Pulse 102 Resp 16 Wt 71 kg (156 lb 8.4 oz) BMI 27.73 kg/m? Physical Exam Vitals and nursing note reviewed. Constitutional: Appearance: Normal appearance. HENT: Head: Normocephalic and atraumatic. Eyes: Conjunctiva/sclera: Conjunctivae normal. Neck: Thyroid: No thyroid mass or thyromegaly. Cardiovascular: Rate and Rhythm: Normal rate. Pulmonary: Effort: Pulmonary effort is normal. Abdominal: General: There is no distension. Tenderness: There is no abdominal tenderness. There is no right CVA tenderness, left CVA tenderness or guarding. Skin: General: Skin is warm and dry. Comments: Tanned skin versus jaundice. Neurological: General: No focal deficit present. Mental Status: He is alert and oriented to person, place, and time. 1. Calculus of kidney (N20.0) 2. Gross hematuria (R31.0) - Concern for gross hematuria noted since Sunday, described as red urine with no associated pain, dysuria, or urinary frequency. - Differential diagnosis includes possible renal calculi, urinary tract infection, or renal injury. Increased bilirubin in urine at OSH, will check labs today including liver function tests - Ordered urinalysis to check for infection. - Ordered CBC to assess for anemia, infection and CMP to evaluate renal and liver function, glucose. - Referred to urology for further evaluation and management. - Advised patient to present to the emergency department if hematuria significantly increases. Jhkiw-kz-fdyx urinalysis at outside hospital showed large amount of bilirubin, presence of ketones and protein, trace of blood. Urine testing in the office today showed glucose bilirubin ketones protein and urobilinogen. Further lab testing shows significantly elevated liver enzymes and bilirubin, further workup needed for liver to include imaging and lab work. Imaging and labwork today if possible. ER for any severe or concerning symptoms. Discussed with PCP. 3. Family history of renal cancer (Z80.51) - Patient's twin brother had a nephrectomy within the past year due to renal cancer. - Discussed the potential need for further workup given family history. Awilda Mattson APRN.TEAMSITE DEVELOPER ADDENDUM August 15, 2024 Lab work indicates liver problem. Will workup hyperbilirubinemia with elevated liver enzymes. Latest Ref Rng 01/10/2024 08/14/2024 WBC 3.70 - 11.00 k/uL 5.79 7.30 RBC 4.20 - 6.00 m/uL 5.04 5.01 Hemoglobin 13.0 - 17.0 g/dL 16.3 16.2 Hematocrit 39.0 - 51.0 % 49.1 47.9 MCV 80.0 - 100.0 fL 97.4 95.6 MCH 26.0 - 34.0 pg 32.3 32.3 MCHC 30.5 - 36.0 g/dL 33.2 33.8 RDW-CV 11.5 - 15.0 % 12.7 13.2 Platelet Count 150 - 400 k/uL 137 (L) 184 MPV 9.0 - 12.7 fL 10.3 11.3 Neut% % 67.9 74.1 Abs Neut (ANC) 1.45 - 7.50 k/uL 3.93 5.40 Lymph% % 18.5 10.8 Abs Lymph 1.00 - 4.00 k/uL 1.07 0.79 (L) [place]% % 8.6 10.3 Abs [place] <0.87 k/uL 0.50 0. (more content not included)... Normal [facility] Comprehensive metabolic 2000 panelon 08-14-2024 Albumin [Mass/Vol] 4.2 g/dL Normal 3.9-4.9 [facility] Comment on above: Order Comment: Speci men Type: BLOOD SPECIMENOrdering Facility: [facility] Address: [address] [place] [address] Performed By: #### 2 4323-8 ####[facility] [id number] [place] [address] [place] ALP [Catalytic activity/Vol] 303 U/L High 38-113 [facility] Comment on above: Order Comment: Speci men Type: BLOOD SPECIMENOrdering Facility: [facility] Address: [address] [place] [address] Performed By: #### 2 4323-8 ####[facility] [id number] [place] [address] [place] ALT [Catalytic activity/Vol] 920 U/L High 10-54 [facility] Comment on above: Order Comment: Speci men Type: BLOOD SPECIMENOrdering Facility: [facility] Address: [address] [place], [place] [address] Performed By: #### 2 4323-8 ####[facility] [id number] [facility] [address] [place] [address] [place] Anion gap [Moles/Vol] 13 mmol/L Normal 8-15 [facility] Comment on above: Order Comment: Speci men Type: BLOOD SPECIMENOrdering Facility: [facility] Address: [address] [place], [place] [address] Performed By: #### 2 4323-8 ####[facility]CLIA [id number] [address] [place] [address] [place] AST [Catalytic activity/Vol] 393 U/L High 14-40 [facility] Comment on above: Order Comment: Speci men Type: BLOOD SPECIMENOrdering Facility: [facility] Address: [address] [place], [place] [address] Performed By: #### 2 4323-8 ####[facility] [id number] [address] [place] [address] [place] Bilirubin [Mass/Vol] 4.7 mg/dL High 0.2-1.3 [facility] Comment on above: Order Comment: Speci men Type: BLOOD SPECIMENOrdering Facility: [facility] Address: [address] [place], [place] [address] Performed By: #### 2 4323-8 ####[facility]IA [id number] [facility] [address] [place] [address] [place] Calcium [Mass/Vol] 9.8 mg/dL Normal 8.5-10.2 [facility] Comment on above: Order Comment: Speci men Type: BLOOD SPECIMENOrdering Facility: [facility] Address: [address] [place], [place] [address] Performed By: #### 2 4323-8 ####[facility]CLIA [id number] [address] [address] [place] Chloride [Moles/Vol] 101 mmol/L Normal 98-107 [facility] Comment on above: Order Comment: Speci men Type: BLOOD SPECIMENOrdering Facility: [facility] Address: [address] [place] [address] Performed By: #### 2 4323-8 ####[facility]CLIA [id number] [place] [id number] [place] CO2 [Moles/Vol] 25 mmol/L Normal 22-30 [facility] Comment on above: Order Comment: Speci men Type: BLOOD SPECIMENOrdering Facility: [facility] Address: [address] [place] [address] Performed By: #### 2 4323-8 ####[facility] LABIA [id number] [address] [place] Creatinine [Mass/Vol] 1.08 mg/dL Normal 0.73-1.22 [facility] Comment on above: Order Comment: Speci men Type: BLOOD SPECIMENOrdering Facility: [facility] Address: [address] [place] [address] Performed By: #### 2 4323-8 ####[facility] LABIA [id number] [address] Creatinine and Glomerular filtration rate.predicted panel (S/P/Bld) 74 mL/min/1.73m??? Normal >=60 [facility] Comment on above: Order Comment: Speci men Type: BLOOD SPECIMENOrdering Facility: [facility] Address: [address] [place] [address] Result Comment: Abigail mated Glomerular Filtration Rate (eGFR) is calculated using the 2020 CKD-EPI creatinine equation. This equation utilizes serum creatinine, sex, and age as parameters. The creatinine assay has traceable calibration to isotope dilution-mass spectrometry. Refer to KDIGO guidelines for clinical interpretation. In patients with unstable renal function, e.g. those with acute kidney injury, the eGFR may not accurately reflect actual GFR. Performed By: #### 2 4323-8 ####[facility] LABIA [id number] [place] [address] [place] Glucose [Mass/Vol] 115 mg/dL High 74-99 [facility] Comment on above: Order Comment: Miltoni men Type: BLOOD SPECIMENOrdering Facility: [facility] Address: [address] [place] [address] Result Comment: The [place] Diabetes Association (ADA) provides guidance for cutoff values for fasting glucose and random glucose. The ADA defines fasting as no caloric intake for at least 8 hours. Fasting plasma glucose results between 100 to 125 mg/dL indicate increased risk for diabetes (prediabetes). Fasting plasma glucose results greater than or equal to 126 mg/dL meet the criteria for diagnosis of diabetes. In the absence of unequivocal hyperglycemia, results should be confirmed by repeat testing. In a patient with classic symptoms of hyperglycemia or hyperglycemic crisis, random plasma glucose results greater than or equal to 200 mg/dL meet the criteria for diagnosis of diabetes. Reference: Standards of Medical Care in Diabetes 2016, [place] Diabetes Association. Diabetes Care. 2016.39(Suppl 1). Performed By: #### 2 4323-8 ####[facility] LABIA [id number] [place] [id number] [place] Potassium [Moles/Vol] 4.0 mmol/L Normal 3.7-5.1 [facility] Comment on above: Order Comment: Miltoni men Type: BLOOD SPECIMENOrdering Facility: [facility] Address: [address] [place] [address] Performed By: #### 2 4323-8 ####[facility] LABIA [id number] [place] [id number] [place] Protein [Mass/Vol] 7.1 g/dL Normal 6.3-8.0 [facility] Comment on above: Order Comment: Celso men Type: BLOOD SPECIMENOrdering Facility: [facility] Address: [address] [place] [address] Performed By: #### 2 4323-8 ####[facility] LABCLIA [id number] [place] [id number] [place] Sodium [Moles/Vol] 139 mmol/L Normal 136-144 [facility] Comment on above: Order Comment: Speci men Type: BLOOD SPECIMENOrdering Facility: [facility] Address: [address] [place] [address] Performed By: #### 2 4323-8 ####[facility] LABIA [id number] [place] [address] [place] Urea nitrogen [Mass/Vol] 18 mg/dL Normal 9-24 [facility] Comment on above: Order Comment: Speci men Type: BLOOD SPECIMENOrdering Facility: [facility] Address: [address] [place] [address] Performed By: #### 2 4323-8 ####[facility] [id number] [place] [id number] [place] CNOVon 07-28-2024 CNOV Office Visit (COLLIN ) -- CHLOÉ GUTIERREZ ([id number]) 1955 M Date Time Provider Department 07/28/24 8:00 AM ARLYN CRUZ During your visit today, we recorded the following information about you: Temperature 97.6 degrees Arlyn Cruz MD 07/28/2024 8:15 AM Signed FOLLOW UP VISIT NAME: Chloé Torre [facility] NO.: [id number] DATE OF SERVICE: 07/28/2024 : 1955 REFERRING PHYSICIAN: ASHWINI Carter is s/p laparoscopic bilateral inguinal hernia done by Dr. Navarro on 07/16/2024. He denies any problems, some discomfort in the area but improving over time. VITALS: Temperature 36.4 ?C (97.6 ?F), temperature source Temporal. On examination, abdomen is soft and benign Wounds healing well without evidence of infection No hernia recurrence noted. Testicles in normal anatomical position. Assessment IMPRESSION: s/p laparoscopic bilateral inguinal hernia repair PLAN: Wound care instructions given Patient is instructed to make an appointment to return to clinic if any worsening signs/symptoms. Patient will return to PCP for medical care. Patient acknowledges above. Diagnoses: (Z98.890, Z87.19) Status post laparoscopic hernia repair (primary encounter diagnosis) I have confirmed and edited as necessary, the PFSH and ROS obtained by others. _ Arlyn Cruz MD Allergies As of Date: 07/28/2024 (No Known Allergies) Date Reviewed: 07/28/2024 Reviewed by: Audrey Lancaster LPN - Fully Assessed Reason for Visit: Follow Up [171] Primary Visit Diagnosis:Status post laparoscopic hernia repair [Z98.890, Z87.19] Prescriptions as of 07/28/2024 - amLODIPine (NORVASC) 2.5 mg tablet Take 1 tablet by mouth once daily. Problem List As Of Date 07/28/2024 Noted Resolved Primary hypertension [I10] 08/30/2007 Mixed hyperlipidemia [E78.2] 09/02/2007 CALCULUS OF KIDNEY [N20.0] 10/05/2008 Tobacco use disorder [F17.200] 10/28/2008 12/25/2012 Encounter Status:Closed by ARLYN CRUZ on 07/28/24 Normal [facility] ANES POSTPROC EVALon 025 ANES POSTPROC EVAL HNO ID: [id number] Author: SURYA TREVINO MD Service: Anesthesiology Author Type: Anesthesiologist Type: Anesthesia Postprocedure Evaluation Filed: 07/16/2024 12:51 Note Text: POST ANESTHESIA EVALUATION NOTE : 1955 Procedure Summary Date: 07/16/24 Room / Location: [place] [address] / [place] Anesthesia Start: 731 Anesthesia Stop: 907 Procedure: LAPAROSCOPIC HERNIORRHAPHY, INGUINAL INITIAL (Left: Abdomen) Diagnosis: Left inguinal hernia (Left inguinal hernia [K40.90]) Surgeons: Long Navarro MD Responsible Provider: Surya Trevino MD Anesthesia Type: general ASA Status: 2 Anesthesia Type: general Airway Type: ETT Last Vitals Vitals Value Taken Time BP 134/82 07/16/24 1017 Temp 36.5 ?C (97.7 ?F) 07/16/24 0900 HR SpO2 59 07/16/24 0900 Resp 20 07/16/24 1010 SpO2 96 % 07/16/24 1056 Vitals shown include unfiled device data. Post Anesthesia Patient Status Patient Evaluation: PACU. PACU/ICU Patient Condition: stable. Anticipated Disposition: phase 2 then home. Neurological Status: aware and responsive. Pulmonary Status: breathing comfortably on room air Airway Control: returned to baseline unsupported. Cardiovascular Status: stable. Pain Management: clinically adequate - multimodal analgesia pain management approach Postoperative Hydration: acceptable. Intraoperative Events: no significant anesthesia events Recommendation: continue current plan of care. Anesthesia Observations No Documentation SIGNATURE: Surya Trevino MD PATIENT NAME: Chloé Gutierrez DATE: July 16, 2024 TIME: 12:51 PM CSN: [id number] [facility] ANES PRE-OPon 07-16-2024 ANES PRE-OP HNO ID: [id number] Author: SURYA TREVINO MD Service: Anesthesiology Author Type: Anesthesiologist Type: Anesthesia Preprocedure Evaluation Filed: 07/16/2024 07:04 Note Text: ANESTHESIOLOGY DAY OF SURGERY NOTE : 1955 Procedure Information Date/Time: 07/16/24729 Procedure: LAPAROSCOPIC HERNIORRHAPHY, INGUINAL INITIAL (Left: Abdomen) Location: [place] [address] / [place] Surgeons: Long Navarro MD Estimated body mass index is 29.05 kg/m? as calculated from the following: Height as of this encounter: 160 cm (5' 3). Weight as of this encounter: 74.4 kg (164 lb). Most recent hematocrit and potassium results: Hematocrit 49.1 01/10/2024 Potassium 4.1 01/10/2024 Relevant Problems CARDIO (+) Primary hypertension -RENAL (+) Calculus of kidney I - PHYSICAL EVALUATION AIRWAY Patient intubated: No. Mallampati: II. TM distance: >3 FB. Neck ROM: full ROM without neurological symptoms. Mouth opening: adequate. Short neck: no. Thick neck: no DENTAL Dental findings: teeth intact and poor dentition. Additional exam findings: no II - ANESTHESIA PLAN ASA Score: 2 Anesthetic Plan: general Airway type: ETT NPO Status: adequate Anesthetic plan additional comments: recent sinsus darinage. Beta Manohar Monitoring Plan Monitoring plan: Standard ASA. Post Procedure Analgesic Plan Postoperative analgesic plan: parenteral or oral opioids and multimodal analgesia. Patient / Surrogate agrees to blood products: yes DNR status not reviewed with patient and/or family prior to surgery. Significant changes in the patient condition since the History and Physical, not otherwise documented in primary service progress note: no. Potential Anesthesia issues that may suggest increased risk of complications or contraindication to planned procedure: none. Vitals Value Taken Time BP 167/92 07/16/24 0632 Pulse 66 07/16/24 0632 Resp 15 07/16/24 0632 Temp 36.6 ?C (97.9 ?F) 07/16/24 0632 SpO2 98 % 07/16/24 0632 Facility-Administered Medications as of 07/16/2024 Medication Dose Route Frequency - lidocaine (PF) 10 mg/mL (1 %) 1-2 mg injection (XYLOCAINE) 0.1-0.2 mL INTRADERMAL PRN - lactated ringers iv infusion 5-30 mL/hr INTRAVENOUS CONTINUOUS - NaCl 0.9% iv flush bag 20 mL INTRAVENOUS PRN - ceFAZolin iv piggyback 2 g in D5W (iso-osmotic) 100 mL (ANCEF) 2 g INTRAVENOUS Pre-Op Once - [COMPLETED] acetaminophen 1,000 mg tab(s) (TYLENOL) 1,000 mg ORAL Pre-Op Once - [COMPLETED] promethazine 12.5 mg tab(s) (PHENERGAN) 12.5 mg ORAL Pre-Op Once - lactated ringers iv infusion 30 mL/hr INTRAVENOUS CONTINUOUS Outpatient Medications as of 07/16/2024 Medication Sig - amLODIPine (NORVASC) 2.5 mg tablet Take 1 tablet by mouth once daily. I have interviewed and examined the patient. I have reviewed the medical record and/or the pre-anesthesia evaluation, pertinent labs, and test results. This contains updated information obtained within 48 hours of Surgery/Procedure. SIGNATURE: Surya Trevino MD PATIENT NAME: Chloé Gutierrez DATE: July 16, 2024 TIME: 7:03 AM CSN: [id number] Normal [facility] HISTORY PHYSICALon HISTORY PHYSICAL HNO ID: [id number] Author: LONG NAVARRO MD Service: General Surgery Author Type: Physician Type: H&P Filed: 07/16/2024 07:08 Note Text: HISTORY AND PHYSICAL Chloé Gutierrez 1955 REFERRING PHYSICIAN: No ref. provider found CHIEF COMPLAINT: left inguinal hernia HPI: The patient is a 69 year old male presents with left inguinal hernia. He has noted this for about a few weeks. He notes a bulge in the area. He denies previous left inguinal hernia repair, he had previous right inguinal hernia repair. He does some heavy lifting occasionally. He denies obstructive gastrointestinal or urinary symptoms. He denies history of incarceration. PAST MEDICAL HISTORY PAST MEDICAL HISTORY Diagnosis Date Diverticulosis of colon (without mention of hemorrhage) H/O lithotripsy 01/07/2014 EXTRACORPOREAL SHOCKWAVE LITHOTRIPSY Hypertension, unspecified type Internal hemorrhoids without mention of complication Macular degeneration Wet in right eye, Dx in both for maculaar degeneration Other and unspecified hyperlipidemia 09/02/2007 LDL 160, HDL 58, TG 68 in 5-08: consider meds if not successful with wt loss at follow up PAST SURGICAL HISTORY PAST SURGICAL HISTORY Procedure Laterality Date COLONOSCOPY FLX DX W/COLLJ SPEC WHEN PFRMD 02/24/09 LITHOTRIPSY EXTRACORP SHOCK WAVE(ESWL) 01/07/14 RPR 1ST INGUN HRNA AGE 5 YRS/> REDUCIBLE as Hernia repair, inguinal RPR UMBILICAL HERNIA < 5 YRS REDUCIBLE as Hernia repair, umbilical <5yr CURRENT MEDICATIONS Current Outpatient Medications Medication Sig amLODIPine (NORVASC) 2.5 mg tablet Take 1 tablet by mouth once daily. No current facility-administered medications for this visit. ALLERGIES: Patient has no known allergies. PERSONAL HISTORY: SOCIAL HISTORY Social History Tobacco Use Smoking status: Never Smokeless tobacco: Former Types: Snuff Quit date: 04/23/2008 Vaping Use Vaping status: Never Used Substance Use Topics Alcohol use: Yes Alcohol/week: 14.0 standard drinks of alcohol Types: 14 Cans of beer per week Comment: 2 beers per day Drug use: Never FAMILY HISTORY FAMILY HISTORY Problem Relation Age of Onset Heart Mother irragular beat Hypertension Mother Kidney Cancer Mother Prostate Cancer Father 1999 other (Heat condition) Father No Known Problems Sister No Known Problems Sister Kidney Cancer Brother other (Kidney removed) Brother Psoriasis Brother No Known Problems Brother Psoriasis Brother other (Heart condition) Brother other (Valve replaced) Brother No Ocular Disease No Family History REVIEW OF SYSTEMS: General: The patient denies fatigue, denies weight loss, denies weight gain, denies feeling hot, and denies feelings of cold. Eyes: The patient denies glaucoma, denies eye injury/surgery, wears glasses or contacts. Ear/Nose/Throat: The patient denies allergies, denies hayfever, denies ear infections, and denies bloody noses. Cardiovascular: The patient denies chest pain, denies heart disease, notes high blood pressure,denies cardiac stent, denies prior heart attack, denies irregular heart beat, notes high cholesterol, denies poor circulation, denies heart failure, other cardiac issues, denies claudication, denies cold feet, denies peripheral arterial stent. Respiratory: The patient denies tuberculosis, denies pneumonia, notes frequent cough, denies pulmonary embolism, denies shortness of breath, and denies coughing up blood. Gastrointestinal: The patient denies difficulty swallowing, denies acid reflux, denies ulcers, denies vomiting, denies jaundice/hepatitis, denies gallbladder problems, denies black or tarry stools, denies hemorrhoids, denies bleeding from rectum, denies diverticulitis, denies constipation, denies diarrhea, denies loss of stool control, and notes hernias. Kidney/Bladder: The patient notes kidney stones, denies urine infections, and denies bloody urine. Skin: The patient denies a history of skin cancer, denies bleeding/changing moles, and denies a history of skin rash. Neurologic: The patient denies a history of epilepsy/convulsions, denies headaches, denies head/spinal injuries, and denies stroke/TIA. Psychiatric: The patient denies psychiatric medications, denies depression, and denies voices, denies substance abuse. Endocrine: The patient denies thyroid disorders, denies diabetes, and denies hormonal problems. Hematologic: The patient denies a history of bruising, denies bleeding, and denies anemia, denies blood clots. Infections: The patient notes a history of measles and mumps, denies rheumatic fever, and denies sexually transmitted diseases. Musculoskeletal: The patient denies back pain/injury, denies back problems, denies sciatica, denies knee/foot trouble, denies arthritis, or denies gout. PHYSICAL EXAMINATION: General: The patient is 69 year old male, well nourished, well hydrated in no acute dis (more content not included)... [facility] OPERATIVE NOon 07-16-2024 OPERATIVE NO HNO ID: [id number] Author: LONG NAVARRO MD Service: General Surgery Author Type: Physician Type: Operative Report Filed: 07/16/2024 08:49 Note Text: OPERATIVE/PROCEDURE REPORT LOG ID: [id number] SURGERY/PROCEDURE DATE: 07/16/2024 INCISION/PROCEDURE START TIME: 8:02 AM INCISION CLOSE/PROCEDURE END TIME: 8:48 AM SURGEON(S)/PROCEDURALIST(S ) AND BUILDING APPRAISER(S): Surgeons and Role: * Long Navarro MD - Primary Physician Muck Miner: Latosha Tena PA-C SURGERY/PROCEDURE(S): Left inguinal hernia (3 cm to 10 CM) ANESTHESIA: General SURGERY/PROCEDURE DETAILS: Patient was brought in the operating room. Placed in the supine position. Under excellent general anesthetic a Segura catheter was placed the abdomen was sterilely prepped and draped in the usual fashion. Local was injected supraumbilically. Dissection was carried down to the fascia the fascia grasped with a Herminia. Veress needle was placed inside the abdomen the abdomen was insufflated to 15 torr. Patient was placed in the headdown position a #5 trocar was placed in to the right of the 1012 trocar I used the son incision took down quite a few adhesions from his previous umbilical surgery as an infant. I then placed another #5 trocar on the left side. Patient was placed in the headdown rotated to the right position I scored the peritoneum on the left dissected down to the pubic tubercle then dissected laterally identifying the cord and vessel structures and dissecting and indirect inguinal hernia free from them. I then dissected further laterally. I fashioned a 10 x 15 ProGrip mesh into the wound it laid completely flat. I then reperitonealized the area covering the mesh completely. Ilioinguinal nerve block was then performed. I inspected the right side no hernia was identified. I remove the trocars under direct visualization given the stasis was noted. Close the fascia the umbilical port with a [id number] stitch of 0 Vicryl. Skin incisions were closed with subcuticular stitches of 4-0 Monocryl. Steri-Strips were applied sterile dressings were applied and the patient tolerated the procedure well. Latosha Tena PA-C was my event marketing assistant. She assisted with retraction, visualization and performed skin closure. No additional surgeons or qualified residents were available. PRE-OP/PRE-PROCEDURE DIAGNOSIS: Left inguinal hernia (3 cm to 10 cm) POST-OP/POST-PROCEDURE DIAGNOSIS: Same as Preop ESTIMATED BLOOD LOSS: < 20 mls SPECIMENS: None IMPLANTABLE DEVICES: Implant Name Type Inv. Item Serial No. Artist'S Model Lot No. LRB No. Used Action MESH PROGRIP RUTH PET [id number] SURGICAL SELF FIXATE FLAT SHEET HERNIA STERILE - [id number] Mesh MESH PROGRIP RUTH PET [id number] SURGICAL SELF FIXATE FLAT SHEET HERNIA STERILE [employer] [id number] Left 1 Implanted DRAINS: None COMPLICATIONS: None CLOSURE TECHNIQUE: Primary PARTICIPATION IN SURGERY/PROCEDURE: I/primary surgeon/proceduralist performed the procedure with assistance. SIGNATURE: Long Navarro III, MD PATIENT NAME: Chloé Gutierrez DATE: July 16, 2024 TIME: 8:44 AM [facility] 06-27-2024 [facility] Telephone (PLACIDOS) -- CHLOÉ GUTIERREZ ([id number]) 1955 M Date Time Provider Department 06/27/24 LONG NAVARRO During your visit today, we recorded the following information about you: Alicja Sadler 06/27/2024 9:13 AM [facility]igned [facility] Allergies As of Date: 06/27/2024 (No Known Allergies) Date Reviewed: 06/23/2024 Reviewed by: Audrey Lancaster LPN - Fully Assessed Prescriptions as of 07/16/2024 - oxyCODONE-acetaminophen (PERCOCET) 5-325 mg tablet Take 1 tablet by mouth every 6 hours as needed for up to 5 days. - amLODIPine (NORVASC) 2.5 mg tablet Take 1 tablet by mouth once daily. Problem List As Of Date 06/27/2024 Noted Resolved Primary hypertension [I10] 08/30/2007 Mixed hyperlipidemia [E78.2] 09/02/2007 CALCULUS OF KIDNEY [N20.0] 10/05/2008 Tobacco use disorder [F17.200] 10/28/2008 12/25/2012 Encounter Status:Closed by ALICJA SADLER on 07/16/24 [facility] Telephone (EDWIGEhappyviewLaura) -- CHLOÉ GUTIERREZ ([id number]) 1955 M Date Time Provider Department 06/27/24 LONG NAVARRO During your visit today, we recorded the following information about you: Allergies As of Date: 06/27/2024 (No Known Allergies) Date Reviewed: 06/23/2024 Reviewed by: Audrey Lancaster LPN - Fully Assessed Reason for Visit: Pre-op instructions [Other] Cmt: Pre-Operative instructions for surgery at [facility] on 07/16/2024 Prescriptions as of 06/27/2024 - amLODIPine (NORVASC) 2.5 mg tablet Take 1 tablet by mouth once daily. Problem List As Of Date 06/27/2024 Noted Resolved Primary hypertension [I10] 08/30/2007 Mixed hyperlipidemia [E78.2] 09/02/2007 CALCULUS OF KIDNEY [N20.0] 10/05/2008 Tobacco use disorder [F17.200] 10/28/2008 12/25/2012 Encounter Status:Closed by ANDREINA GARCIAS on 06/27/24 [facility] CNOVon 06-23-2024 CNOV Office Visit (GENSWS ) -- CHLOÉ GUTIERREZ ([id number]) 1955 M Date Time Provider Department 06/23/24 11:45 AM ARLYN CRUZ During your visit today, we recorded the following information about you: Temperature Pulse Respiration Blood pressure 97.8 degrees 74/minute 14/minute 152/98 Weight Height 74.4 kg 1.614 m Audrey Lancaster LPN 06/23/2024 12:45 PM Signed REVIEW OF SYSTEMS: General: The patient denies fatigue, denies weight loss, denies weight gain, denies feeling hot, and denies feelings of cold. Eyes: The patient denies glaucoma, denies eye injury/surgery, wears glasses or contacts. Ear/Nose/Throat: The patient denies allergies, denies hayfever, denies ear infections, and denies bloody noses. Cardiovascular: The patient denies chest pain, denies heart disease, notes high blood pressure,denies cardiac stent, denies prior heart attack, denies irregular heart beat, notes high cholesterol, denies poor circulation, denies heart failure, other cardiac issues, denies claudication, denies cold feet, denies peripheral arterial stent. Respiratory: The patient denies tuberculosis, denies pneumonia, notes frequent cough, denies pulmonary embolism, denies shortness of breath, and denies coughing up blood. Gastrointestinal: The patient denies difficulty swallowing, denies acid reflux, denies ulcers, denies vomiting, denies jaundice/hepatitis, denies gallbladder problems, denies black or tarry stools, denies hemorrhoids, denies bleeding from rectum, denies diverticulitis, denies constipation, denies diarrhea, denies loss of stool control, and notes hernias. Kidney/Bladder: The patient notes kidney stones, denies urine infections, and denies bloody urine. Skin: The patient denies a history of skin cancer, denies bleeding/changing moles, and denies a history of skin rash. Neurologic: The patient denies a history of epilepsy/convulsions, denies headaches, denies head/spinal injuries, and denies stroke/TIA. Psychiatric: The patient denies psychiatric medications, denies depression, and denies voices, denies substance abuse. Endocrine: The patient denies thyroid disorders, denies diabetes, and denies hormonal problems. Hematologic: The patient denies a history of bruising, denies bleeding, and denies anemia, denies blood clots. Infections: The patient notes a history of measles and mumps, denies rheumatic fever, and denies sexually transmitted diseases. Musculoskeletal: The patient denies back pain/injury, denies back problems, denies sciatica, denies knee/foot trouble, denies arthritis, or denies gout. When was patient's last Mammogram screening? N/A Last Colonoscopy: 02/24/2009 JENNIFER Denise, Arlyn Cadena MD 06/23/2024 12:45 PM Signed HISTORY AND PHYSICAL Chloé Gutierrez 1955 REFERRING PHYSICIAN: No ref. provider found CHIEF COMPLAINT: left inguinal hernia HPI: The patient is a 69 year old male presents with left inguinal hernia. He has noted this for about a few weeks. He notes a bulge in the area. He denies previous left inguinal hernia repair, he had previous right inguinal hernia repair. He does some heavy lifting occasionally. He denies obstructive gastrointestinal or urinary symptoms. He denies history of incarceration. PAST MEDICAL HISTORY Diagnosis Date Diverticulosis of colon (without mention of hemorrhage) H/O lithotripsy 01/07/2014 EXTRACORPOREAL SHOCKWAVE LITHOTRIPSY Hypertension, unspecified type Internal hemorrhoids without mention of complication Macular degeneration Wet in right eye, Dx in both for maculaar degeneration Other and unspecified hyperlipidemia 09/02/2007 LDL 160, HDL 58, TG 68 in 5-08: consider meds if not successful with wt loss at follow up PAST SURGICAL HISTORY Procedure Laterality Date COLONOSCOPY FLX DX W/COLLJ SPEC WHEN PFRMD 02/24/09 LITHOTRIPSY EXTRACORP SHOCK WAVE(ESWL) 01/07/14 RPR 1ST INGUN HRNA AGE 5 YRS/> REDUCIBLE as Hernia repair, inguinal RPR UMBILICAL HERNIA < 5 YRS REDUCIBLE as Hernia repair, umbilical <5yr Current Outpatient Medications Medication Sig amLODIPine (NORVASC) 2.5 mg tablet Take 1 tablet by mouth once daily. No current facility-administered medications for this visit. ALLERGIES: Patient has no known allergies. PERSONAL HISTORY: Social History Tobacco Use Smoking status: Never Smokeless tobacco: Former Types: Snuff Quit date: 04/23/2008 Vaping Use Vaping status: Never Used Substance Use Topics Alcohol use: Yes Alcohol/week: 14.0 standard drinks of alcohol Types: 14 Cans of beer per week Comment: 2 beers per day Drug use: Never FAMILY HISTORY Problem Relation Age of Onset Heart Mother irragular beat Hypertension Mother Kidney Cancer Mother Prostate Cancer Father 1998 other (Heat condition) Father No Known Problems Sister No Know (more content not included)... Normal [facility] CBC W Auto Differential pane l (Bld)on 01-10-2024 Basophils (Bld) [#/Vol] 0.04 10*3/uL Normal <0.11 [facility] Comment on above: Order Comment: Speci men Type: BLOOD SPECIMENOrdering Facility: [facility] Address: [address] [place] [address] Performed By: #### 5 7021-8 ####[facility] LABCLIA [id number] [place] [address] [place] Basophils/100 WBC (Bld) 0.7 % Normal [facility] Comment on above: Order Comment: Speci men Type: BLOOD SPECIMENOrdering Facility: [facility] Address: [address] [place] [address] Performed By: #### 5 7021-8 ####[facility] LABCLIA [id number] [place] [address] [place] Differential cell count method Nom (Bld) Auto Normal [facility] Comment on above: Order Comment: Speci men Type: BLOOD SPECIMENOrdering Facility: [facility] Address: [address] [place] [address] Performed By: #### 5 7021-8 ####[facility] LABCLIA [id number] [place] [address] [place] Eosinophils (Bld) [#/Vol] 0.22 10*3/uL Normal <0.46 [facility] Comment on above: Order Comment: Speci men Type: BLOOD SPECIMENOrdering Facility: [facility] Address: [address] [place] [address] Performed By: #### 5 7021-8 ####[facility] LABCLIA [id number] [place] [address] [place] Eosinophils/100 WBC (Bld) 3.8 % Normal [facility] Comment on above: Order Comment: Speci men Type: BLOOD SPECIMENOrdering Facility: [facility] Address: [address] [place] [address] Performed By: #### 5 7021-8 ####[facility] LABCLIA [id number] [place] [address] [place] Erythrocyte distribution width (RBC) [Ratio] 12.7 % Normal 11.5-15.0 [facility] Comment on above: Order Comment: Speci men Type: BLOOD SPECIMENOrdering Facility: [facility] Address: [address] [place] [address] Performed By: #### 5 7021-8 ####[facility] LABCLIA [id number] [place] [address] [place] Hematocrit (Bld) [Volume fraction] 49.1 % Normal 39.0-51.0 [facility] Comment on above: Order Comment: Speci men Type: BLOOD SPECIMENOrdering Facility: [facility] Address: [address] [place] [address] Performed By: #### 5 7021-8 ####[facility] LABCLIA [id number] [place] [address] [place] Hemoglobin (Bld) [Mass/Vol] 16.3 g/dL Normal 13.0-17.0 [facility] Comment on above: Order Comment: Speci men Type: BLOOD SPECIMENOrdering Facility: [facility] Address: [address] [place] [address] Performed By: #### 5 7021-8 ####[facility] LABCLIA [id number] [place] [address] [place] Immature granulocytes (Bld) [#/Vol] 0.03 10*3/uL Normal <0.10 [facility] Comment on above: Order Comment: Speci men Type: BLOOD SPECIMENOrdering Facility: [facility] Address: [address] [place] [address] Performed By: #### 5 7021-8 ####[facility] LABCLIA [id number] [place] [address] [place] Immature granulocytes/100 WBC (Bld) 0.5 % Normal [facility] Comment on above: Order Comment: Speci men Type: BLOOD SPECIMENOrdering Facility: [facility] Address: [address] [place] [address] Performed By: #### 5 7021-8 ####[facility] LABCLIA [id number] [place] [address] [place] Lymphocytes (Bld) [#/Vol] 1.07 10*3/uL Normal 1.00-4.00 [facility] Comment on above: Order Comment: Speci men Type: BLOOD SPECIMENOrdering Facility: [facility] Address: [address] [place] [address] Performed By: #### 5 7021-8 ####[facility] LABCLIA [id number] [place] [address] [place] Lymphocytes/100 WBC (Bld) 18.5 % Normal [facility] Comment on above: Order Comment: Speci men Type: BLOOD SPECIMENOrdering Facility: [facility] Address: [address] [place] [address] Performed By: #### 5 7021-8 ####[facility] LABIA [id number] [place] [address] [place] MCH (RBC) [Entitic mass] 32.3 pg Normal 26.0-34.0 [facility] Comment on above: Order Comment: Speci men Type: BLOOD SPECIMENOrdering Facility: [facility] Address: [address] [place] [address] Performed By: #### 5 7021-8 ####[facility] LABIA [id number] [place] [address] [place] MCHC (RBC) [Mass/Vol] 33.2 g/dL Normal 30.5-36.0 [facility] Comment on above: Order Comment: Speci men Type: BLOOD SPECIMENOrdering Facility: [facility] Address: [address] [place] [address] Performed By: #### 5 7021-8 ####[facility] LABIA [id number] [place] [address] [place] MCV (RBC) [Entitic vol] 97.4 fL Normal 80.0-100.0 [facility] Comment on above: Order Comment: Speci men Type: BLOOD SPECIMENOrdering Facility: [facility] Address: [address] [place] [address] Performed By: #### 5 7021-8 ####[facility] LABIA [id number] [place] [address] [place] Monocytes (Bld) [#/Vol] 0.50 10*3/uL Normal <0.87 [facility] Comment on above: Order Comment: Speci men Type: BLOOD SPECIMENOrdering Facility: [facility] Address: [address] [place] [address] Performed By: #### 5 7021-8 ####[facility] LABCLIA [id number] [address] [address] [place] Monocytes/100 WBC (Bld) 8.6 % Normal [facility] Comment on above: Order Comment: Speci men Type: BLOOD SPECIMENOrdering Facility: [facility] Address: [address] [place] [address] Performed By: #### 5 7021-8 ####[facility] LABCLIA [id number] [place] [address] [place] Neutrophils (Bld) [#/Vol] 3.93 10*3/uL Normal 1.45-7.50 [facility] Comment on above: Order Comment: Speci men Type: BLOOD SPECIMENOrdering Facility: [facility] Address: [address] [place] [address] Performed By: #### 5 7021-8 ####[facility] LABCLIA [id number] [place] [address] [place] Neutrophils/100 WBC (Bld) 67.9 % Normal [facility] Comment on above: Order Comment: Speci men Type: BLOOD SPECIMENOrdering Facility: [facility] Address: [address] [place] [address] Performed By: #### 5 7021-8 ####[facility] LABCLIA [id number] [place] [address] [place] Nucleated RBC (Bld) [#/Vol] 10*3/uL Normal <0.01 [facility] Comment on above: Order Comment: Speci men Type: BLOOD SPECIMENOrdering Facility: [facility] Address: [address] [place] [address] Performed By: #### 5 7021-8 ####[facility] LABCLIA [id number] [place] [id number] [place] Nucleated RBC/100 WBC (Bld) [Ratio] 0.0 /100 WBC Normal [facility] Comment on above: Order Comment: Speci men Type: BLOOD SPECIMENOrdering Facility: [facility] Address: [address] [place] [address] Performed By: #### 5 7021-8 ####[facility] LABCLIA [id number] [place] [address] [place] Platelet mean volume (Bld) [Entitic vol] 10.3 fL Normal 9.0-12.7 [facility] Comment on above: Order Comment: Speci men Type: BLOOD SPECIMENOrdering Facility: [facility] Address: [address] [place] [address] Performed By: #### 5 7021-8 ####[facility] LABIA [id number] [place] [address] [place] Platelets (Bld) [#/Vol] 137 10*3/uL Low 150-400 [facility] Comment on above: Order Comment: Speci men Type: BLOOD SPECIMENOrdering Facility: [facility] Address: [address] [place] [address] Performed By: #### 5 7021-8 ####[facility] LABIA [id number] [place] [address] [place] RBC (Bld) [#/Vol] 5.04 10*6/uL Normal 4.20-6.00 [facility] Comment on above: Order Comment: Speci men Type: BLOOD SPECIMENOrdering Facility: [facility] Address: [address] [place] [address] Performed By: #### 5 7021-8 ####[facility] LABIA [id number] [place] [address] [place] WBC (Bld) [#/Vol] 5.79 10*3/uL Normal 3.70-11.00 [facility] Comment on above: Order Comment: Speci men Type: BLOOD SPECIMENOrdering Facility: [facility] Address: [address] [place] [id number] Performed By: #### 5 7021-8 ####[facility] LABCLRIKY [id number] [facility] [id number] [id number] [place] CNOVon 01-10-2024 CNOV Office Visit (INTMWS ) -- GUTIERREZCHLOÉ PARIKH ([id number]) 1955 M Date Time Provider Department 01/10/24 8:00 AM AWILDA MATTSON INTMWS During your visit today, we recorded the following information about you: Pulse Respiration Blood pressure Weight 71/minute 16/minute 155/85 73.5 kg Awilda Mattson APRN.[employer] DEVELOPER 01/10/2024 8:49 AM Signed SUBJECTIVE: Depression Screening Never done Anxiety Screening Never done Shingrix Vaccine(1 of 2) Never done RSV Vaccine(1 - 1-dose 60+ series) Never done Pneumococcal Vaccine: 65+(1 of 1 - PCV) Never done Colorectal Cancer Screening due on 02/24/2019 Advance Directive Discussion due on 04/23/2023 Covid-19 Vaccine( - 2022-24 season) Never done Influenza Vaccine(1) due on 12/23/2023 [facility] Chloéguerrero Gutierrez is a 68 year old male.PMH significant for ACTIVE PROBLEM LIST Primary Hypertension Mixed Hyperlipidemia Calculus of Kidney Notes he is in his usual state of good health.Presents today for a routine visit. Last seen in office 08/2022. No recent fill of amlodipine noted in outside medication review. He notes he is in his usual state of good health. 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 Diet: Tries to eat healthy Exercise: active Weight: stable Notes chronic sinus congestion.. Notes two beers daily. Plans to decrease. Notes stuck on skin lesion left forearm. Notes small skin lesion above right eyebrow. Notes abdominal hernia unchanged, not incresed in size, not painful. History of childhood hernia surgery. Notes some decrease in vision right eye, has upcoming appointment with [facility] to check this. HTN: Notes occasionally feels odd, not quite off balance in the morning. Ran out of amlodipine, has not taken it for a while. Without report of headache, chest pain, palpitations, dyspnea, peripheral edema, orthopnea, fatigue and PND. Last 14 Encounter BP Readings: Date: BP: 01/10/2024 155/85 08/29/2022 142/90 08/08/2021 141/83[TruBP average[ 06/24/2021 152/92 03/15/2016 143/80 02/07/2016 130/84 01/05/2016 130/80 05/21/2015 136/88 07/21/2013 172/108 03/10/2013 122/84 01/15/2013 134/86 12/25/2012 132/94 12/22/2010 120/80 12/22/2008 140/76 Hyperlipidemia. His most recent lipid panels are: Cholesterol, Total (mg/dL) Date Value 03/13/2016 241 03/10/2013 214 Total Cholesterol, Nonfasting (mg/dL) Date Value 08/29/2022 233 HDL Cholesterol (mg/dL) Date Value 03/13/2016 69 03/10/2013 66 HDL Cholesterol, Nonfasting (mg/dL) Date Value 08/29/2022 69 LDL Cholesterol (mg/dL) Date Value 03/13/2016 152 03/10/2013 134 LDL Cholesterol, Nonfasting (mg/dL) Date Value 08/29/2022 138 Triglyceride (mg/dL) Date Value 03/13/2016 98 03/10/2013 68 Triglycerides, Nonfasting (mg/dL) Date Value 08/29/2022 129 Tobacco:former chewing. Quit ~10 years ago. Depression/ Anxiety: no current complaints No prostate complaints. Notes kidney stones a couple of times in the past, no current / recent. Daughter Kenzie William is healthcare POA [phone]. Review of Systems Constitutional: Negative. Respiratory: Negative. Cardiovascular: Negative. Endocrine: Negative. Objective BP 155/85 Pulse 71 Resp 16 Wt 73.5 kg (162 lb 0.6 oz) BMI 27.81 kg/m? Physical Exam Vitals and nursing note reviewed. Constitutional: Appearance: Normal appearance. HENT: Head: Normocephalic and atraumatic. Eyes: Conjunctiva/sclera: Conjunctivae normal. Comments: Right upper eyelid with extended lesion c/w skin tag vs xanthoma Neck: Thyroid: No thyroid mass or thyromegaly. Vascular: Normal carotid pulses. No JVD. Cardiovascular: Rate and Rhythm: Normal rate and regular rhythm. Pulses: Carotid pulses are 2+ on the right side and 2+ on the left side. Radial pulses are 2+ on the right side and 2+ on the left side. Heart sounds: Normal heart sounds. Pulmonary: Effort: Pulmonary effort is normal. Breath sounds: Normal breath sounds. Abdominal: General: Bowel sounds are normal. Palpations: Abdomen is soft. Hernia: A hernia (s/p periumbilical hernia repair, + hernia findings on exam, not painful) is present. Comments: exam c/w diastasis recti; not TTP Musculoskeletal: Right lower leg: No edema. Left lower leg: No edema. Skin: General: Skin is warm and dry. Comments: Stuck on appearance left forearm skin lesion flesh tone, tiny sebaceous cyst above right eyebrow. Neurological: General: No focal deficit present. Mental Status: He is alert and oriented to person, place, and time. ALLERGIES No Known Allergies MEDICATIONS amLODIPine (NORVASC) 2.5 mg tablet Take 1 tablet by mouth once daily. (Patient not taking: Reported on 01/10/2024) PAST MEDICAL HISTORY Diagnosis Date Diverticulosis of colon (without mention of hemorrha (more content not included)... Normal [facility] Comprehensive metabolic 2000 panelon 01-10-2024 Albumin [Mass/Vol] 4.5 g/dL Normal 3.9-4.9 [facility] Comment on above: Order Comment: Speci men Type: BLOOD SPECIMENOrdering Facility: [facility] Address: [address] [place] [address] Performed By: #### 2 4323-8, 89753-9 ####[facility] LABCLIA [id number] [facility] [id number] [address] [place] ALP [Catalytic activity/Vol] 72 U/L Normal 38-113 [facility] Comment on above: Order Comment: Speci men Type: BLOOD SPECIMENOrdering Facility: [facility] Address: [address] [place] [address] Performed By: #### 2 4323-8, 63416-7 ####[facility] LABCLIA [id number] [place] [address] [place] ALT [Catalytic activity/Vol] 14 U/L Normal 10-54 [facility] Comment on above: Order Comment: Speci men Type: BLOOD SPECIMENOrdering Facility: [facility] Address: [address] [place] [address] Performed By: #### 2 4323-8, 35023-8 ####[facility] LABCLIA [id number] [place] [address] [place] Anion gap [Moles/Vol] 11 mmol/L Normal 8-15 [facility] Comment on above: Order Comment: Speci men Type: BLOOD SPECIMENOrdering Facility: [facility] Address: [address] [place] [address] Performed By: #### 2 4323-8, 30014-5 ####[facility] LABCLIA [id number] [place] [address] [place] AST [Catalytic activity/Vol] 20 U/L Normal 14-40 [facility] Comment on above: Order Comment: Speci men Type: BLOOD SPECIMENOrdering Facility: [facility] Address: [address] [place] [address] Performed By: #### 2 4323-8, 47972-9 ####[facility] LABCLIA [id number] [place] [address] [place] Bilirubin [Mass/Vol] 0.6 mg/dL Normal 0.2-1.3 [facility] Comment on above: Order Comment: Speci men Type: BLOOD SPECIMENOrdering Facility: [facility] Address: [address] [place] [address] Performed By: #### 2 4323-8, 66772-4 ####[facility] LABCLIA [id number] [facility] [address] [address] [place] Calcium [Mass/Vol] 9.6 mg/dL Normal 8.5-10.2 [facility] Comment on above: Order Comment: Speci men Type: BLOOD SPECIMENOrdering Facility: [facility] Address: [address] [place], [place] [address] Performed By: #### 2 4323-8, 86762-1 ####[facility] LABCLIA [id number] [facility] [place] [address] [place] Chloride [Moles/Vol] 103 mmol/L Normal 98-107 [facility] Comment on above: Order Comment: Speci men Type: BLOOD SPECIMENOrdering Facility: [facility] Address: [address] [place] [address] Performed By: #### 2 4323-8, 30651-1 ####[facility] LABCLIA [id number] [facility] [place] [address] [place] CO2 [Moles/Vol] 26 mmol/L Normal 22-30 [facility] Comment on above: Order Comment: Speci men Type: BLOOD SPECIMENOrdering Facility: [facility] Address: [address] [place], [place] [address] Performed By: #### 2 4323-8, 36970-4 ####[facility] LABCLIA [id number] [facility] [place] [id number] [place] Creatinine [Mass/Vol] 1.14 mg/dL Normal 0.73-1.22 [facility] Comment on above: Order Comment: Speci men Type: BLOOD SPECIMENOrdering Facility: [facility] Address: [address] [place], [place] [id number] Performed By: #### 2 4323-8, 95456-7 ####[facility] LABCLIA [id number] [place] [address] [place] Creatinine and Glomerular filtration rate.predicted panel (S/P/Bld) 70 mL/min/1.73m??? Normal >=60 [facility] Comment on above: Order Comment: Celso loyd Type: BLOOD SPECIMENOrdering Facility: [facility] Address: [address] [place] [address] Result Comment: Abigail mated Glomerular Filtration Rate (eGFR) is calculated using the 2020 CKD-EPI creatinine equation. This equation utilizes serum creatinine, sex, and age as parameters. The creatinine assay has traceable calibration to isotope dilution-mass spectrometry. Refer to KDIGO guidelines for clinical interpretation. In patients with unstable renal function, e.g. those with acute kidney injury, the eGFR may not accurately reflect actual GFR. Performed By: #### 2 4323-8, 00471-9 ####[facility] LABCLIA [id number] [place] [address] [place] Glucose [Mass/Vol] 87 mg/dL Normal 74-99 [facility] Comment on above: Order Comment: Celso loyd Type: BLOOD SPECIMENOrdering Facility: [facility] Address: [address] [place] [address] Result Comment: The [place] Diabetes Association (ADA) provides guidance for cutoff values for fasting glucose and random glucose. The ADA defines fasting as no caloric intake for at least 8 hours. Fasting plasma glucose results between 100 to 125 mg/dL indicate increased risk for diabetes (prediabetes). Fasting plasma glucose results greater than or equal to 126 mg/dL meet the criteria for diagnosis of diabetes. In the absence of unequivocal hyperglycemia, results should be confirmed by repeat testing. In a patient with classic symptoms of hyperglycemia or hyperglycemic crisis, random plasma glucose results greater than or equal to 200 mg/dL meet the criteria for diagnosis of diabetes. Reference: Standards of Medical Care in Diabetes 2016, [place] Diabetes Association. Diabetes Care. 2016.39(Suppl 1). Performed By: #### 2 4323-8, 71813-3 ####[facility] LABCLIA [id number] [place] [id number] [place] Potassium [Moles/Vol] 4.1 mmol/L Normal 3.7-5.1 [facility] Comment on above: Order Comment: Speci men Type: BLOOD SPECIMENOrdering Facility: [facility] Address: [address] [place] [address] Performed By: #### 2 4323-8, 58093-6 ####[facility] LABCLIA [id number] [place] [address] [place] Protein [Mass/Vol] 7.2 g/dL Normal 6.3-8.0 [facility] Comment on above: Order Comment: Speci men Type: BLOOD SPECIMENOrdering Facility: [facility] Address: [address] [place] [address] Performed By: #### 2 4323-8, 16035-4 ####[facility] LABCLIA [id number] [place] [address] [place] Sodium [Moles/Vol] 140 mmol/L Normal 136-144 [facility] Comment on above: Order Comment: Speci men Type: BLOOD SPECIMENOrdering Facility: [facility] Address: [address] [place] [address] Performed By: #### 2 4323-8, 33860-4 ####[facility] LABCLIA [id number] [place] [address] [place] Urea nitrogen [Mass/Vol] 17 mg/dL Normal 9-24 [facility] Comment on above: Order Comment: Speci men Type: BLOOD SPECIMENOrdering Facility: [facility] Address: [address] [place] [address] Performed By: #### 2 4323-8, 21377-4 ####[facility] LABCLIA [id number] [place] [address] [place] Lipid 1996 panelon 4 Cholesterol [Mass/Vol] 250 mg/dL High <200 [facility] Comment on above: Order Comment: Speci men Type: BLOOD SPECIMENOrdering Facility: [facility] Address: [address] [place] [address] Result Comment: <200 mg/dL, Desirable 200-239 mg/dL, Borderline high >239 mg/dL, High Performed By: #### 2 4323-8, 13506-4 ####[facility] LABCLIA [id number] [place] [address] [place] Cholesterol in HDL [Mass/Vol] 55 mg/dL Normal >39 [facility] Comment on above: Order Comment: Speci men Type: BLOOD SPECIMENOrdering Facility: [facility] Address: [address] [place] [address] Result Comment: 40-5 9 mg/dL, Acceptable >59 mg/dL, High: Negative risk factor for coronary heart disease <40 mg/dL, Low: Positive risk factor for coronary heart disease Performed By: #### 2 4323-8, 76345-1 ####[facility] LABCLIA [id number] [place] [address] [place] Cholesterol in LDL [Mass/Vol] 182 mg/dL High <100 [facility] Comment on above: Order Comment: Speci men Type: BLOOD SPECIMENOrdering Facility: [facility] Address: [address] [place] [address] Result Comment: <100 mg/dL, Optimal 100-129 mg/dL, Near optimal/above optimal 130-159 mg/dL, Borderline high 160-189 mg/dL, High >189 mg/dL, Very high Secondary prevention optimal LDL Cholesterol levels are recommended to be < 70 mg/dL Performed By: #### 2 4323-8, 00596-6 ####[facility] LABCLIA [id number] [place] [address] [place] Cholesterol in LDL/Cholesterol in HDL [Mass ratio] 3.31 {ratio} High <2.54 [facility] Comment on above: Order Comment: Speci men Type: BLOOD SPECIMENOrdering Facility: [facility] Address: [address] [place] [address] Result Comment: Karyn mujica: 1. National Cholesterol Education Program ATP III Guideline At-A-Glance Quick Desk Reference: National Heart, Lung, and Blood [place]. National Institutes of Health. 2001: NIH Publication No. 01-3305. 2. An International Atherosclerosis Society position paper: global recommendations for the management of dyslipidemia: executive summary, Atherosclerosis. 2014: 232(2):410-413. Performed By: #### 2 4323-8, 19505-7 ####[facility] LABCLIA [id number] [place] [address] [place] Cholesterol in VLDL [Mass/Vol] 13 mg/dL Normal <30 [facility] Comment on above: Order Comment: Speci men Type: BLOOD SPECIMENOrdering Facility: [facility] Address: [address] [place] [address] Performed By: #### 2 4323-8, 00086-3 ####[facility] LABCLIA [id number] [place] [address] [place] Cholesterol non HDL [Mass/Vol] 195 mg/dL High <130 [facility] Comment on above: Order Comment: Miltoni evert Type: BLOOD SPECIMENOrdering Facility: [facility] Address: [address] [place] [address] Result Comment: <130 mg/dL, Optimal 130-159 mg/dL, Near optimal/above optimal 160-189 mg/dL, Borderline high 190-219 mg/dL, High >219 mg/dL, Very high Secondary prevention optimal non HDL Cholesterol levels are recommended to be <100 mg/dL Performed By: #### 2 4323-8, 41246-5 ####[facility] LABCLIA [id number] [place] [address] [place] Cholesterol.total/Chol esterol in HDL [Mass ratio] 4.55 {ratio} Normal <5.10 [facility] Comment on above: Order Comment: Miltoni men Type: BLOOD SPECIMENOrdering Facility: [facility] Address: [address] [place] [address] Performed By: #### 2 4323-8, 30192-5 ####[facility] LABCLIA [id number] [place] [address] [place] FASTING TIME 12 hrs Normal [facility] Comment on above: Order Comment: Speci men Type: BLOOD SPECIMENOrdering Facility: [facility] Address: [address] [place] [address] Performed By: #### 2 4323-8, 87016-6 ####[facility] LABCLIA [id number] [place] [address] [place] Triglyceride [Mass/Vol] 65 mg/dL Normal <150 [facility] Comment on above: Order Comment: Speci men Type: BLOOD SPECIMENOrdering Facility: [facility] Address: [address] [place] [address] Result Comment: <150 mg/dL, Normal 150-199 mg/dL, Borderline high 200-499 mg/dL, High >499 mg/dL, Very high Performed By: #### 2 4323-8, 31452-3 ####[facility] LABCLIA [id number] [place] [address] [place] OCT MACULA CIRRUS OU (BOTH E YES) [facility] Vital Signs Date Time Vital Sign Value Performing Clinician Facility 08-19-2024 09:00-0400 Body height 160 cm Holly Jorge MD Work Phone: [facility] 08-19-2024 09:00-0400 Body mass index (BMI) [Ratio] 27.81 kg/m2 Holly Jorge MD Work Phone: [facility] 08-19-2024 09:00-0400 Body weight 71.22 kg Holly Jorge MD [facility] [facility]-19-[facility]24 09:00-0400 Diastolic blood pressure 83 mm[Hg] Holly Jorge MD Work Phone: [facility] 08-19-2024 09:00-0400 Systolic blood pressure 146 mm[Hg] Holly Jorge MD Work Phone: [facility] 08-16-2024 16:26-0400 Body temperature 98.3 [degF] Awilda Mattson GENERAL ADJUSTER-C Work Phone: [facility] 08-16-2024 16:26-0400 Diastolic blood pressure 79 mm[Hg] Awilda Mattson GENERAL ADJUSTER-C Work Phone: [facility] 08-16-2024 16:26-0400 Heart rate 72 /min Awilda Mattson GENERAL ADJUSTER-C Work Phone: [facility] 08-16-2024 16:26-0400 Respiratory rate 16 /min Awilda Mattson GENERAL ADJUSTER-C Work Phone: [facility] 08-16-2024 16:26-0400 SaO2% (BldA) [Mass fraction] 96 % Awilda Mattson GENERAL ADJUSTER-C Work Phone: [facility] 08-16-2024 16:26-0400 Systolic blood pressure 144 mm[Hg] Awilda Mattson GENERAL ADJUSTER-C Work Phone: [facility] 08-16-2024 10:24-0400 Body height 160.02 cm Awilda Mattson GENERAL ADJUSTER-C Work Phone: [facility] 08-16-2024 10:24-0400 Body mass index (BMI) [Ratio] 28.1 kg/m2 Awilda Mattson GENERAL ADJUSTER-C Work Phone: [facility] 08-16-2024 10:24-0400 Body weight 72.16 kg Awilda Mattson GENERAL ADJUSTER-C Work Phone: [facility] 07-28-2024 08:03-0400 Body temperature 97.59 [degF] Arlyn Cruz MD Work Phone: [facility] 06-23-2024 11:34-0500 Body height 161.4 cm Arlyn Cruz MD Work Phone: [facility] 06-23-2024 11:34-0500 Body mass index (BMI) [Ratio] 28.56 kg/m2 Arlyn Cruz MD Work Phone: [facility] 06-23-2024 11:34-0500 Body temperature 97.81 [degF] Arlyn Cruz MD Work Phone: [facility] 06-23-2024 11:34-0500 Body weight 74.39 kg Arlyn Cruz MD Work Phone: [facility] 06-23-2024 11:34-0500 Diastolic blood pressure 98 mm[Hg] Arlyn Cruz MD Work Phone: [facility] Comment on above: Dr. Cruz notified- patient has not taken medication this morning. 06-23-2024 11:34-0500 Heart rate 74 /min Arlyn Cruz MD Work Phone: [facility] 06-23-2024 11:34-0500 Respiratory rate 14 /min Arlyn Cruz MD Work Phone: [facility] 06-23-2024 11:34-0500 SaO2% (BldA) [Mass fraction] 100 % Arlyn Cruz MD Work Phone: [facility] 06-23-2024 11:34-0500 Systolic blood pressure 152 mm[Hg] Arlyn Cruz MD Work Phone: [facility] Comment on above: Dr. Cruz notified- patient has not taken medication this morning. 01-10-2024 07:59-0400 Diastolic blood pressure 85 mm[Hg] Awilda Mattson RADIATOR FITTER.TEAMSITE DEVELOPER Work Phone: [facility] 01-10-2024 07:59-0400 Heart rate 71 /min Awilda Mattson RADIATOR FITTER.TEAMSITE DEVELOPER Work Phone: [facility] 01-10-2024 07:59-0400 Systolic blood pressure 155 mm[Hg] Awilda Mattson RADIATOR FITTER.TEAMSITE DEVELOPER Work Phone: [facility] 01-10-2024 07:58-0400 Body mass index (BMI) [Ratio] 27.81 kg/m2 Aiwlda Mattson RADIATOR FITTER.TEAMSITE DEVELOPER Work Phone: [facility] 01-10-2024 07:58-0400 Body weight 73.5 kg Awilda Mattson RADIATOR FITTER.TEAMSITE DEVELOPER Work Phone: [facility] 01-10-2024 07:58-0400 Respiratory rate 16 /min Awilda Mattson RADIATOR FITTER.TEAMSITE DEVELOPER Work Phone: [facility] 12-29-2021 00:59-0400 Heart rate 83 /min [facility] Work Phone: 12-29-2021 00:59-0400 Respiratory rate 18 /min [facility] Work Phone: 12-29-2021 00:59-0400 SaO2% (BldA) [Mass fraction] 97 % [facility] Work Phone: 12-28-2021 21:54-0400 Body height 167.64 cm [facility] Work Phone: 12-28-2021 21:54-0400 Body mass index (BMI) [Ratio] 25.8 kg/m2 [facility] Work Phone: 12-28-2021 21:54-0400 Body temperature 98 [degF] [facility] Work Phone: 12-28-2021 21:54-0400 Body weight 72.57 kg [facility] Work Phone: 12-28-2021 21:54-0400 Diastolic blood pressure 90 mm[Hg] [facility] Work Phone: 12-28-2021 21:54-0400 Systolic blood pressure 167 mm[Hg] [facility] Work Phone: 08-08-2021 07:27-0400 Diastolic blood pressure 83 mm[Hg] Awilda Mattson RADIATOR FITTER.TEAMSITE DEVELOPER Work Phone: [facility] 08-08-2021 07:27-0400 Systolic blood pressure 141 mm[Hg] Awilda Mattson RADIATOR FITTER.TEAMSITE DEVELOPER Work Phone: [facility] 08-08-2021 07:13-0400 Body height 162.6 cm Awilda Mattson RADIATOR FITTER.TEAMSITE DEVELOPER Work Phone: [facility] 08-08-2021 07:13-0400 Body weight 73.48 kg Awilda Mattson RADIATOR FITTER.TEAMSITE DEVELOPER Work Phone: [facility] 08-08-2021 07:13-0400 Heart rate 66 /min Awilda Mattson RADIATOR FITTER.TEAMSITE DEVELOPER Work Phone: [facility] 08-08-2021 07:13-0400 SaO2% (BldA) [Mass fraction] 97 % Awilda Mattson RADIATOR FITTER.TEAMSITE DEVELOPER Work Phone: [facility] Encounters Encounter Date Encounter Type Care Provider Facility Start: 09-23-2024 ambulatory Awildalaura Mattson GENERAL ADJUSTER Facilit y:[facility] Start: 09-22-2024 Encounter for other preprocedural examination David Lani [facility] Start: 09-22-2024 ambulatory MATEO AYALA Facilit y:[facility] Start: 09-16-2024 End: 09-16-2024 ambulatory MATEO D ALVAROAMPMARIEL Facility:[facility] Start: 09-01-2024 End: 09-01-2024 ambulatory MATEO JOHNAMPMARIEL Facility:[facility] Start: 08-28-2024 End: 08-29-2024 Follow-up encounter Awilda Srinivasan HURT.TEAMSITE DEVELOPER Work Phone: [facility] [place] Start: 08-27-2024 ambulatory AWILDA MATTSON Facility:[facility] Start: 08-27-2024 End: 08-27-2024 Subsequent hospital visit by physician M[facility] (I-Stat/1.5t) Work Phone: Radiology Comment on above: Abnormal results of liver function studies [R94.5] Start: 08-26-2024 End: 08-26-2024 ambulatory MATEO JOHNAMPAS Facility:[facility] Start: 08-25-2024 End: 08-26-2024 Telephone encounter Mateo Ayala MD Work Phone: [facility] [place] Comment on above: Results (labs) Start: 08-25-2024 End: 08-25-2024 ambulatory AWILDA MATTSON Facility:[facility] Start: 08-21-2024 End: 08-21-2024 ambulatory David Friend Facility:[facility] Start: 08-21-2024 End: 08-21-2024 ambulatory Awilda Mattson GENERAL ADJUSTER Facility:[facility] Start: 08-19-2024 End: 08-19-2024 ambulatory MATEO AYALA Facility:[facility] Start: 08-19-2024 End: 08-19-2024 Telephone encounter Mateo Ayala MD Work Phone: [address] [place] [address] Comment on above: Erroneous encounter- disregard Start: 08-19-2024 End: 08-19-2024 Patient encounter procedure Holly Jorge MD Work Phone: Urology Comment on above: Gross hematuria (Edna christie Dx); Bladder wall thickening; Benign prostatic hyperplasia with nocturia; Renal cysts, acquired, bilateral; History of kidney stones; Family history of prostate cancer in father; Calculus of kidney; Family history of renal cancer Start: 08-19-2024 End: 08-19-2024 ambulatory HOLLY JORGE Facility:[id number] Start: 08-18-2024 End: 08-18-2024 ambulatory AWILDA MATTSON Facility:[facility] Start: 08-16-2024 End: 08-16-2024 Emergency department patient visit Awilda Mattson GENERAL ADJUSTER-C Work Phone: -Emergency Department Work Phone: Start: 08-15-2024 End: 08-18-2024 Telephone encounter Awilda Mattson RADIATOR FITTER.TEAMSITE DEVELOPER Work Phone: [facility] [place] Comment on above: Patient Question; Re sults Start: 08-15-2024 End: 08-15-20[id number] Start: 08-14-2024 End: 08-14-2024 ambulatory AWILDA MATTSON Facility:[facility] Start: 07-28-2024 End: 07-28-2024 ambulatory ARLYN CRUZ Facility:[facility] Start: 07-28-2024 End: 07-28-2024 Patient encounter procedure Arlyn Cruz MD Work Phone: General Surgery Comment on above: Status post laparosc opic hernia repair (Primary Dx) Start: 07-16-2024 End: 07-16-2024 ambulatory LONG NAVARRO Facility:[facility] Start: 06-27-2024 End: 07-16-2024 Telephone encounter Long Navarro MD Work Phone: Pre Anesthesia Comment on above: Pre-op instructions (Pre-Operative instructions for surgery at [facility] on 07/16/2024) Start: 06-23-2024 End: 06-23-2024 ambulatory ARLYN CRUZ Facility:[facility] Start: 06-23-2024 End: 06-23-2024 Patient encounter procedure Arlyn Cruz MD Work Phone: General Surgery Comment on above: Left inguinal hernia (Primary Dx) Start: 01-10-2024 End: 01-10-2024 ambulatory AWILDA MATTSON Facility:[facility] Start: 01-10-2024 End: 01-10-2024 Office outpatient visit 25 minutes Awilda Mattson APRN.TEAMSITE DEVELOPER Work Phone: [facility] [place] Comment on above: Primary hypertension (Primary Dx); Screening for colon cancer; Encounter for immunization; Screening for depression; Encounter for screening examination for other mental health and behavioral disorders; Mixed hyperlipidemia; Hypertension, unspecified type; Screening exam for skin cancer Start: 08-29-2022 End: 08-29-2022 Patient encounter procedure Cynthia Oropeza OD Work Phone: Ophthalmology Comment on above: Lesion of right eyel id (Primary Dx); Nonexudative age-related macular degeneration, bilateral, early dry stage; Hypermetropia, bilateral; Regular astigmatism of both eyes; Presbyopia Start: 08-28-2022 ambulatory Awilda VARGASTEAMSITE DEVELOPER Work Phone: [facility] [place] Comment on above: Dog Bite (Patient wa s bit by a dog and is asking if he should get a tetanus shot booster or not) Refill Request Start: 12-28-2021 End: 12-29-2021 [facility] Start: 08-08-2021 End: 08-08-2021 Patient encounter procedure Awilda Mattson RADIATOR FITTER.TEAMSITE DEVELOPER Work Phone: [facility] [place] Comment on above: Screening for lipid disorders (Primary Dx); Encounter for screening for diabetes mellitus; Colon cancer screening; Hypertension, unspecified type Procedures Date Procedure Procedure Detail Performing Clinician Start: 08-27-2024 3d rendering w/interp&postproc diff work station Awilda Mattson RADIATOR FITTER.TEAMSITE DEVELOPER Work Phone: Start: 08-27-2024 Mri abdomen w/o & w/ contrast material Awilda Mcneals RADIATOR FITTER.TEAMSITE DEVELOPER Work Phone: Start: 08-19-2024 BLADDER SCAN Prasad Jorge MD Work Phone: Start: 08-19-2024 Urnls dip stick/tabl et rgnt auto w/o microscopy Holly Jorge MD Work Phone: Start: 08-16-2024 Ultrasonography of abdomen Awilda Mattson GENERAL ADJUSTER-C Work Phone: Start: 01-10-2024 Adult depression scr eening assessment Awildalaura Mattson RADIATOR FITTER.TEAMSITE DEVELOPER Work Phone: Start: 01-10-2024 Lipid 1996 panel - S gilbert or Plasma Arlyn Cruz MD Work Phone: Start: 08-29-2022 Computerized ophthal [place] [facility] retina Cynthia Oropeza OD Work Phone: Start: 08-29-2022 Lipid 1996 panel - S gilbert or Plasma Awilda Mattson RADIATOR FITTER.TEAMSITE DEVELOPER Work Phone: Start: 08-08-2021 Adult depression scr eening assessment Awildalaura Mattson RADIATOR FITTER.TEAMSITE DEVELOPER Work Phone: Start: 02-24-2009 Colonoscopy Awilda roland RADIATOR FITTER.TEAMSITE DEVELOPER Work Phone: Plan of Treatment Date Care Activity Detail Author Start: 08-29-2032 Urine microalbumin profile [facility] Start: 2029 RSV Vaccine (1 - 1-dose 75+ series) RSV Vaccine (1 - 1-dose 75+ series) [facility] Start: 01-09-2029 Lipid panel Lipid Screening [facility] Start: 08-30-2027 Lipid panel Lipid Screening [facility] Start: 08-30-2027 LIPID SCREEN LIPID SCREEN [facility] Start: 08-15-2027 Diabetes Screening Diabetes Screening [facility] Start: 01-09-2027 Diabetes Screening Diabetes Screening [facility] Start: 08-08-2026 PROSTATE CANCER SCREENING DISCUSSION PROSTATE CANCER SCREENING DISCUSSION [facility] Start: 08-29-2025 DIABETES SCREEN DIABETES SCREEN [facility] Start: 08-29-2025 Diabetes Screening Diabetes Screening [facility] Start: 01-26-2025 End: 01-26-2025 Patient encounter procedure 01/26/2025 8:00 AM EDT Office Visit [facility] Medicine [facility] [address] [place], [place] [id number] Mateo Ayala MD [address] [place] [address] Annual exam [facility] Comment on above: Annual exam Start: 01-09-2025 Annual PCP Team Chronic Disease Visit Annual PCP Team Chronic Disease Visit [facility] Start: 01-09-2025 Anxiety Screening Anxiety Screening [facility] Start: 01-09-2025 Covid-19 Vaccine ( season) Covid-19 Vaccine () [facility] Comment on above: Postponed from 12/23/2023 (Declined at t his time) Start: 01-09-2025 Covid-19 Vaccine ( season) Covid-19 Vaccine () [facility] Comment on above: Postponed from 12/23/2023 (Declined at t his time) Start: 01-09-2025 Depression Screening Depression Screening [facility] Start: 01-09-2025 Pneumococcal Vaccine: 50+ (1 of 1 - PCV) Pneumococcal Vaccine: 50+ (1 of 1 - PCV) [facility] Comment on above: Postponed from 02/02/2004 (Declined at t his time) Start: 01-09-2025 Pneumococcal Vaccine: 65+ (1 of 1 - PCV) Pneumococcal Vaccine: 65+ (1 of 1 - PCV) [facility] Comment on above: Postponed from 2019 (Declined at t his time) Start: 01-09-2025 RSV Vaccine (1 - 1-dose 60+ series) RSV Vaccine (1 - 1-dose 60+ series) [facility] Comment on above: Postponed from 2014 (Declined at t his time) Start: 01-09-2025 RSV Vaccine (1 - Risk 60-74 years 1-dose series) RSV Vaccine (1 - Risk 60-74 years 1-dose series) [facility] Comment on above: Postponed from 2014 (Declined at t his time) Start: 01-09-2025 Shingrix Vaccine (1 of 2) Shingrix Vaccine (1 of 2) [facility] Comment on above: Postponed from 02/02/2004 (Declined at t his time) Start: 12-22-2024 Influenza vaccination Influenza Vaccine (Season Ended) [facility] Start: 10-20-2024 Influenza vaccination Influenza Vaccine (#1) [facility] Comment on above: Postponed from 12/23/2023 (Declined at t his time) Start: 09-10-2024 End: 09-10-2024 Patient encounter procedure 09/10/2024 10:00 AM EDT Office Visit Urology [address] [place], [place] [id number] Holly Jorge MD [address] [place], [place] [id number] [facility] Comment on above: [facility] Start: 09-09-2024 End: 09-09-2024 Patient encounter procedure 09/09/2024 10:00 AM EDT Office Visit Urology [address] [place] [address] Holly Jorge MD [address] [place], [place] [phone] [facility] Comment on above: [facility] Start: 09-01-2024 End: 09-01-2024 ambulatory 09/01/2024 8:45 AM EDT Results Only [facility] Draw Station [address] [facility] [place] [address] Tomy [facility] Draw Station Start: 08-27-2024 End: 08-27-2024 Patient encounter procedure 08/27/2024 9:30 AM EDT Appointment Radiology [address] [place] [address] Abnormal results of liver function studies [R94.5] Radiology Comment on above: Abnormal results of liver function studi es [R94.5] Start: 08-25-2024 End: 11-24-2024 PT panel - Platelet poor plasma by Coagulation assay PROTHROMBIN TIME Lab Routine Abnormal results of liver function studies Expected: 08/25/2024, Expires: 11/24/2024 [facility] Work Phone: Comment on above: Expected: 08/25/2024, Expires: Start: 08-19-2024 End: 08-19-2024 ambulatory 08/19/2024 3:30 PM EDT Results Only [place] [facility] Draw Station [address] [facility] [place] [address] Labs [facility] Draw Station Comment on above: Labs Start: 08-19-2024 End: 11-18-2024 Prostate specific Ag [Mass/volume] in Serum or Plasma PROSTATE-SPECIFIC ANTIGEN DIAGNOSTIC Lab Routine Gross hematuria Benign prostatic hyperplasia with nocturia Expected: 08/19/2024, Expires: 11/18/2024 [facility] Work Phone: Comment on above: Expected: 08/19/2024, Expires: Start: 08-19-2024 End: 08-19-2024 Patient encounter procedure 08/19/2024 9:00 AM EDT Office Visit Urology [address] [place] [phone] Holly Jorge MD [address] [place] [phone] Gross hematuria [R31.0]; Family history of renal cancer [Z80.51]; urine, pvr, vitals Urology Comment on above: Gross hematuria [R31.0]; Family history of renal cancer [Z80.51]; urine, pvr, vitals Start: 08-18-2024 End: 11-17-2024 Mitochondria Ab [Presence] in Serum by Immunofluorescence [facility] Comment on above: Expected: 08/18/2024, Expires: Start: 08-18-2024 End: 11-17-2024 Smooth muscle Ab [Presence] in Serum [facility] Work Phone: Comment on above: Expected: 08/18/2024, Expires: Start: 07-28-2024 End: 07-28-2024 Patient encounter procedure 07/28/2024 8:00 AM EDT Office Visit General Surgery [address] [place], [place] [phone] Arlyn Cruz MD [address] [place] [phone] 4 WEEK F/U General Surgery Comment on above: 4 WEEK F/U Start: 07-16-2024 End: 07-16-2024 Admission to same day surgery center 07/16/2024 7:30 AM EDT - 07/16/2024 9:02 AM EDT Surgery [facility] Surgery [address] [place] [address] Long Navarro MD [address] [place], [place] [phone] LAPAROSCOPIC HERNIORRHAPHY, INGUINAL INITIAL [facility] Surgery Comment on above: LAPAROSCOPIC HERNIORRHAPHY, INGUINAL INI TIAL Start: 07-16-2024 End: 07-16-2024 Laparoscopy surg rpr initial inguinal hernia [place] Start: 07-16-2024 Subsequent hospital visit by physician 07/16/2024 7:30 AM EDT Hospital Encounter [facility] Surgery [address] [place] [id number] Long Navarro MD [address] [place], [place] [phone] Left inguinal hernia [K40.90] [facility] Surgery Comment on above: Left inguinal hernia [K40.90] Start: 06-24-2024 DIABETES SCREEN DIABETES SCREEN [facility] Start: 04-23-2024 Advance Directive Discussion Advance Directive Discussion [facility] Start: 04-23-2024 Screening for malignant neoplasm of colon Colorectal Cancer Screening [facility] Comment on above: Postponed from 1999 (Postponed To Appropriate Date) Start: 01-10-2024 End: 04-10-2024 CBC W Auto Differential panel - Blood [facility] Comment on above: Expected: 01/10/2024, Expires: 4 Start: 01-10-2024 End: 04-10-2024 Comprehensive metabolic 2000 panel - Serum or Plasma [facility] Work Phone: Comment on above: Expected: 01/10/2024, Expires: Start: 01-10-2024 End: 04-10-2024 Lipid 1996 panel - Serum or Plasma [facility] Comment on above: Expected: 01/10/2024, Expires: 4 Start: 08-30-2023 ANNUAL PCP TEAM CHRONIC DISEASE VISIT ANNUAL PCP TEAM CHRONIC DISEASE VISIT [facility] Start: 08-30-2023 COLORECTAL CANCER SCREENING COLORECTAL CANCER SCREENING [facility] Comment on above: Postponed from 1999 (Declined at t his time) Start: 01-29-2023 BP CONTROLLED (<130/80) BP CONTROLLED (<130/80) [facility] in Comment on above: Postponed from 02/02/1972 (Postponed To Appropriate Date) Start: 12-22-2022 Influenza vaccination INFLUENZA (Season Ended) [facility]an Start: 08-08-2022 Adult depression screening assessment DEPRESSION SCREENING [facility] Start: 08-08-2022 COVID-19 VACCINE (1) COVID-19 VACCINE (1) [facility] Comment on above: Postponed from 1959 (Declined at t his time) Start: 04-24-2022 PNEUMOVAX AGE 65 AND OVER WITH 5YR LOOKBACK (#1) PNEUMOVAX AGE 65 AND OVER WITH 5YR LOOKBACK (#1) [facility] Comment on above: Postponed from 2019 (Declined at t his time) Start: 04-24-2022 SHINGRIX VACCINE (1 of 2) SHINGRIX VACCINE (1 of 2) [facility] Comment on above: Postponed from 02/02/2004 (Insurance Cov erage) Start: 04-24-2022 Urine microalbumin profile DTAP,TDAP,TD (2 - Td or Tdap) [facility] Comment on above: Postponed from 12/22/2020 (Insurance Cov erage) Start: 04-23-2022 ADVANCE DIRECTIVE DISCUSSION ADVANCE DIRECTIVE DISCUSSION [facility] Start: 04-23-2022 DEPRESSION ASSESSMENT DEPRESSION ASSESSMENT [facility] Start: 02-07-2022 End: 04-09-2022 Hemoglobin A1c/Hemoglobin.total in Blood HGB A1C Lab Routine Screening for lipid disorders Expected: 02/07/2022 (Approximate), Expires: 04/09/2022 [facility] Work Phone: Comment on above: Expected: 02/07/2022 (Approximate), Expi res: 04/09/2022 Start: 02-07-2022 End: 04-09-2022 LIPID PANEL BASIC LIPID PANEL BASIC Lab Routine Screening for lipid disorders Expected: 02/07/2022 (Approximate), Expires: 04/09/2022 [facility] Work Phone: Comment on above: Expected: 02/07/2022 (Approximate), Expi res: 04/09/2022 Start: 12-22-2021 Influenza vaccination INFLUENZA (Season Ended) [facility] Start: 03-13-2021 LIPID SCREEN LIPID SCREEN [facility] Start: 12-22-2020 Urine microalbumin profile DTAP,TDAP,TD (2 - Td or Tdap) [facility] Start: 02-24-2019 Colonoscopy COLONOSCOPY [facility] Start: 02-24-2019 COLORECTAL CANCER SCREENING COLORECTAL CANCER SCREENING [facility] Start: 02-24-2019 Screening for malignant neoplasm of colon [facility] Start: 2019 PNEUMOCOCCAL: 65+ (1 - PCV) PNEUMOCOCCAL: 65+ (1 - PCV) [facility] Start: 02-02-2004 SHINGRIX VACCINE (1 of 2) SHINGRIX VACCINE (1 of 2) [facility] Start: 1999 COLOGUARD (FIT-DNA) COLOGUARD (FIT-DNA) [facility] Start: [address] COLONOGRAPHY [facility] Start: 1999 FECAL OCCULT BLOOD FECAL OCCULT BLOOD [facility] Start: 1999 Screening for malignant neoplasm of colon [facility] Start: 1999 SIGMOIDOSCOPY SIGMOIDOSCOPY [facility] Start: 02-02-1972 BP Controlled (<130/80) BP Controlled (<130/80) [facility] Start: 1955 COVID-19 VACCINE (#1) COVID-19 VACCINE (#1) [facility] Bacteria identified in Urine by Culture BACTERIAL CULTURE, URINE Microbiology Routine Gross hematuria 08/19/2024 10:10 AM EDT [facility] CYTOLOGY NON-GEL COATER CYTOLOGY NON-GY N Lab Routine Gross hematuria Ordered: 08/19/2024 [facility] Comment on above: Ordered: 08/19/2024 End: 08-18-2025 Hepatic function 2000 panel - Serum or Plasma HEPATIC FUNCTION PNL Lab Routine Hyperbilirubinemia Elevated liver enzymes Once per week for 3 Occurrences starting 08/18/2024 until 08/18/2025 [facility] Comment on above: Once per week for 3 Occurrences starting 08/18/2024 until 08/18/2025 Hepatic function 200 0 panel - Serum or Plasma HEPATIC FUNCTION PNL Lab Routine Hyperbilirubinemia Elevated liver enzymes 08/18/2024 4:09 PM EDT [facility] End: 08-25-2025 Hepatic function 2000 panel - Serum or Plasma HEPATIC FUNCTION PNL Lab Routine Abnormal results of liver function studies Once per week for 3 Occurrences starting 08/25/2024 until 08/25/2025 [facility] Comment on above: Once per week for 3 Occurrences starting 08/25/2024 until 08/25/2025 Hepatic function 200 0 panel - Serum or Plasma HEPATIC FUNCTION PNL Lab Routine Abnormal results of liver function studies 08/26/2024 8:54 AM EDT [facility] Laparoscopy surg rpr initial inguinal hernia LAPAROSCOPIC HERNIORRHAPHY, INGUINAL INITIAL Left inguinal hernia ME OR End: 09-24-2025 MR Biliary ducts and Pancreatic duct WO and W contrast IV MRI PANC/ALBERT WO/W IVCON Radiology Routine Abnormal results of liver function studies 1 Occurrences starting 08/25/2024 until 09/24/2025 [facility] Comment on above: 1 Occurrences starting 08/25/2024 until 09/24/2025 End: 09-24-2025 MR Unspecified body region 3D post processing MRI 3D POST PROCESSING Radiology Routine Abnormal results of liver function studies 1 Occurrences starting 08/25/2024 until 09/24/2025 [facility] Comment on above: 1 Occurrences starting 08/25/2024 until 09/24/2025 Patient Education ALT [facility] Work Phone[facility] PT panel - Platelet poor plasma by Coagulation assay PROTHROMBIN TIME Lab Routine Abnormal results of liver function studies 08/26/2024 8:54 AM EDT [facility] [place] [facility] Immunizations Immunization Date Immunization Notes Care Provider Aristides heath 08-29-2022 tetanus toxoid, redu jayne diphtheria toxoid, and acellular pertussis vaccine, adsorbed Cynthia Oropeza OD Work Phone: [facility] Work Phone: 01-05-2016 influenza, injectabl e, quadrivalent, contains preservative Awilda Mattson RADIATOR FITTER.TEAMSITE DEVELOPER Work Phone: [facility] 01-05-2016 influenza virus vaccine, unspecified formulation Awilda Mattson RADIATOR FITTER.TEAMSITE DEVELOPER Work Phone: [facility] 03-10-2013 influenza virus vaccine, unspecified formulation Awilda Mattson RADIATOR FITTER.TEAMSITE DEVELOPER Work Phone: [facility] 12-22-2010 tetanus toxoid, redu jayne diphtheria toxoid, and acellular pertussis vaccine, adsorbed Awilda Mattson RADIATOR FITTER.TEAMSITE DEVELOPER Work Phone: [facility] Payers Date Payer Category Payer Self-pay 2020 Private Health Insurance [id number] 2020 Private Health Insurance [facility] [id number] 2019 Medicare MEDICARE MEDICAR E A AND B [id number] 2019-Present [phone] [place] [address] Medicare [id number] 2019 Medicare [id number] 2019 Medicare [id number] 2006 Unknown [facility] [id number] Unknown [id number] Unknown [id number] Unknown [id number] Unknown [id number] Social History Date Type Detail Facility Start: 12-22-2010 End: 08-29-2022 Tobacco smoking status NHIS Never smoked tobacco [facility] Start: 12-22-2010 End: 08-29-2022 Tobacco use and exposure Former smokeless tobacco user [facility] End: 04-23-2008 History of tobacco use Snuff User [facility] Start: 08-08-2021 End: 08-19-2024 Alcohol intake Current drinker of alcohol (finding) [facility] Start: 08-08-2021 History SDOH Alcohol Comment 2 beers per day [facility] Start: 1955 Sex Assigned At Not on file [facility] Start: 07-29-2021 End: 08-08-2021 Exposure to SARS-CoV-2 (event) Not sure [facility] Start: 12-29-2021 Tobacco smoking stat us IAIS Unknown if ever smoked [facility] Work Phone: Start: 1955 Sex Assigned At Male [facility] Start: 08-29-2022 End: 01-10-2024 History of Social function [facility] Start: 08-29-2022 End: 01-10-2024 Tobacco use panel [facility] Adult Depression Screening Assessment 0 [facility] Start: 08-16-2024 Sex Male (finding) [facility] Medical Equipment Procedure Code Equipment Code Equipment Origin al Text Equipment Identifier Dates Mesh Progrip Ruth Pet [id number] Surgical Self Fixate Flat Sheet Hernia Sterile - [id number] Start: 07-16-2024 Functional Status Date Assessment Result Facility 07-21-2013 Are you deaf, or do you have serious difficulty hearing No 07/21/2013 4:53 PM EDLibby Akins Cma No [facility] 07-21-2013 Are you blind, or do you have serious difficulty seeing, even when wearing glasses No 07/21/2013 4:53 PM EDLibby Akins Cma No [facility] 07-21-2013 Do you have serious difficulty walking or climbing stairs No 07/21/2013 4:53 PM EDLibby Akins Cma No [facility] 07-21-2013 Do you have difficul ty dressing or bathing No 07/21/2013 4:53 PM EDLibby Akins Cma No [facility] 07-21-2013 Because of a physica l, mental, or emotional condition, do you have difficulty doing errands alone such as visiting a physician's office or shopping No 07/21/2013 4:53 PM Libby Pantoja Cma No [facility] Mental Status Date Assessment Result Facility 08-16-2024 Cognitive function Level Of Cons ciousness Awake;Alert;Appropriate;Fol lows Commands [facility] Work Phone: 07-21-2013 Because of a physica l, mental, or emotional condition, do you have serious difficulty concentrating, remembering, or making decisions No 07/21/2013 4:53 PM iLbby Pantoja Cma No [facility] Clinical Notes 10-28-2008 to 08-28-2024 Result Encounter Note - Awilda Mattson APRN.CNS - 08/28/2024 8:05 AM EDTResult Encounter Note - Awilda Mattson APRN.CNS - 08/28/2024 8:05 AM Holly Fletcher MD - 08/19/2024 9:00 AM EDT Note Date & Type Note Facility 08-28-2024 Progress note Formatting of t his note might be different from the original. No concerning findings on MRI [facility] 08-28-2024 Miscellaneous Notes No concerning findings on MRI documented in this encounter [facility] 08-27-2024 History of Present illness Narrative Radiology Service Progress Note DATE OF SERVICE: August 27, 2024 TIME: 9:37 AM PATIENT IDENTITY VERIFICATION COMPLETED USING TWO (2) STANDARD IDENTIFIERS: Name and Date of confirmed by patient verbally. FALL SCREENING: Has the patient had 2 falls in the last year or 1 fall with injury or currently using an Ambulatory Assistive Device (Walker, Cane, Wheelchair, Crutches, etc.)? No PATIENT GENDER DATA: Assigned female at . status: : No status: NO. PATIENT RELEVANT IMPLANT DATA REVIEWED: Yes PATIENT PRESENTS WITH AN IMPLANTABLE OR ATTACHED DEDICATED REGIONAL DRIVER: No ALLERGIES: Reviewed and unchanged CONTRAST ALLERGY: NO. EXAM: MRI - CONTRAST TYPE: GROUP II PERIPHERAL IV DATA: Ambulatory: A peripheral IV was started in the Right antecubital site with a Angio cath: 22 gauge. RADIOLOGY DEPARTMENT: MR; Exam(s) Completed: Body: Pancreas/Biliary. Lavender Administered: No SIGNATURE: RT Kallie(R) PATIENT NAME: Chloé Gutierrez DATE: August 27, 2024 TIME: 9:37 AM documented in this encounter [facility] 08-27-2024 Note HNO ID: [id number] Author: CHRISTIE SHAH RT(Lucia) Service: ? Author Type: Technologist Type: Progress Notes Filed: 08/27/2024 09:38 Note Text: Radiology Service Progress Note DATE OF SERVICE: August 27, 2024 TIME: 9:37 AM PATIENT IDENTITY VERIFICATION COMPLETED USING TWO (2) STANDARD IDENTIFIERS: Name and Date of confirmed by patient verbally. FALL SCREENING: Has the patient had 2 falls in the last year or 1 fall with injury or currently using an Ambulatory Assistive Device (Walker, Cane, Wheelchair, Crutches, etc.)? No PATIENT GENDER DATA: Assigned female at . status: : No status: NO. PATIENT RELEVANT IMPLANT DATA REVIEWED: Yes PATIENT PRESENTS WITH AN IMPLANTABLE OR ATTACHED DEDICATED REGIONAL DRIVER: No ALLERGIES: Reviewed and unchanged CONTRAST ALLERGY: NO. EXAM: MRI - CONTRAST TYPE: GROUP II PERIPHERAL IV DATA: Ambulatory: A peripheral IV was started in the Right antecubital site with a Angio cath: 22 gauge. RADIOLOGY DEPARTMENT: MR; Exam(s) Completed: Body: Pancreas/Biliary. Lavender Administered: No SIGNATURE: Christie Shah, RT(R) PATIENT NAME: Chloé Gutierrez DATE: August 27, 2024 TIME: 9:37 AM [facility] 08-26-2024 Telephone encounter Note Spoke with patient who ad just finished at the lab for his Pro Time and scheduled MRI. Patient also asked which [facility] is closest so that, if he should feel the need to go to an ER, he wanted to know which was closest. This PSS checked and advised [facility] is the closest to his home. Kiersten Herbert [facility] 08-26-2024 Miscellaneous Notes Spoke with patient who ad just finished at the lab for his Pro Time and scheduled MRI. Patient also asked which [facility] is closest so that, if he should feel the need to go to an ER, he wanted to know which was closest. This PSS checked and advised [facility] is the closest to his home. Kiersten Herbert Patient notified of providers message and verbalized understanding. Patient states Dr. Garibay had ordered a MRI but doesn't know exactly what kind of MRI it is and he is still waiting for approval. Patient is agreeable to schedule pro time and MRCP/MRI here with [facility] and he will check with Dr. Melchor office to see if it is the same MRI they are trying to schedule. Encounter routed to PSS to assist patient is scheduling I would encourage that he stay local until we have a better idea of what is causing his problems. Liver enzymes remain elevated. AST and ALT are trending downward however alkaline phosphatase is trending upward. Smooth M antibody is negative. VIVIENNE is negative. Recommend continuing to avoid acetaminophen, fobh-tjv-enhunhq supplements or medications, and alcohol use. Recommend we complete a pro time and MRCP/MRI. Please schedule. Hepatic function panel weekly for the next couple of weeks. Urology has also recommended a workup of his gross hematuria. Plan culture cytology and cystoscopy. Patient called asking if lab results are in yet? Patient is asking if he can go out of town for work for about 10 days Can be reached at [phone] Please advise documented in this encounter [facility] 08-25-2024 Telephone encounter Note Patient notified of providers message and verbalized understanding. Patient states Dr. Garibay had ordered a MRI but doesn't know exactly what kind of MRI it is and he is still waiting for approval. Patient is agreeable to schedule pro time and MRCP/MRI here with [facility] and he will check with Dr. Melchor office to see if it is the same MRI they are trying to schedule. Encounter routed to PSS to assist patient is scheduling [facility] 08-25-2024 Telephone encounter Note I would encourage that he stay local until we have a better idea of what is causing his problems. Liver enzymes remain elevated. AST and ALT are trending downward however alkaline phosphatase is trending upward. Smooth M antibody is negative. VIVIENNE is negative. Recommend continuing to avoid acetaminophen, wlbp-fnk-nfvoegc supplements or medications, and alcohol use. Recommend we complete a pro time and MRCP/MRI. Please schedule. Hepatic function panel weekly for the next couple of weeks. Urology has also recommended a workup of his gross hematuria. Plan culture cytology and cystoscopy. [facility] 08-25-2024 Telephone encounter Note Patient called asking if lab results are in yet? Patient is asking if he can go out of town for work for about 10 days Can be reached at [phone] Please advise [facility] Work Phone: 08-19-2024 History of Present illness Narrative Images from the original note were not included. [facility] NEW PATIENT CONSULT/HISTORY AND PHYSICAL PATIENT: Chloé Gutierrez (69 year old) REFERRING PROVIDER: Awilda Mattson PCP: Mateo Ayala MD DATE OF SERVICE: 08/19/2024 Consultation requested by Awilda Mattson for an opinion regarding Chloé Gutierrez. My final recommendations will be communicated back to the requesting physician by way of shared Medical record or letter to requesting physician. Assessment & Plan Gross hematuria Prior painless gross hematuria UA today negative CT reviewed Obtain culture, cytology, PSA, cystoscopy Orders: CONSULT TO UROLOGY UA DIP, URINE (POC) BLADDER SCAN PROSTATE-SPECIFIC ANTIGEN DIAGNOSTIC; Future BACTERIAL CULTURE, URINE CYTOLOGY NON-GEL COATER Bladder wall thickening Seen by Ct Plan cystoscopy Benign prostatic hyperplasia with nocturia Mild nocturia Prostate enlargement seen by CT Family history prostate cancer Obtain PSA Orders: PROSTATE-SPECIFIC ANTIGEN DIAGNOSTIC; Future Renal cysts, acquired, bilateral Benign appearing History of kidney stones Prior lithotripsy No stones seen on current CT Family history of prostate cancer in father Calculus of kidney Family history of renal cancer FOLLOW UP: Return for cystoscopy. SUMMARY: Mr. Gutierrez is a 69 year old male who presents as a new consultation for: CHIEF COMPLAINT: Patient presents with: Consult: Consult 08/16/24. Gross Hematuria. Patient has seen blood in his urine. HISTORY OF PRESENT ILLNESS: The patient reports an acute onset of hematuria, first noticed on Sunday after a weekend trip to [place]. He observed red discoloration in his urine for three consecutive days. He sought evaluation at an urgent care facility, where a urinalysis revealed trace hematuria. Upon returning home, his primary care provider ordered blood and urine tests, which reportedly suggested a possible hepatic blockage. A subsequent CT scan was performed. Following these events, the patient presented to the [facility] ER due to concerns about potential jaundice. He was admitted for observation and underwent an ultrasound, as well as additional blood and urine tests. He denies any symptoms consistent with nephrolithiasis during this episode. The patient has a history of nephrolithiasis, with one episode requiring lithotripsy. He also has a family history of malignancies, including colon cancer in his mother and prostate cancer in his father, who was successfully treated. He mentions a twin brother who was diagnosed with renal cancer following an evaluation for a small bowel obstruction. The patient recently underwent hernia repair on 07/16, which he reports has healed well. He consumes 1-2 beers daily but has decided to abstain from alcohol following this recent health scare. I personally reviewed the past medical records received from the referring provider. REVIEW OF SYSTEMS: Genitourinary: Denies current hematuria, dysuria, frequency, urgency, nocturia, JEAN-CLAUDE, weak stream. Constitutional: unintentional weight loss - denies, fevers - denies Cardiovascular: new or worsening chest pain - denies Respiratory: new or worsening shortness of breath - denies Gastrointestinal: constipation - denies, vomiting - denies Hematologic/Lymphatic: easy bleeding or bruising - denies ALLERGIES: ALLERGIES Allergen Reactions Seasonal Allergies Other: See Comments MEDICATIONS: amLODIPine (NORVASC) 2.5 mg tablet Take 1 tablet by mouth once daily. PAST HISTORY: PAST MEDICAL HISTORY Diagnosis Date Diverticulosis of colon (without mention of hemorrhage) H/O lithotripsy 01/07/2014 EXTRACORPOREAL SHOCKWAVE LITHOTRIPSY Hypertension, unspecified type Internal hemorrhoids without mention of complication Macular degeneration Wet in right eye, Dx in both for maculaar degeneration Other and unspecified hyperlipidemia 09/02/2007 LDL 160, HDL 58, TG 68 in 5-08: consider meds if not successful with wt loss at follow up PAST SURGICAL HISTORY Procedure Laterality Date COLONOSCOPY FLX DX W/COLLJ SPEC WHEN PFRMD 02/24/2009 LAPROSCOPIC REPAIR UMBILICAL HERNIA Left 07/16/2024 LITHOTRIPSY EXTRACORP SHOCK WAVE(ESWL) 01/07/2014 PT ED DIGESTIVE DISEASE RPR 1ST INGUN HRNA AGE 5 YRS/> REDUCIBLE as Hernia repair, inguinal RPR UMBILICAL HERNIA < 5 YRS REDUCIBLE as Hernia repair, umbilical <5yr FAMILY HISTORY Problem Relation Age of Onset Heart Mother irragular beat Hypertension Mother Kidney Cancer Mother Prostate Cancer Father 1998 other (Heat condition) Father No Known Problems Sister No Known Problems Sister Kidney Cancer Brother other (Kidney removed) Brother Psoriasis Brother No Known Problems Brother Psoriasis Brother other (Heart condition) Brother other (Valve replaced) Brother No Ocular Disease No Family History Social History Tobacco Use Smoking status: Never Smokeless tobacco: Former Types: Snuff Quit date: 04/23/2008 Vaping Use Vaping status: Never Used Substance Use Topics Alcohol use: Yes Alcohol/week: 14.0 standard drinks of alcohol Types: 14 Cans of beer per week Comment: 2 beers per day Drug use: Never PHYSICAL EXAMINATION: BP 146/83 (BP Position: Sitting) Ht 160 cm (5' 3) Wt 71.2 kg (157 lb) BMI 27.81 kg/m Verbal informed consent obtained for exam below: Genitourinary: declines Constitutional: In no acute distress. Respiratory: Normal respiratory effort without use of accessory muscles. Musculoskeletal: Ambulating without issue Cardiovascular: Regular rate Gastrointestinal: Nondistended DATA: Clinic: URINALYSIS: GLUCOSE UA (POCT) 100 08/19/2024 BILIRUBIN UA (POCT) Small 08/19/2024 KETONE UA (POCT) Trace 08/19/2024 SPECIFIC GRAVITY UA (POCT) 1.025 08/19/2024 HEMOGLOBIN/BLOOD UA (POCT) Negative 08/19/2024 PH UA (POCT) 5.5 08/19/2024 PROTEIN UA (POCT) 100 08/19/2024 UROBILINOGEN UA (POCT) 2.0 08/19/2024 NITRITE UA (POCT) Negative 08/19/2024 LEUKOCYTES UA (POCT) Negative 08/19/2024 COLOR UA (POCT) Yellow 08/19/2024 CLARITY UA (POCT) Clear 08/19/2024 Laboratory: Creatinine Date Value Ref Range Status 08/14/2024 1.08 0.73 - 1.22 mg/dL Final 01/10/2024 1.14 0.73 - 1.22 mg/dL Final 08/29/2022 1.13 0.73 - 1.22 mg/dL Final 06/24/2021 1.24 (H) 0.73 - 1.22 mg/dL Final Cultures: Culture Results - Past 1 Year Culture 08/14/2024 <10,000 CFU/ml Normal urogenital hany Susceptibility Tests - Past 1 Year Collected Organism 08/14/[address] abd/pelv IMPRESSION: 1. Mild circumferential wall thickening of the urinary bladder may be related to incomplete distention, chronic outlet obstruction and/or cystitis. 2. Prostatomegaly. 3. Other chronic and incidental findings as above. PSA: No results found for: PSA DISCUSSIONS: Discussed hematuria and possible causes. Discussed risk of malignancy versus benign conditions. Discussed options for work up. Plan culture, cytology, and cystoscopy. We discussed the planned procedure. Risks, benefits, and alternatives of the procedure were discussed. Patient acknowledges understanding and consents to proceed. Recording using Spacedeck software for draft documentation of the visit was discussed with the patient/authorized patient admitting representative; all questions welcomed and answered. Patient/authorized patient admitting representative agreed to proceed I have reviewed the problem list, family history, and social history documented by my ancillary staff. Holly Jorge MD Staff Urologist Office documented in this encounter [facility] 08-19-2024 Note HNO ID: [id number] Author: HOLLY JORGE MD Service: ? Author Type: Physician Type: Progress Notes Filed: 08/19/2024 09:27 Note Text: [facility] NEW PATIENT CONSULT/HISTORY AND PHYSICAL PATIENT: Chloé Gutierrez (69 year old) REFERRING PROVIDER: Awilda Mattson PCP: Mateo Ayala MD DATE OF SERVICE: 08/19/2024 Consultation requested by Awilda Mattson for an opinion regarding Chloé Gutierrez. My final recommendations will be communicated back to the requesting physician by way of shared Medical record or letter to requesting physician. ----- Assessment AND Plan Gross hematuria Prior painless gross hematuria UA today negative CT reviewed Obtain culture, cytology, PSA, cystoscopy Orders: CONSULT TO UROLOGY UA DIP, URINE (POC) BLADDER SCAN PROSTATE-SPECIFIC ANTIGEN DIAGNOSTIC; Future BACTERIAL CULTURE, URINE CYTOLOGY NON-GEL COATER Bladder wall thickening Seen by Ct Plan cystoscopy Benign prostatic hyperplasia with nocturia Mild nocturia Prostate enlargement seen by CT Family history prostate cancer Obtain PSA Orders: PROSTATE-SPECIFIC ANTIGEN DIAGNOSTIC; Future Renal cysts, acquired, bilateral Benign appearing History of kidney stones Prior lithotripsy No stones seen on current CT Family history of prostate cancer in father Calculus of kidney Family history of renal cancer ---- FOLLOW UP: Return for cystoscopy. ----- SUMMARY: Mr. Gutierrez is a 69 year old male who presents as a new consultation for: CHIEF COMPLAINT: Patient presents with: Consult: Consult 08/16/24. Gross Hematuria. Patient has seen blood in his urine. HISTORY OF PRESENT ILLNESS: The patient reports an acute onset of hematuria, first noticed on Sunday after a weekend trip to [place]. He observed red discoloration in his urine for three consecutive days. He sought evaluation at an urgent care facility, where a urinalysis revealed trace hematuria. Upon returning home, his primary care provider ordered blood and urine tests, which reportedly suggested a possible hepatic blockage. A subsequent CT scan was performed. Following these events, the patient presented to the [place] ER due to concerns about potential jaundice. He was admitted for observation and underwent an ultrasound, as well as additional blood and urine tests. He denies any symptoms consistent with nephrolithiasis during this episode. The patient has a history of nephrolithiasis, with one episode requiring lithotripsy. He also has a family history of malignancies, including colon cancer in his mother and prostate cancer in his father, who was successfully treated. He mentions a twin brother who was diagnosed with renal cancer following an evaluation for a small bowel obstruction. The patient recently underwent hernia repair on 07/16, which he reports has healed well. He consumes 1-2 beers daily but has decided to abstain from alcohol following this recent health scare. I personally reviewed the past medical records received from the referring provider. REVIEW OF SYSTEMS: Genitourinary: Denies current hematuria, dysuria, frequency, urgency, nocturia, JEAN-CLAUDE, weak stream. Constitutional: unintentional weight loss - denies, fevers - denies Cardiovascular: new or worsening chest pain - denies Respiratory: new or worsening shortness of breath - denies Gastrointestinal: constipation - denies, vomiting - denies Hematologic/Lymphatic: easy bleeding or bruising - denies ALLERGIES: ALLERGIES Allergen Reactions Seasonal Allergies Other: See Comments MEDICATIONS: amLODIPine (NORVASC) 2.5 mg tablet Take 1 tablet by mouth once daily. PAST HISTORY: PAST MEDICAL HISTORY Diagnosis Date Diverticulosis of colon (without mention of hemorrhage) H/O lithotripsy 01/07/2014 EXTRACORPOREAL SHOCKWAVE LITHOTRIPSY Hypertension, unspecified type Internal hemorrhoids without mention of complication Macular degeneration Wet in right eye, Dx in both for maculaar degeneration Other and unspecified hyperlipidemia 09/02/2007 LDL 160, HDL 58, TG 68 in 5-08: consider meds if not successful with wt loss at follow up PAST SURGICAL HISTORY Procedure Laterality Date COLONOSCOPY FLX DX W/COLLJ SPEC WHEN PFRMD 02/24/2009 LAPROSCOPIC REPAIR UMBILICAL HERNIA Left 07/16/2024 LITHOTRIPSY EXTRACORP SHOCK WAVE(ESWL) 01/07/2014 PT ED DIGESTIVE DISEASE RPR 1ST INGUN HRNA AGE 5 YRS/> REDUCIBLE as Hernia repair, inguinal RPR UMBILICAL HERNIA < 5 YRS REDUCIBLE as Hernia repair, umbilical <5yr FAMILY HISTORY (more content not included)... [facility] 08-18-2024 Telephone encounter Note Noted, will reviewe records. I would encourage staying local until we have a better idea of what is causing his problems. [facility] 08-18-2024 Miscellaneous Notes Noted, will reviewe records. I would encourage staying local until we have a better idea of what is causing his problems. Patient was given providers message and verbalized understanding.. Patient states he is feeling better and urine has lightened up but sometimes still has some darker color to it. Patient states no new medications including no new otc meds. Patient does report he is getting eye injections and is having some dental problems. Patient also states that he was to watch for yellowing in eyes and skin and couldn't tell if he eyes were yellow so went to the ER to have them checked and they ran more test including ultrasound. Record obtained and on the desk for review. Patient also states he has a job waiting in [place] that will last 5-6 days and wanted to know when he will be healthy enough to do job. Would like to go as soon as possible. I reviewed CT results with him on Sunday. He had additional labwork., some results are still pending. I placed an e-consult Sunday with gastroenterology. The impression with this is a mixed pattern of liver injury and raises concern for possible drug-induced liver damage. Recommended adding 2 additional tests-smooth M antibody and AMA. Repeat liver function test weekly for 3 weeks. If levels keep rising we will get additional testing to include pro time and admit and MR CP and MRI. Will then share the results with the ladle repairman. Ask 1-How is he feeling today? 2- What does urine look like? 3-Ask him if any new medications taken including over the counter. Did report taking AREDs supplement per eye doctor recommendations. Anything else OTC? Patient calling and is asking about CT results. Please review and advise, Kiersten Plasencia RN Patient calling asking if he has been taking a hot bath with jets daily at home in his bathtub, if that could pose a problem? He said he was talking to the GENERAL ADJUSTER about CT results shortly ago. Please advise documented in this encounter [facility] 08-18-2024 Telephone encounter Note Patient was given providers message and verbalized understanding.. Patient states he is feeling better and urine has lightened up but sometimes still has some darker color to it. Patient states no new medications including no new otc meds. Patient does report he is getting eye injections and is having some dental problems. Patient also states that he was to watch for yellowing in eyes and skin and couldn't tell if he eyes were yellow so went to the ER to have them checked and they ran more test including ultrasound. Record obtained and on the desk for review. Patient also states he has a job waiting in [place] that will last 5-6 days and wanted to know when he will be healthy enough to do job. Would like to go as soon as possible. [facility] 08-18-2024 Note HNO ID: [id number] Author: IMELDA ROCA MD Service: ? Author Type: Physician Type: Progress Notes Filed: 08/18/2024 13:07 Note Text: Dear Awilda Ayala This is a mixed pattern of liver injury and it raises concerns over Drug induced liver damage. Please ask if any new meds were ingested , more specifically , OTC. I also suggest adding smooth m antibody, and AMA. repeatLFT weekly x 3 if levels keep rising, please get Protime and an MRCP/MRI and share results with me Best Imelda Escalante MD [facility] 08-18-2024 Telephone encounter Note I reviewed CT results with him on Sunday. He had additional labwork., some results are still pending. I placed an e-consult Sunday with gastroenterology. The impression with this is a mixed pattern of liver injury and raises concern for possible drug-induced liver damage. Recommended adding 2 additional tests-smooth M antibody and AMA. Repeat liver function test weekly for 3 weeks. If levels keep rising we will get additional testing to include pro time and admit and MR CP and MRI. Will then share the results with the ladle repairman. Ask 1-How is he feeling today? 2- What does urine look like? 3-Ask him if any new medications taken including over the counter. Did report taking AREDs supplement per eye doctor recommendations. Anything else OTC? [facility] 08-18-2024 Telephone encounter Note Patient calling and is asking about CT results. Please review and advise, Kiersten Plasencia RN [facility] 08-16-2024 Radiology Diagnostic study note [facility] [address] [place] [address] Abdomen Limited MR#: [id number] Acct: [id number] Name: CHLOÉ GUTIERREZ Rep #: [id number] : 1955 M 69 From: Mercedes Mccollum MD PCP: SHANNAN Carter Status: REG ER Study:Abdomen Limited Date of Exam: 07/23 10/15 Exam# [id number] Ordering Dr: Alma Rosa Ovalle DO EXAM: US Abdomen Limited, Right Upper Quadrant CLINICAL INDICATION: TRANSAMINITIS, ELEVATED BILIRUBIN TECHNIQUE: Real-time ultrasound of the right upper quadrant with image documentation. COMPARISON: No relevant prior studies available. FINDINGS: LIVER: Liver measures up to 15.5 cm. No intrahepatic bile duct dilation. GALLBLADDER: Negative Reeder's sign was reported by the casting director. No gallstones. COMMON BILE DUCT: Unremarkable as visualized. No stones. No dilation. Commonbile duct measures 0.4 cm in diameter. PANCREAS: Pancreas not clearly visualized. RIGHT KIDNEY: Moderate right hydronephrosis. No stones. The right kidney measures 10.6 x 5.3 x 5.5 cm. US/Abdomen Limited IMPRESSION: Moderate right hydronephrosis. No evidence of acute cholecystitis. Reading Location: [facility] CC: [facility] Awilda Mattson; Dr. Jesus Ovalle, ~ Dog Barber: Signed [facility] 08-15-2024 Telephone encounter Note Patient calling asking if he has been taking a hot bath with jets daily at home in his bathtub, if that could pose a problem? He said he was talking to the GENERAL ADJUSTER about CT results shortly ago. Please advise [facility] 08-15-2024 Note HNO ID: [id number] Author: NABILA MUÑOZ RT(Lucia) Service: ? Author Type: Technologist Type: Progress Notes Filed: 08/15/2024 14:04 Note Text: Radiology Service Progress Note DATE OF SERVICE: August 15, 2024 TIME: 2:03 PM PATIENT IDENTITY VERIFICATION COMPLETED USING TWO (2) STANDARD IDENTIFIERS: Name and Date of confirmed by patient verbally. FALL SCREENING: Has the patient had 2 falls in the last year or 1 fall with injury or currently using an Ambulatory Assistive Device (Walker, Cane, Wheelchair, Crutches, etc.)? No PATIENT GENDER DATA: Assigned male at PATIENT RELEVANT IMPLANT DATA REVIEWED: Not Applicable PATIENT PRESENTS WITH AN IMPLANTABLE OR ATTACHED DEDICATED REGIONAL DRIVER: N/A ALLERGIES: Reviewed and unchanged CONTRAST ALLERGY: NO. EXAM: CT -CONTRAST INDUCED NEPHROPATHY RISK FACTORS: Patient age > 60 years CREATININE: Creatinine Date Value Ref Range Status 08/14/2024 1.08 0.73 - 1.22 mg/dL Final 01/10/2024 1.14 0.73 - 1.22 mg/dL Final 08/29/2022 1.13 0.73 - 1.22 mg/dL Final Estimated Glomerular Filtration Rate Date Value Ref Range Status 08/14/2024 74 >=60 mL/min/1.73m? Final Comment: Estimated Glomerular Filtration Rate (eGFR) is calculated using the 2020 CKD-EPI creatinine equation. This equation utilizes serum creatinine, sex, and age as parameters. The creatinine assay has traceable calibration to isotope dilution-mass spectrometry. Refer to KDIGO guidelines for clinical interpretation. In patients with unstable renal function, e.g. those with acute kidney injury, the eGFR may not accurately reflect actual GFR. eGFR- Date Value Ref Range Status 01/10/2016 >60 Final P.O.C.T. RESULTS: POC done: Yes, See Lab Tab August 15, 2024 TREATMENT: N/A PERIPHERAL IV DATA: Ambulatory: A peripheral IV was started in the Left antecubital site with a Angio cath: 22 gauge. RADIOLOGY DEPARTMENT: CT; Exam(s) Completed: Abdomen/Pelvis SIGNATURE: RT Matt(R) PATIENT NAME: Chloé Gutierrez DATE: August 15, 2024 TIME: 2:03 PM [facility] 08-14-2024 Note HNO ID: [id number] Author: AWILDA MATTSON APRN.TEAMSITE DEVELOPER Service: ? Author Type: Nurse Specialist Type: Progress Notes Filed: 08/15/2024 09:20 Note Text: Subjective Patient ID: Chloé is a 69 year old male who presents for Hematuria. HPI History of renal calculi with microscopic hematuria. History of lithotipsy 2013 Urologist: no current S/P left inguinal hernia repair July 16, [address] Navarro at [facility]. Presents today noting gross hematuria since Sunday. He was seen by express care while traveling and advised to just follow-up with primary care provider, no treatment. Today reports ongoing red blood in his urine. Negative for flank pain. Negative for decreased urine volume, difficulty urinating, dysuria,penile discharge, penile pain, penile swelling, scrotal swelling, testicular pain or urinary urgency. Afebrile. No abdomina or CVA discomfort. Hematuria: - Gross hematuria since Sunday, described as red dye in water. - No associated dysuria, urgency, or increased frequency. - Urine described as thicker than usual. - No back pain or abdominal pain; denies symptoms similar to previous nephrolithiasis episodes. - Recent visit to urgent care in [place] revealed trace of blood in urine. - Family history of kidney cancer in twin brother, who had a nephrectomy within the past year. Inguinal Hernia Repair: - Recent laparoscopic inguinal hernia repair with mesh placement in [place], [place]. - Postoperative numbness in the leg, described as a weird feeling, but no pain. ROS Gastrointestinal: (-) abdominal discomfort + addominal bloating Genitourinary: (+) hematuria, (-) dysuria, (-) urinary frequency, (-) urinary urgency, (-) flank pain Musculoskeletal: (-) back pain Neurological: (+) leg numbness Objective BP 131/90 Pulse 102 Resp 16 Wt 71 kg (156 lb 8.4 oz) BMI 27.73 kg/m? Physical Exam Vitals and nursing note reviewed. Constitutional: Appearance: Normal appearance. HENT: Head: Normocephalic and atraumatic. Eyes: Conjunctiva/sclera: Conjunctivae normal. Neck: Thyroid: No thyroid mass or thyromegaly. Cardiovascular: Rate and Rhythm: Normal rate. Pulmonary: Effort: Pulmonary effort is normal. Abdominal: General: There is no distension. Tenderness: There is no abdominal tenderness. There is no right CVA tenderness, left CVA tenderness or guarding. Skin: General: Skin is warm and dry. Comments: Tanned skin versus jaundice. Neurological: General: No focal deficit present. Mental Status: He is alert and oriented to person, place, and time. 1. Calculus of kidney (N20.0) 2. Gross hematuria (R31.0) - Concern for gross hematuria noted since Sunday, described as red urine with no associated pain, dysuria, or urinary frequency. - Differential diagnosis includes possible renal calculi, urinary tract infection, or renal injury. Increased bilirubin in urine at OSH, will check labs today including liver function tests - Ordered urinalysis to check for infection. - Ordered CBC to assess for anemia, infection and CMP to evaluate renal and liver function, glucose. - Referred to urology for further evaluation and management. - Advised patient to present to the emergency department if hematuria significantly increases. [id number] urinalysis at outside hospital showed large amount of bilirubin, presence of ketones and protein, trace of blood. Urine testing in the office today showed glucose bilirubin ketones protein and urobilinogen. Further lab testing shows significantly elevated liver enzymes and bilirubin, further workup needed for liver to include imaging and lab work. Imaging and labwork today if possible. ER for any severe or concerning symptoms. Discussed with PCP. 3. Family history of renal cancer (Z80.51) - Patient's twin brother had a nephrectomy within the past year due to renal cancer. - Discussed the potential need for further workup given family history. Awilda Mattson, LICHA.TEAMSITE DEVELOPER ADDENDUM August 15, 2024 Lab work indicates liver problem. Will workup hyperbilirubinemia with elevated liver enzymes. Latest Ref Rng 01/10/2024 08/14/2024 WBC 3.70 - 11.00 k/uL 5.79 7.30 RBC 4.20 - 6.00 m/uL 5.04 5.01 Hemoglobin 13.0 - 17.0 g/dL 16.3 16.2 Hematocrit 39.0 - 51.0 % 49.1 47.9 MCV 80.0 - 100.0 fL 97.4 95.6 MCH 26.0 - 34.0 pg 32.3 32.3 MCHC 30.5 - 36.0 g/dL 33.2 33.8 RDW-CV 11.5 - 15.0 % 12.7 13.2 Platelet Count 150 - 400 k/uL 137 (L) 184 MPV 9.0 - 12.7 fL 10.3 11.3 Neut% % 67.9 74.1 Abs Neut (ANC) 1.45 - 7.50 k/uL 3.93 5.40 Lymph% % 18.5 10.8 Abs Lymph 1.00 - 4.00 k/uL 1.07 0.79 (L) [place]% % 8.6 10.3 Abs [place] <0.87 k/uL 0.50 0.75 Eosin% % 3.8 4.2 Abs Eosin <0.46 k/uL 0.22 0.31 Baso% % 0.7 0.1 Abs Baso <0.11 k/uL 0.04 <0.03 Immature Gran % % 0.5 0.5 IMMATURE GRANS (ABS) <0.10 k/uL 0.03 0.04 NRBC /100 WBC 0.0 0.0 Absolute nRBC <0.01 k/uL <0.01 <0.01 DTYPE Auto Auto Prote (more content not included)... [facility] 07-28-2024 Note HNO ID: [id number] Author: ARLYN CRUZ MD Service: ? Author Type: Physician Type: Progress Notes Filed: 07/28/2024 08:15 Note Text: FOLLOW UP VISIT NAME: Chloé Torre [facility] NO.: [id number] DATE OF SERVICE: 07/28/2024 : 1955 REFERRING PHYSICIAN: Awilda Mattson APRN.TEAMSITE DEVELOPER Chloé is s/p laparoscopic bilateral inguinal hernia done by Dr. Navarro on 07/16/2024. He denies any problems, some discomfort in the area but improving over time. VITALS: Temperature 36.4 ?C (97.6 ?F), temperature source Temporal. On examination, abdomen is soft and benign Wounds healing well without evidence of infection No hernia recurrence noted. Testicles in normal anatomical position. Assessment IMPRESSION: s/p laparoscopic bilateral inguinal hernia repair PLAN: Wound care instructions given Patient is instructed to make an appointment to return to clinic if any worsening signs/symptoms. Patient will return to PCP for medical care. Patient acknowledges above. Diagnoses: (Z98.890, Z87.19) Status post laparoscopic hernia repair (primary encounter diagnosis) I have confirmed and edited as necessary, the PFSH and ROS obtained by others. Arlyn Cruz MD [facility] 07-28-2024 History of Present illness Narrative FOLLOW UP VISIT NAME: Chloé Torre [facility] NO.: [id number] DATE OF SERVICE: 07/28/2024 : 1955 REFERRING PHYSICIAN: Awilda Mattson APRN.FIDE Adkins is s/p laparoscopic bilateral inguinal hernia done by Dr. Navarro on 07/16/2024. He denies any problems, some discomfort in the area but improving over time. VITALS: Temperature 36.4 C (97.6 F), temperature source Temporal. On examination, abdomen is soft and benign Wounds healing well without evidence of infection No hernia recurrence noted. Testicles in normal anatomical position. Assessment IMPRESSION: s/p laparoscopic bilateral inguinal hernia repair PLAN: Wound care instructions given Patient is instructed to make an appointment to return to clinic if any worsening signs/symptoms. Patient will return to PCP for medical care. Patient acknowledges above. Diagnoses: (Z98.890, Z87.19) Status post laparoscopic hernia repair (primary encounter diagnosis) I have confirmed and edited as necessary, the PFSH and ROS obtained by others. Arlyn Cruz MD documented in this encounter [facility] 07-16-2024 Note HNO ID: [id number] Author: MELISSA DANIELSON RN Service: ? Author Type: Registered Nurse Type: Nursing Progress Note Filed: 07/16/2024 11:06 Note Text: Patient was able to urinate. Patient ambulates with strong steady gait. [facility] 07-16-2024 Note HNO ID: [id number] Author: MELISSA DANIELSON RN Service: ? Author Type: Registered Nurse Type: Nursing Progress Note Filed: 07/16/2024 11:04 Note Text: Patient ambulated to bathroom with strong steady gait. [facility] 07-16-2024 Note HNO ID: [id number] Author: LEVAR COHN APRN.CRNA Service: ? Author Type: Nurse Opal Polisher Type: Anesthesia Procedure Notes Filed: 07/16/2024 08:05 Note Text: ANESTHESIOLOGY PROCEDURE NOTE Airway General Information Procedure Start Time/Medication Administration: 07/16/2024 7:38 AM Procedure End Time: 07/16/2024 8:03 AM Patient location during procedure: OR Timeout Performed Pre-procedure: timeout performed Consent Obtained: Yes Patient identity confirmed: arm band Staffing WORKERS COMPENSATION SPECIALIST: Levar Cohn APRN.WORKERS COMPENSATION SPECIALIST Performed by: JENS Indications and Patient Condition Indications for airway management: anesthesia Preoxygenated: yes anesthesia circuit Patient position: sniffing Method: asleep Cricoid Pressure: No Manual In-Line Stabilization: No Difficult Mask: No Final Airway Details Final airway type: endotracheal airway Final Endotracheal Airway: ETT Cuffed: yes Successful intubation technique: direct laryngoscopy Endotracheal tube insertion site: oral Blade: Sadler Blade size: #2 ETT size (mm): 7.0 Measured from: lips Measurement (cm): 22.5 Placement verified by: chest auscultation Cormack-Lehane Classification: grade I - full view of glottis Number of attempts at approach: 1 Failed airway: no Unrecognized esophageal intubation: no Airway not difficult SIGNATURE: Levar Cohn APRN.WORKERS COMPENSATION SPECIALIST PATIENT NAME: Chloé Gutierrez DATE: July 16, 2024 TIME: 8:03 AM CSN: [id number] [facility] 06-27-2024 Telephone encounter Note 07-16-2024 KALEB campbelldarío Navarro per Dr Cruz [facility] 06-27-2024 Miscellaneous Notes 07-16-[address] Cruz documented in this encounter [facility] 06-23-2024 Note HNO ID: [id number] Author: ARLYN RCUZ MD Service: ? Author Type: Physician Type: Progress Notes Filed: 06/23/2024 12:45 Note Text: HISTORY AND PHYSICAL Chloé Gutierrez 1955 REFERRING PHYSICIAN: No ref. provider found CHIEF COMPLAINT: left inguinal hernia HPI: The patient is a 69 year old male presents with left inguinal hernia. He has noted this for about a few weeks. He notes a bulge in the area. He denies previous left inguinal hernia repair, he had previous right inguinal hernia repair. He does some heavy lifting occasionally. He denies obstructive gastrointestinal or urinary symptoms. He denies history of incarceration. PAST MEDICAL HISTORY Diagnosis Date Diverticulosis of colon (without mention of hemorrhage) H/O lithotripsy 01/07/2014 EXTRACORPOREAL SHOCKWAVE LITHOTRIPSY Hypertension, unspecified type Internal hemorrhoids without mention of complication Macular degeneration Wet in right eye, Dx in both for maculaar degeneration Other and unspecified hyperlipidemia 09/02/2007 LDL 160, HDL 58, TG 68 in 5-08: consider meds if not successful with wt loss at follow up PAST SURGICAL HISTORY Procedure Laterality Date COLONOSCOPY FLX DX W/COLLJ SPEC WHEN PFRMD 02/24/09 LITHOTRIPSY EXTRACORP SHOCK WAVE(ESWL) 01/07/14 RPR 1ST INGUN HRNA AGE 5 YRS/> REDUCIBLE as Hernia repair, inguinal RPR UMBILICAL HERNIA < 5 YRS REDUCIBLE as Hernia repair, umbilical <5yr Current Outpatient Medications Medication Sig amLODIPine (NORVASC) 2.5 mg tablet Take 1 tablet by mouth once daily. No current facility-administered medications for this visit. ALLERGIES: Patient has no known allergies. PERSONAL HISTORY: Social History Tobacco Use Smoking status: Never Smokeless tobacco: Former Types: Snuff Quit date: 04/23/2008 Vaping Use Vaping status: Never Used Substance Use Topics Alcohol use: Yes Alcohol/week: 14.0 standard drinks of alcohol Types: 14 Cans of beer per week Comment: 2 beers per day Drug use: Never FAMILY HISTORY Problem Relation Age of Onset Heart Mother irragular beat Hypertension Mother Kidney Cancer Mother Prostate Cancer Father 1998 other (Heat condition) Father No Known Problems Sister No Known Problems Sister Kidney Cancer Brother other (Kidney removed) Brother Psoriasis Brother No Known Problems Brother Psoriasis Brother other (Heart condition) Brother other (Valve replaced) Brother No Ocular Disease No Family History REVIEW OF SYSTEMS: General: The patient denies fatigue, denies weight loss, denies weight gain, denies feeling hot, and denies feelings of cold. Eyes: The patient denies glaucoma, denies eye injury/surgery, wears glasses or contacts. Ear/Nose/Throat: The patient denies allergies, denies hayfever, denies ear infections, and denies bloody noses. Cardiovascular: The patient denies chest pain, denies heart disease, notes high blood pressure,denies cardiac stent, denies prior heart attack, denies irregular heart beat, notes high cholesterol, denies poor circulation, denies heart failure, other cardiac issues, denies claudication, denies cold feet, denies peripheral arterial stent. Respiratory: The patient denies tuberculosis, denies pneumonia, notes frequent cough, denies pulmonary embolism, denies shortness of breath, and denies coughing up blood. Gastrointestinal: The patient denies difficulty swallowing, denies acid reflux, denies ulcers, denies vomiting, denies jaundice/hepatitis, denies gallbladder problems, denies black or tarry stools, denies hemorrhoids, denies bleeding from rectum, denies diverticulitis, denies constipation, denies diarrhea, denies loss of stool control, and notes hernias. Kidney/Bladder: The patient notes kidney stones, denies urine infections, and denies bloody urine. Skin: The patient denies a history of skin cancer, denies bleeding/changing moles, and denies a history of skin rash. Neurologic: The patient denies a history of epilepsy/convulsions, denies headaches, denies head/spinal injuries, and denies stroke/TIA. Psychiatric: The patient denies psychiatric medications, denies depression, and denies voices, denies substance abuse. Endocrine: The patient denies thyroid disorders, denies diabetes, and denies hormonal problems. Hematologic: The patient denies a history of bruising, denies bleeding, and denies anemia, denies blood clots. Infections: The patient notes a history of measles and mumps, denies rheumatic fever, and denies sexually transmitted diseases. Musculoskeletal: The patient denies back pain/injury, denies back problems, denies sciatica, denies knee/foot trouble, denies arthritis, or denies gout. PHYSICAL EXAMINATION: General: The patient is 69 year old male, well nourished, well hydrated in no acute distress. The patient is oriented to time, place, and person. VITALS: Blood pressure 152/98, pulse 74, temperat (more content not included)... [facility] 06-23-2024 History of Present illness Narrative HISTORY AND PHYSICAL Chloé Gutierrez 1955 REFERRING PHYSICIAN: No ref. provider found CHIEF COMPLAINT: left inguinal hernia HPI: The patient is a 69 year old male presents with left inguinal hernia. He has noted this for about a few weeks. He notes a bulge in the area. He denies previous left inguinal hernia repair, he had previous right inguinal hernia repair. He does some heavy lifting occasionally. He denies obstructive gastrointestinal or urinary symptoms. He denies history of incarceration. PAST MEDICAL HISTORY Diagnosis Date Diverticulosis of colon (without mention of hemorrhage) H/O lithotripsy 01/07/2014 EXTRACORPOREAL SHOCKWAVE LITHOTRIPSY Hypertension, unspecified type Internal hemorrhoids without mention of complication Macular degeneration Wet in right eye, Dx in both for maculaar degeneration Other and unspecified hyperlipidemia 09/02/2007 LDL 160, HDL 58, TG 68 in 5-08: consider meds if not successful with wt loss at follow up PAST SURGICAL HISTORY Procedure Laterality Date COLONOSCOPY FLX DX W/COLLJ SPEC WHEN PFRMD 02/24/09 LITHOTRIPSY EXTRACORP SHOCK WAVE(ESWL) 01/07/14 RPR 1ST INGUN HRNA AGE 5 YRS/> REDUCIBLE as Hernia repair, inguinal RPR UMBILICAL HERNIA < 5 YRS REDUCIBLE as Hernia repair, umbilical <5yr Current Outpatient Medications Medication Sig amLODIPine (NORVASC) 2.5 mg tablet Take 1 tablet by mouth once daily. No current facility-administered medications for this visit. ALLERGIES: Patient has no known allergies. PERSONAL HISTORY: Social History Tobacco Use Smoking status: Never Smokeless tobacco: Former Types: Snuff Quit date: 04/23/2008 Vaping Use Vaping status: Never Used Substance Use Topics Alcohol use: Yes Alcohol/week: 14.0 standard drinks of alcohol Types: 14 Cans of beer per week Comment: 2 beers per day Drug use: Never FAMILY HISTORY Problem Relation Age of Onset Heart Mother irragular beat Hypertension Mother Kidney Cancer Mother Prostate Cancer Father 1998 other (Heat condition) Father No Known Problems Sister No Known Problems Sister Kidney Cancer Brother other (Kidney removed) Brother Psoriasis Brother No Known Problems Brother Psoriasis Brother other (Heart condition) Brother other (Valve replaced) Brother No Ocular Disease No Family History REVIEW OF SYSTEMS: General: The patient denies fatigue, denies weight loss, denies weight gain, denies feeling hot, and denies feelings of cold. Eyes: The patient denies glaucoma, denies eye injury/surgery, wears glasses or contacts. Ear/Nose/Throat: The patient denies allergies, denies hayfever, denies ear infections, and denies bloody noses. Cardiovascular: The patient denies chest pain, denies heart disease, notes high blood pressure,denies cardiac stent, denies prior heart attack, denies irregular heart beat, notes high cholesterol, denies poor circulation, denies heart failure, other cardiac issues, denies claudication, denies cold feet, denies peripheral arterial stent. Respiratory: The patient denies tuberculosis, denies pneumonia, notes frequent cough, denies pulmonary embolism, denies shortness of breath, and denies coughing up blood. Gastrointestinal: The patient denies difficulty swallowing, denies acid reflux, denies ulcers, denies vomiting, denies jaundice/hepatitis, denies gallbladder problems, denies black or tarry stools, denies hemorrhoids, denies bleeding from rectum, denies diverticulitis, denies constipation, denies diarrhea, denies loss of stool control, and notes hernias. Kidney/Bladder: The patient notes kidney stones, denies urine infections, and denies bloody urine. Skin: The patient denies a history of skin cancer, denies bleeding/changing moles, and denies a history of skin rash. Neurologic: The patient denies a history of epilepsy/convulsions, denies headaches, denies head/spinal injuries, and denies stroke/TIA. Psychiatric: The patient denies psychiatric medications, denies depression, and denies voices, denies substance abuse. Endocrine: The patient denies thyroid disorders, denies diabetes, and denies hormonal problems. Hematologic: The patient denies a history of bruising, denies bleeding, and denies anemia, denies blood clots. Infections: The patient notes a history of measles and mumps, denies rheumatic fever, and denies sexually transmitted diseases. Musculoskeletal: The patient denies back pain/injury, denies back problems, denies sciatica, denies knee/foot trouble, denies arthritis, or denies gout. PHYSICAL EXAMINATION: General: The patient is 69 year old male, well nourished, well hydrated in no acute distress. The patient is oriented to time, place, and person. VITALS: Blood pressure 152/98, pulse 74, temperature 36.6 C (97.8 F), temperature source Temporal, resp. rate 14, height 161.4 cm (5' 3.54), weight 74.4 kg (164 lb), SpO2 100%. Body mass index is 28.56 kg/m . Head - Normocephalic. EOM intact with sclera clear and no icterus noted. Wearing glasses Neck - supple with no jugular venous distention noted. Trachea is midline. Lungs - clear to auscultation. Normal breath sounds. No rales/rhonchi/wheezing noted. No labored breathing noted, such as retractions. No cough heard. Heart - normal S1 and S2 auscultated. No rubs/clicks/murmurs noted. Regular rate. Abdomen - soft and benign. Slight rectus diastasis. Genitalia - normal male phallus, testes in normal anatomical position and no masses noted, no right inguinal hernia, reducible left inguina hernia Extremities - no calf tenderness noted. No pitting edema noted. Skin - normal skin integrity. Neurological - gait normal, no focal deficits noted. Psych - calm and appropriate Assessment IMPRESSION: left inguinal hernia PLAN: I have discussed the above with the patient. I have offered left inguinal hernia repair with mesh. I have explained the procedure to the patient. I have explained the risks/benefits of the procedure. I have discussed the risks with the patient, including but not limited to: infection, bleeding, injury to any blood vessels/nerves, injury to any bowel/bladder, injury to the spermatic cord, injury to the testicle, scar tissue, chronic groin pain, recurrence of hernia, seroma/swelling, wound infections, cosmetic deformity, etc. - the patient understands I have offered laparoscopic versus open repair, patient chooses former. He will be scheduled with surgery with Dr. Navarro at [facility] The patient wishes to proceed. I have answered all questions to the patient s satisfaction and the patient has no further questions. . I have confirmed and edited as necessary, the PFSH and ROS obtained by others. Diagnoses: (K40.90) Left inguinal hernia (primary encounter diagnosis) Medical Decision Making: Problems: Low: Stable chronic illness Risk: High: Decision on elective major surgery w/ risk factors Medical Decision Making Level: 3 - Low Arlyn Cruz MD REVIEW OF SYSTEMS: General: The patient denies fatigue, denies weight loss, denies weight gain, denies feeling hot, and denies feelings of cold. Eyes: The patient denies glaucoma, denies eye injury/surgery, wears glasses or contacts. Ear/Nose/Throat: The patient denies allergies, denies hayfever, denies ear infections, and denies bloody noses. Cardiovascular: The patient denies chest pain, denies heart disease, notes high blood pressure,denies cardiac stent, denies prior heart attack, denies irregular heart beat, notes high cholesterol, denies poor circulation, denies heart failure, other cardiac issues, denies claudication, denies cold feet, denies peripheral arterial stent. Respiratory: The patient denies tuberculosis, denies pneumonia, notes frequent cough, denies pulmonary embolism, denies shortness of breath, and denies coughing up blood. Gastrointestinal: The patient denies difficulty swallowing, denies acid reflux, denies ulcers, denies vomiting, denies jaundice/hepatitis, denies gallbladder problems, denies black or tarry stools, denies hemorrhoids, denies bleeding from rectum, denies diverticulitis, denies constipation, denies diarrhea, denies loss of stool control, and notes hernias. Kidney/Bladder: The patient notes kidney stones, denies urine infections, and denies bloody urine. Skin: The patient denies a history of skin cancer, denies bleeding/changing moles, and denies a history of skin rash. Neurologic: The patient denies a history of epilepsy/convulsions, denies headaches, denies head/spinal injuries, and denies stroke/TIA. Psychiatric: The patient denies psychiatric medications, denies depression, and denies voices, denies substance abuse. Endocrine: The patient denies thyroid disorders, denies diabetes, and denies hormonal problems. Hematologic: The patient denies a history of bruising, denies bleeding, and denies anemia, denies blood clots. Infections: The patient notes a history of measles and mumps, denies rheumatic fever, and denies sexually transmitted diseases. Musculoskeletal: The patient denies back pain/injury, denies back problems, denies sciatica, denies knee/foot trouble, denies arthritis, or denies gout. When was patient's last Mammogram screening? N/A Last Colonoscopy: 02/24/2009 Audrey Lancaster LPN documented in this encounter [facility] 06-23-2024 Note HNO ID: [id number] Author: AUDREY LANCASTER LPN Service: ? Author Type: LICENSED NURSE Type: Progress Notes Filed: 06/23/2024 12:45 Note Text: REVIEW OF SYSTEMS: General: The patient denies fatigue, denies weight loss, denies weight gain, denies feeling hot, and denies feelings of cold. Eyes: The patient denies glaucoma, denies eye injury/surgery, wears glasses or contacts. Ear/Nose/Throat: The patient denies allergies, denies hayfever, denies ear infections, and denies bloody noses. Cardiovascular: The patient denies chest pain, denies heart disease, notes high blood pressure,denies cardiac stent, denies prior heart attack, denies irregular heart beat, notes high cholesterol, denies poor circulation, denies heart failure, other cardiac issues, denies claudication, denies cold feet, denies peripheral arterial stent. Respiratory: The patient denies tuberculosis, denies pneumonia, notes frequent cough, denies pulmonary embolism, denies shortness of breath, and denies coughing up blood. Gastrointestinal: The patient denies difficulty swallowing, denies acid reflux, denies ulcers, denies vomiting, denies jaundice/hepatitis, denies gallbladder problems, denies black or tarry stools, denies hemorrhoids, denies bleeding from rectum, denies diverticulitis, denies constipation, denies diarrhea, denies loss of stool control, and notes hernias. Kidney/Bladder: The patient notes kidney stones, denies urine infections, and denies bloody urine. Skin: The patient denies a history of skin cancer, denies bleeding/changing moles, and denies a history of skin rash. Neurologic: The patient denies a history of epilepsy/convulsions, denies headaches, denies head/spinal injuries, and denies stroke/TIA. Psychiatric: The patient denies psychiatric medications, denies depression, and denies voices, denies substance abuse. Endocrine: The patient denies thyroid disorders, denies diabetes, and denies hormonal problems. Hematologic: The patient denies a history of bruising, denies bleeding, and denies anemia, denies blood clots. Infections: The patient notes a history of measles and mumps, denies rheumatic fever, and denies sexually transmitted diseases. Musculoskeletal: The patient denies back pain/injury, denies back problems, denies sciatica, denies knee/foot trouble, denies arthritis, or denies gout. When was patient's last Mammogram screening? N/A Last Colonoscopy: 02/24/2009 Audrey Lancaster LPN [facility] 01-10-2024 Instructions Awilda Mattson APRN.FIDE - 01/10/2024 8:30 AM EDT Consider colon cancer screening. Consider skin cancer screening. If abdominal hernia becomes bothersome / painful recommend seeing general surgeon for opinion. ER visit for any severe symptoms in this area. Resume amlodipine for blood pressure. documented in this encounter [facility] 01-10-2024 Note HNO ID: [id number] Author: AWILDA MATTSON APRN.CNS Service: ? Author Type: Nurse Specialist Type: Progress Notes Filed: 01/10/2024 08:49 Note Text: SUBJECTIVE: Depression Screening Never done Anxiety Screening Never done Shingrix Vaccine(1 of 2) Never done RSV Vaccine(1 - 1-dose 60+ series) Never done Pneumococcal Vaccine: 65+(1 of 1 - PCV) Never done Colorectal Cancer Screening due on 02/24/2019 Advance Directive Discussion due on 04/23/2023 Covid-19 Vaccine( season) Never done Influenza Vaccine(1) due on 12/23/2023 HPI Chloé Gutierrez is a 68 year old male.PMH significant for ACTIVE PROBLEM LIST Primary Hypertension Mixed Hyperlipidemia Calculus of Kidney Notes he is in his usual state of good health.Presents today for a routine visit. Last seen in office 08/2022. No recent fill of amlodipine noted in outside medication review. He notes he is in his usual state of good health. 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 Diet: Tries to eat healthy Exercise: active Weight: stable Notes chronic sinus congestion.. Notes two beers daily. Plans to decrease. Notes stuck on skin lesion left forearm. Notes small skin lesion above right eyebrow. Notes abdominal hernia unchanged, not incresed in size, not painful. History of childhood hernia surgery. Notes some decrease in vision right eye, has upcoming appointment with [facility] to check this. HTN: Notes occasionally feels odd, not quite off balance in the morning. Ran out of amlodipine, has not taken it for a while. Without report of headache, chest pain, palpitations, dyspnea, peripheral edema, orthopnea, fatigue and PND. Last 14 Encounter BP Readings: Date: BP: 01/10/2024 155/85 08/29/2022 142/90 08/08/2021 141/83[TruBP average[ 06/24/2021 152/92 03/15/2016 143/80 02/07/2016 130/84 01/05/2016 130/80 05/21/2015 136/88 07/21/2013 172/108 03/10/2013 122/84 01/15/2013 134/86 12/25/2012 132/94 12/22/2010 120/80 12/22/2008 140/76 Hyperlipidemia. His most recent lipid panels are: Cholesterol, Total (mg/dL) Date Value 03/13/2016 241 03/10/2013 214 Total Cholesterol, Nonfasting (mg/dL) Date Value 08/29/2022 233 HDL Cholesterol (mg/dL) Date Value 03/13/2016 69 03/10/2013 66 HDL Cholesterol, Nonfasting (mg/dL) Date Value 08/29/2022 69 LDL Cholesterol (mg/dL) Date Value 03/13/2016 152 03/10/2013 134 LDL Cholesterol, Nonfasting (mg/dL) Date Value 08/29/2022 138 Triglyceride (mg/dL) Date Value 03/13/2016 98 03/10/2013 68 Triglycerides, Nonfasting (mg/dL) Date Value 08/29/2022 129 Tobacco:former chewing. Quit ~10 years ago. Depression/ Anxiety: no current complaints No prostate complaints. Notes kidney stones a couple of times in the past, no current / recent. Daughter Kenzie William is healthcare POA [phone]. Review of Systems Constitutional: Negative. Respiratory: Negative. Cardiovascular: Negative. Endocrine: Negative. Objective BP 155/85 Pulse 71 Resp 16 Wt 73.5 kg (162 lb 0.6 oz) BMI 27.81 kg/m? Physical Exam Vitals and nursing note reviewed. Constitutional: Appearance: Normal appearance. HENT: Head: Normocephalic and atraumatic. Eyes: Conjunctiva/sclera: Conjunctivae normal. Comments: Right upper eyelid with extended lesion c/w skin tag vs xanthoma Neck: Thyroid: No thyroid mass or thyromegaly. Vascular: Normal carotid pulses. No JVD. Cardiovascular: Rate and Rhythm: Normal rate and regular rhythm. Pulses: Carotid pulses are 2+ on the right side and 2+ on the left side. Radial pulses are 2+ on the right side and 2+ on the left side. Heart sounds: Normal heart sounds. Pulmonary: Effort: Pulmonary effort is normal. Breath sounds: Normal breath sounds. Abdominal: General: Bowel sounds are normal. Palpations: Abdomen is soft. Hernia: A hernia (s/p periumbilical hernia repair, + hernia findings on exam, not painful) is present. Comments: exam c/w diastasis recti; not TTP Musculoskeletal: Right lower leg: No edema. Left lower leg: No edema. Skin: General: Skin is warm and dry. Comments: Stuck on appearance left forearm skin lesion flesh tone, tiny sebaceous cyst above right eyebrow. Neurological: General: No focal deficit present. Mental Status: He is alert and oriented to person, place, and time. ALLERGIES No Known Allergies MEDICATIONS amLODIPine (NORVASC) 2.5 mg tablet Take 1 tablet by mouth once daily. (Patient not taking: Reported on 01/10/2024) PAST MEDICAL HISTORY Diagnosis Date Diverticulosis of colon (without mention of hemorrhage) H/O lithotripsy 01/07/2014 EXTRACORPOREAL SHOCKWAVE LITHOTRIPSY Internal hemorrhoids without mention of complication Other and unspecified hyperlipidemia 09/02/2007 LDL 160, HDL 58, TG 68 in -: consider meds if not successful with wt loss at follo (more content not included)... [facility] 01-10-2024 History of Present illness Narrative SUBJECTIVE: Depression Screening Never done Anxiety Screening Never done Shingrix Vaccine(1 of 2) Never done RSV Vaccine(1 - 1-dose 60+ series) Never done Pneumococcal Vaccine: 65+(1 of 1 - PCV) Never done Colorectal Cancer Screening due on 02/24/2019 Advance Directive Discussion due on 04/23/2023 Covid-19 Vaccine( - season) Never done Influenza Vaccine(1) due on 12/23/2023 HPI Chloé Gutierrez is a 68 year old male.PMH significant for ACTIVE PROBLEM LIST Primary Hypertension Mixed Hyperlipidemia Calculus of Kidney Notes he is in his usual state of good health.Presents today for a routine visit. Last seen in office 08/2022. No recent fill of amlodipine noted in outside medication review. He notes he is in his usual state of good health. 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 Diet: Tries to eat healthy Exercise: active Weight: stable Notes chronic sinus congestion.. Notes two beers daily. Plans to decrease. Notes stuck on skin lesion left forearm. Notes small skin lesion above right eyebrow. Notes abdominal hernia unchanged, not incresed in size, not painful. History of childhood hernia surgery. Notes some decrease in vision right eye, has upcoming appointment with [facility] to check this. HTN: Notes occasionally feels odd, not quite off balance in the morning. Ran out of amlodipine, has not taken it for a while. Without report of headache, chest pain, palpitations, dyspnea, peripheral edema, orthopnea, fatigue and PND. Last 14 Encounter BP Readings: Date: BP: 01/10/2024 155/85 08/29/2022 142/90 08/08/2021 141/83[TruBP average[ 06/24/2021 152/92 03/15/2016 143/80 02/07/2016 130/84 01/05/2016 130/80 05/21/2015 136/88 07/21/2013 172/108 03/10/2013 122/84 01/15/2013 134/86 12/25/2012 132/94 12/22/2010 120/80 12/22/2008 140/76 Hyperlipidemia. His most recent lipid panels are: Cholesterol, Total (mg/dL) Date Value 03/13/2016 241 03/10/2013 214 Total Cholesterol, Nonfasting (mg/dL) Date Value 08/29/2022 233 HDL Cholesterol (mg/dL) Date Value 03/13/2016 69 03/10/2013 66 HDL Cholesterol, Nonfasting (mg/dL) Date Value 08/29/2022 69 LDL Cholesterol (mg/dL) Date Value 03/13/2016 152 03/10/2013 134 LDL Cholesterol, Nonfasting (mg/dL) Date Value 08/29/2022 138 Triglyceride (mg/dL) Date Value 03/13/2016 98 03/10/2013 68 Triglycerides, Nonfasting (mg/dL) Date Value 08/29/2022 129 Tobacco:former chewing. Quit ~10 years ago. Depression/ Anxiety: no current complaints No prostate complaints. Notes kidney stones a couple of times in the past, no current / recent. Daughter Kenzie William is [facility] [phone]. Review of Systems Constitutional: Negative. Respiratory: Negative. Cardiovascular: Negative. Endocrine: Negative. Objective BP 155/85 Pulse 71 Resp 16 Wt 73.5 kg (162 lb 0.6 oz) BMI 27.81 kg/m Physical Exam Vitals and nursing note reviewed. Constitutional: Appearance: Normal appearance. HENT: Head: Normocephalic and atraumatic. Eyes: Conjunctiva/sclera: Conjunctivae normal. Comments: Right upper eyelid with extended lesion c/w skin tag vs xanthoma Neck: Thyroid: No thyroid mass or thyromegaly. Vascular: Normal carotid pulses. No JVD. Cardiovascular: Rate and Rhythm: Normal rate and regular rhythm. Pulses: Carotid pulses are 2+ on the right side and 2+ on the left side. Radial pulses are 2+ on the right side and 2+ on the left side. Heart sounds: Normal heart sounds. Pulmonary: Effort: Pulmonary effort is normal. Breath sounds: Normal breath sounds. Abdominal: General: Bowel sounds are normal. Palpations: Abdomen is soft. Hernia: A hernia (s/p periumbilical hernia repair, + hernia findings on exam, not painful) is present. Comments: exam c/w diastasis recti; not TTP Musculoskeletal: Right lower leg: No edema. Left lower leg: No edema. Skin: General: Skin is warm and dry. Comments: Stuck on appearance left forearm skin lesion flesh tone, tiny sebaceous cyst above right eyebrow. Neurological: General: No focal deficit present. Mental Status: He is alert and oriented to person, place, and time. ALLERGIES No Known Allergies MEDICATIONS amLODIPine (NORVASC) 2.5 mg tablet Take 1 tablet by mouth once daily. (Patient not taking: Reported on 01/10/2024) PAST MEDICAL HISTORY Diagnosis Date Diverticulosis of colon (without mention of hemorrhage) H/O lithotripsy 01/07/2014 EXTRACORPOREAL SHOCKWAVE LITHOTRIPSY Internal hemorrhoids without mention of complication Other and unspecified hyperlipidemia 09/02/2007 LDL 160, HDL 58, TG 68 in 08-28: consider meds if not successful with wt loss at follow up Social History Tobacco Use Smoking status: Never Smokeless tobacco: Former Types: Snuff Quit date: 04/23/2008 Substance Use Topics Alcohol use: Yes Comment: 2 beers per day Component Latest Ref Rng & Units 01/10/2016 03/13/2016 06/24/2021 WBC 3.70 - 11.00 k/uL 12.76 (H) RBC 4.20 - 6.00 m/uL 4.83 Hemoglobin 13.0 - 17.0 g/dL 15.8 Hematocrit 39.0 - 51.0 % 46.9 MCV 80.0 - 100.0 fL 97.1 MCH 26.0 - 34.0 pg 32.7 MCHC 30.5 - 36.0 g/dL 33.7 RDW-CV 11.5 - 15.0 % 13.2 Platelet Count 150 - 400 k/uL 247 MPV 9.0 - 12.7 fL 10.0 Neut% % 88.8 Abs Neut (ANC) 1.45 - 7.50 k/uL 11.32 (H) Lymph% % 3.8 Abs Lymph 1.00 - 4.00 k/uL 0.49 (L) [place]% % 6.5 Abs [place] <0.87 k/uL 0.83 Eosin% % 0.2 Abs Eosin <0.46 k/uL <0.03 Baso% % 0.2 Abs Baso <0.11 k/uL 0.03 Immature Gran % % 0.5 IMMATURE GRANS (ABS) <0.10 k/uL 0.07 NRBC /100 WBC 0.0 Absolute nRBC <0.01 k/uL <0.01 DTYPE Auto Glucose 74 - 99 mg/dL 102 (H) 118 (H) BUN 9 - 24 mg/dL 16 21 Creatinine 0.73 - 1.22 mg/dL 1.09 1.24 (H) Sodium 136 - 144 mmol/L 140 141 Potassium 3.7 - 5.1 mmol/L 4.2 4.2 Chloride 97 - 105 mmol/L 103 105 CO2 22 - 30 mmol/L 24 25 Anion Gap 9 - 18 mmol/L 13 11 Calcium 8.5 - 10.2 mg/dL 9.4 9.1 eGFR- >60 eGFR-All Other Races . >60 eGFR >=60 mL/min/1.73m 64 Triglyceride 30 - 149 mg/dL 98 Cholesterol, Total 100 - 199 mg/dL 241 (H) HDL Cholesterol >45 mg/dL 69 VLDL Cholesterol 6 - 40 mg/dL 20 LDL Cholesterol 60 - 129 mg/dL 152 (H) Fasting Time hrs 14 TC:HDL Ratio 1.00 - 5.00 3.49 LDL:HDL Ratio 0.50 - 3.55 2.20 Non HDL Cholesterol 90 - 159 mg/dL 172 (H) Hep C Antibody IA Negative Negative ASSESSMENT/PLAN: 1. Primary hypertension - ICD9: 401.9, ICD10: I10 (primary diagnosis) suboptimal control, out of medication - Resume medication - Encourage dietary sodium restriction/DASH diet - Recommend regular aerobic exercise. Plans to decrease from 2 beers daily to one beer daily - COMPREHENSIVE METABOLIC PANEL - COMPLETE BLOOD COUNT AND DIFFERENTIAL - LIPID PANEL BASIC 2. Screening for colon cancer - ICD9: V76.51, ICD10: Z12.11 - COLONOSCOPY SCREENING - CONSULT TO GENERAL SURGERY 3. Encounter for immunization - ICD9: V03.89, ICD10: Z23 - declines at this time - INFLUENZA VACCINE, PRSV FREE, AGE 65+ YR, HIGH DOSE, TRIVALENT (FLUZONE HIGH-DOSE) - [employer] INSTRUCTIONS - RSV PRINTED PHARMACY INSTRUCTIONS - PNEUMOCOCCAL VACCINE, 20 VALENT (PREVNAR 20) - [employer] COVID-19 VACCINE AGE 12+ YR 4. Screening for depression - ICD9: V79.0, ICD10: Z13.31 - DEPRESSION SCREENING 5. Encounter for screening examination for other mental health and behavioral disorders - ICD9: V79.8, ICD10: Z13.39 - ANXIETY SCREENING 6. Mixed hyperlipidemia - ICD9: 272.2, ICD10: E78.2 Recommend a plant based diet such as Mediterranean diet with plenty of vegetables, fruits,whole grains, fish, chicken, turkey or plant proteins and routine exercise such as walking - COMPREHENSIVE METABOLIC PANEL - LIPID PANEL BASIC - LIPID PANEL, NONFASTING . Screening exam for skin cancer - ICD9: V76.43, ICD10: Z12.83 He has what looks like a tiny sebaceous cyst above the right eyebrow. Skin lesion consistent with AK left forearm. Recommend skin cancer screening sometime this year. - CONSULT TO DERMATOLOGY labs today 1 mo recheck BP 1 year physical Mateo Ayala MD Consider colon cancer screening. Consider skin cancer screening. If abdominal hernia becomes bothersome / painful recommend seeing general surgeon for opinion. ER visit for any severe symptoms in this area. Resume amlodipine for blood pressure. Awilda Mattson APRN.CNS Medical Decision Making: Problems: Low: Stable chronic illness Data: Unique test(s) ordered: 3+ Risk: Moderate: Drug management Medical Decision Making Level: 4 - Moderate documented in this encounter [facility] 08-29-2022 History of Present illness Narrative 1. Lesion of right eyelid Appears to be veruca (skin tag) Educated patient-will monitor Patient to let me know if it continue to grow or impede blinking or acuity 2. Nonexudative age-related macular degeneration, bilateral, early dry stage OD>OS Educated pt on condition Gave amsler grid with instructions and to check multiple times per week Educated pt to eat a balanced diet and to use UV eye protection outdoors 3. Hypermetropia, bilateral 4. Regular astigmatism of both eyes 5. Presbyopia Finalized spec rx Follow-up in 6 months for dilation and oct mac or sooner as needed Cynthia Oropeza, OD August 29, 2022 3:49 PM documented in this encounter [facility] 08-28-2022 Miscellaneous Notes See below, needs tetanus shot tomorrow if he did not get it when bitten. May also have open wounds. Patient notified. Noted has appointment tomorrow--can get tetanus shot tomorrow. 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 And dog snuck up behind him and bit him left 6 puncture narayan in his left leg above the ankle and a veternarian was on the scene and cleaned the wounds out with solution and iodine immediately so it is possible dog was fully vaccinated. Patient states he just came on home afterwards to [place] and has had no ill effects no fever or anything just that it has not fully healed yet. Please advise. He has not had a tetanus shot since 2010 Patient has been identified by name and birthdate. Duration of symptoms: 1 weeks Person calling: self Call patient at: at home [phone] (home) [phone] (cell) Was an appointment scheduled: Yes: Date/Time: 08/29/22 @8am with Awilda Mattson Closing statement: Symptom Call: Thank you for calling [facility], your call is very important. A nurse will call in approximately 2-4 hours during business hours. If this is an emergency, please contact 911. Barbara Mjeia Pss documented in this encounter [facility] 08-28-2022 Miscellaneous Notes ZACHARY 08/08/21 NOV 08/29/22 Patient has been identified by name and date of : Yes Requested Prescriptions Pending Prescriptions Disp Refills amLODIPine (NORVASC) 2.5 mg tablet 30 tablet 11 Sig: Take 1 tablet by mouth once daily. RX INSTRUCTIONS: Patient aware RX will be sent to pharmacy. No need to notify patient. Barbara Mejia Pss documented in this encounter [facility] 08-08-2021 Instructions Awilda Mattson APRN.TEAMSITE DEVELOPER - 08/08/2021 7:37 AM EDT Check to see if your insurance covers Tdap and shingles vaccine and what location to get the vaccine -usually best covered at your local pharmacy where you get prescriptions filled. documented in this encounter [facility] 08-08-2021 History of Present illness Narrative SUBJECTIVE: COLORECTAL CANCER SCREENING due on 02/24/2019 LIPID SCREEN due on 03/13/2021 ADVANCE DIRECTIVE DISCUSSION Never done HPI Chloé Gutierrez is a 66 year old male.PMH significant for ACTIVE PROBLEM LIST Elevated Blood Pressure Reading Without Diagnosis of Hypertension Other and Unspecified Hyperlipidemia Calculus of Kidney Colon cancer screen 2008 colonoscopy. Last seen in IM/Family Medicine 2015. Presents today to establish care with a PCP. Previous PCP: none seen since last here Labwork: 2015 and urgent care 06/2021 ER/Hospitalization: none reported Outside records: none Diet: Tries to eat healthy Exercise: active Weight: stable HTN: Without report of headache, chest pain, palpitations, dyspnea, peripheral edema, orthopnea, fatigue and PND. Last 14 Encounter BP Readings: Date: BP: 08/08/2021 142/82 06/24/2021 152/92 03/15/2016 143/80 02/07/2016 130/84 01/05/2016 130/80 05/21/2015 136/88 07/21/2013 172/108 03/10/2013 122/84 01/15/2013 134/86 12/25/2012 132/94 12/22/2010 120/80 12/22/2008 140/76 10/28/2008 106/80 10/05/2008 118/78 Hyperlipidemia. His most recent lipid panels are: Cholesterol, Total (mg/dL) Date Value 03/13/2016 241 03/10/2013 214 HDL Cholesterol (mg/dL) Date Value 03/13/2016 69 03/10/2013 66 LDL Cholesterol (mg/dL) Date Value 03/13/2016 152 03/10/2013 134 Triglyceride (mg/dL) Date Value 03/13/2016 98 03/10/2013 68 Tobacco:former chewing Depression: Depression Screening 01/05/2016 08/08/2021 PHQ-2 Score 0 0 Depression screening reviewed. Based on interview, patient is not at risk for depression. Screening tool discussed with patient, and I recommended no further intervention at this time. No prostate complaints. Notes kidney stones a couple of times in the past, no current / recent. Daughter Kenzie William is [facility] [phone]. Review of Systems Constitutional: Negative. Respiratory: Negative. Cardiovascular: Negative. Endocrine: Negative. Objective BP 141/83 Pulse 66 Ht 162.6 cm (5' 4) Wt 73.5 kg (162 lb) SpO2 97% BMI 27.81 kg/m Physical Exam Vitals and nursing note reviewed. Constitutional: Appearance: Normal appearance. HENT: Head: Normocephalic and atraumatic. Eyes: Conjunctiva/sclera: Conjunctivae normal. Neck: Thyroid: No thyroid mass or thyromegaly. Vascular: Normal carotid pulses. No JVD. Cardiovascular: Rate and Rhythm: Normal rate and regular rhythm. Pulses: Carotid pulses are 2+ on the right side and 2+ on the left side. Radial pulses are 2+ on the right side. Heart sounds: Normal heart sounds. Pulmonary: Effort: Pulmonary effort is normal. Breath sounds: Normal breath sounds. Abdominal: General: Bowel sounds are normal. Palpations: Abdomen is soft. Comments: exam c/w diastasis recti; not TTP Musculoskeletal: Right lower leg: No edema. Left lower leg: No edema. Skin: General: Skin is warm and dry. Neurological: General: No focal deficit present. Mental Status: He is alert and oriented to person, place, and time. ALLERGIES No Known Allergies MEDICATIONS amLODIPine (NORVASC) 2.5 mg tablet, Take 1 tablet by mouth once daily. PAST MEDICAL HISTORY Diagnosis Date Diverticulosis of colon (without mention of hemorrhage) H/O lithotripsy 01/07/2014 EXTRACORPOREAL SHOCKWAVE LITHOTRIPSY Internal hemorrhoids without mention of complication Other and unspecified hyperlipidemia 09/02/2007 LDL 160, HDL 58, TG 68 in 08-28: consider meds if not successful with wt loss at follow up Social History Tobacco Use Smoking status: Never Smoker Smokeless tobacco: Former User Types: Snuff Substance Use Topics Alcohol use: Yes Drug use: Not on file Component Latest Ref Rng & Units 06/24/2021 WBC 3.70 - 11.00 k/uL 12.76 (H) RBC 4.20 - 6.00 m/uL 4.83 Hemoglobin 13.0 - 17.0 g/dL 15.8 Hematocrit 39.0 - 51.0 % 46.9 MCV 80.0 - 100.0 fL 97.1 MCH 26.0 - 34.0 pg 32.7 MCHC 30.5 - 36.0 g/dL 33.7 RDW-CV 11.5 - 15.0 % 13.2 Platelet Count 150 - 400 k/uL 247 MPV 9.0 - 12.7 fL 10.0 Neut% % 88.8 Abs Neut (ANC) 1.45 - 7.50 k/uL 11.32 (H) Lymph% % 3.8 Abs Lymph 1.00 - 4.00 k/uL 0.49 (L) [place]% % 6.5 Abs [place] <0.87 k/uL 0.83 Eosin% % 0.2 Abs Eosin <0.46 k/uL <0.03 Baso% % 0.2 Abs Baso <0.11 k/uL 0.03 Immature Gran % % 0.5 IMMATURE GRANS (ABS) <0.10 k/uL 0.07 NRBC /100 WBC 0.0 Absolute nRBC <0.01 k/uL <0.01 DTYPE Auto Glucose 74 - 99 mg/dL 118 (H) BUN 9 - 24 mg/dL 21 Creatinine 0.73 - 1.22 mg/dL 1.24 (H) Sodium 136 - 144 mmol/L 141 Potassium 3.7 - 5.1 mmol/L 4.2 Chloride 97 - 105 mmol/L 105 CO2 22 - 30 mmol/L 25 Anion Gap 9 - 18 mmol/L 11 Calcium 8.5 - 10.2 mg/dL 9.1 eGFR >=60 mL/min/1.73m 64 Culture No growth (<1,000 CFU/ml) ASSESSMENT/PLAN: 1. Screening for lipid disorders - ICD9: V77.91, ICD10: Z13.220 (primary diagnosis) - LIPID PANEL BASIC 2. Encounter for screening for diabetes mellitus - ICD9: V77.1, ICD10: Z13.1 HgbA1c 3. Colon cancer screening - ICD9: V76.51, ICD10: Z12.11 due for colonoscopy - CONSULT TO GENERAL SURGERY - CONSULT TO GASTROENTEROLOGY 4. Hypertension, unspecified type - ICD9: 401.9, ICD10: I10 BP has been elevated at most recent visits, persisting Will start amlodipine 2.5 mg daily - Endorse dietary sodium restriction/DASH diet - Endorse regular aerobic exercise. .- Keep EtOH intake at two beverages or less to help keep BP in control - Goal of BP <130/80 - AMLODIPINE 2.5 MG TABLET 1 mo recheck BP 6 mo follow up establish with PCP, labs prior schedule for appt prior to colon cancer screening Will check coverage for Tdap and Shingrix. Considering pneumovax and Covid19 vaccines. Awilda Mattson APRN.CNS Medical Decision Making: Problems: Low: Stable chronic illness Data: Unique test(s) ordered: 3+ Risk: Moderate: Drug management Medical Decision Making Level: 4 - Moderate documented in this encounter [facility] 10-28-2008 History of Past i llness Narrative Problem Noted Date Resolved Date Tobacco use disorder 10/28/2008 12/25/2012 Overview: Quit chew in 2009 or 2010; no change since about age 24 documented as of this encounter (statuses as of 08/08/2021) [facility] History of Past illness Narrative* Problem Noted Date Resolved Date Tobacco use disorder 10/28/2008 12/25/2012 Overview: Quit chew in 2009 or 2010; no change since about age 24 documented as of this encounter (statuses as of 08/28/2022) [facility] History of Past illness Narrative* Problem Noted Date Resolved Date Tobacco use disorder 10/28/2008 12/25/2012 Overview: Quit chew in 2009 or 2010; no change since about age 24 documented as of this encounter (statuses as of 08/29/2022) [facility] History of Past illness Narrative* Problem Noted Date Resolved Date Tobacco use disorder 10/28/2008 12/25/2012 Overview: Quit chew in 2009 or 2010; no change since about age 24 documented as of this encounter (statuses as of 08/30/2022) [facility] note* Diagnosis Screening for lipid disorders- Primary Encounter for screening for diabetes mellitus Screening for diabetes mellitus Colon cancer screening Special screening for malignant neoplasms, colon Hypertension, unspecified type documented in this encounter [facility] noteNo assessment information availableWGerman Hospital Work Phone: Evaluation note* Diagnosis Hypertension, unspecified type documented in this encounter [facility] note* Diagnosis Lesion of right eyelid- Primary Nonexudative age-related macular degeneration, bilateral, early dry stage Hypermetropia, bilateral Regular astigmatism of both eyes Regular astigmatism Presbyopia documented in this encounter [facility] note* Diagnosis Irritable behavior- Primary Irritability HYPERLIPIDEMIA NEC/NOS Other and unspecified hyperlipidemia Tobacco use disorder Screening Screening for unspecified condition Primary hypertension- Primary Unspecified essential hypertension Screening for colon cancer Special screening for malignant neoplasms, colon Encounter for immunization Need for other specified prophylactic vaccination against single bacterial disease Screening for depression Encounter for screening examination for other mental health and behavioral disorders Mixed hyperlipidemia Hypertension, unspecified type Screening exam for skin cancer Screening for malignant neoplasm of the skin documented in this encounter [facility] note* Diagnosis Irritable behavior- Primary Irritability HYPERLIPIDEMIA NEC/NOS Other and unspecified hyperlipidemia Tobacco use disorder Screening Screening for unspecified condition Left inguinal hernia- Primary Inguinal hernia without mention of obstruction or gangrene, unilateral or unspecified, (not specified as recurrent) [facility]* Diagnosis Irritable behavior- Primary Irritability HYPERLIPIDEMIA NEC/NOS Other and unspecified hyperlipidemia Tobacco use disorder Screening Screening for unspecified condition Status post laparoscopic hernia repair- Primary Other postprocedural status [facility]* Diagnosis Irritable behavior- Primary Irritability HYPERLIPIDEMIA NEC/NOS Other and unspecified hyperlipidemia Tobacco use disorder Screening Screening for unspecified condition Hyperbilirubinemia- Primary Jaundice, unspecified, not of Elevated liver enzymes Other nonspecific abnormal serum enzyme levels Gross hematuria- Primary Bladder wall thickening Other specified disorders of bladder Benign prostatic hyperplasia with nocturia Renal cysts, acquired, bilateral Acquired cyst of kidney History of kidney stones Personal history of urinary calculi [facility]* Diagnosis Irritable behavior- Primary Irritability HYPERLIPIDEMIA NEC/NOS Other and unspecified hyperlipidemia Tobacco use disorder Screening Screening for unspecified condition Gross hematuria- Primary Bladder wall thickening Other specified disorders of bladder Benign prostatic hyperplasia with nocturia Renal cysts, acquired, bilateral Acquired cyst of kidney History of kidney stones Personal history of urinary calculi Family history of prostate cancer in father Calculus of kidney Family history of renal cancer Family history of malignant neoplasm of kidney * Assessment & Plan Note - Holly Jorge MD - 08/19/2024 9:26 AM EDT Associated Problem(s): Gross hematuria Prior painless gross hematuria UA today negative CT reviewed Obtain culture, cytology, PSA, cystoscopy Orders: CONSULT TO UROLOGY UA DIP, URINE (POC) BLADDER SCAN PROSTATE-SPECIFIC ANTIGEN DIAGNOSTIC; Future BACTERIAL CULTURE, URINE CYTOLOGY NON-GEL COATER * Assessment & Plan Note - Holly Jorge MD - 08/19/2024 9:26 AM EDT Associated Problem(s): Bladder wall thickening Seen by Ct Plan cystoscopy * Assessment & Plan Note - Holly Jorge MD - 08/19/2024 9:26 AM EDT Associated Problem(s): Benign prostatic hyperplasia with nocturia Mild nocturia Prostate enlargement seen by CT Family history prostate cancer Obtain PSA Orders: PROSTATE-SPECIFIC ANTIGEN DIAGNOSTIC; Future * Assessment & Plan Note - Holly Jorge MD - 08/19/2024 9:26 AM EDT Associated Problem(s): Renal cysts, acquired, bilateral Benign appearing * Assessment & Plan Note - Holly Jorge MD - 08/19/2024 9:26 AM EDT Associated Problem(s): History of kidney stones Prior lithotripsy No stones seen on current CT * Assessment & Plan Note - Holly Jorge MD - 08/19/2024 9:26 AM EDT Associated Problem(s): Family history of prostate cancer in father * Assessment & Plan Note - Holly Jorge MD - 08/19/2024 9:26 AM EDT Associated Problem(s): Calculus of kidney [facility]* Diagnosis Irritable behavior- Primary Irritability HYPERLIPIDEMIA NEC/NOS Other and unspecified hyperlipidemia Tobacco use disorder Screening Screening for unspecified condition Gross hematuria- Primary Bladder wall thickening Other specified disorders of bladder Benign prostatic hyperplasia with nocturia Renal cysts, acquired, bilateral Acquired cyst of kidney History of kidney stones Personal history of urinary calculi Family history of prostate cancer in father Calculus of kidney Family history of renal cancer Family history of malignant neoplasm of kidney Abnormal results of liver function studies- Primary Nonspecific abnormal results of liver function study documented in this encounter [facility] note* Diagnosis Irritable behavior- Primary Irritability HYPERLIPIDEMIA NEC/NOS Other and unspecified hyperlipidemia Tobacco use disorder Screening Screening for unspecified condition Gross hematuria- Primary Bladder wall thickening Other specified disorders of bladder Benign prostatic hyperplasia with nocturia Renal cysts, acquired, bilateral Acquired cyst of kidney History of kidney stones Personal history of urinary calculi Family history of prostate cancer in father Calculus of kidney Family history of renal cancer Family history of malignant neoplasm of kidney Abnormal results of liver function studies Nonspecific abnormal results of liver function study documented in this encounter [facility] for referral (narrative)No reason for referral information availableWGerman Hospital Work Phone: [facility] N[facility]ative* MRI/CT (Routine) - Closed Specialty Diagnoses / Procedures Referred By Anne gonzales Referred To Contact MR IMAGING Diagnoses Abnormal results of liver function studies Procedures MRI PANC/ALBERT WO/W IVCON MRI ABDOMEN W/O & W/CONTRAST MATERIAL Awilda Mattson APRN.TEAMSITE DEVELOPER [address] [place] [address] Phone: tel: fax: [place] [id number] Referral ID Status Reason Start Date Expiration Date V isits Requested Visits Authorized [id number] Closed Auto-Generate d Referral 08/25/2024 09/24/2025 1 1 [facility] Reason for Referral Specialty Diagnoses / Procedures Referred By Contac t Referred To Contact Gastroenterology Diagnoses Colon cancer screening Procedures CONSULT TO GASTROENTEROLOGY OFFICE/OUTPATIENT [facility] 60-74 MINUTES Awilda Mattson, RADIATOR FITTER.TEAMSITE DEVELOPER [address] [place] [address] Referral ID Status Reason Start Date Expiration Date Visits Requested Visits Authorized [id number] Authorized PCP Requested Referral 08/08/2021 08/08/2022 1 1 Specialty Diagnoses / Procedures Referred By Contac t Referred To Contact General Surgery Diagnoses Colon cancer screening Procedures CONSULT TO GENERAL SURGERY OFFICE/OUTPATIENT [facility] 60-74 MINUTES Awilda Mattson, RADIATOR FITTER.TEAMSITE DEVELOPER [address] [place] [address] Referral ID Status Reason Start Date Expiration Date Visits Requested Visits Authorized [id number] Authorized PCP Requested Referral 08/08/2021 08/08/2022 1 1 Specialty Diagnoses / Procedures Referred By Contac t Referred To Contact Dermatology Diagnoses Screening exam for skin cancer Procedures CONSULT TO DERMATOLOGY Awilda Mattson, RADIATOR FITTER.TEAMSITE DEVELOPER [address] [place] [address] Referral ID Status Reason Start Date Expiration Date Visits Requested Visits Authorized [id number] Ref Not Required PCP Requested Referral 01/10/2024 01/09/2025 1 1 Specialty Diagnoses / Procedures Referred By Contac t Referred To Contact General Surgery Diagnoses Screening for colon cancer Procedures CONSULT TO GENERAL SURGERY OFFICE/OUTPATIENT [facility] 60 MINUTES Awilda Mattson, RADIATOR FITTER.TEAMSITE DEVELOPER [address] [place] [address] Referral ID Status Reason Start Date Expiration Date Visits Requested Visits Authorized [id number] Authorized PCP Requested Referral 01/10/2024 01/09/2025 1 1 Chief Complaint and Reason for Visit Chief Complaint EYE Chief Complaint Admit Date concerned for liver issues August 16, 2 025 10:23am Advance Directives No Advanced Directives Records Found Advance Directive Response Recorded Date/ Time Advance Directives No December 11:13am Living Will No December 29 022 12:03am Power of Court Bailiff No December 29, 2021 12:03am Advance Directive Response Recorded Date/ Time Do you have a Healthcare Pow er of Court Bailiff? Yes August 16, 2024 10:46am Name of Medical Power of Court Bailiff daughter - URBAN GUTIERREZ August 16, 2024 10:46am Advance Directives No December 11:13am Medications Administered Section Inactive Administered Medications - up to 3 most recent administrations Medication Order MAR Action Action Date Dose Rate Site PHENYLephrine 2.5 % 1 Drop (AK-DILATE, JOSEFA-SYNEPHRINE) 1 Drop, BOTH EYES, DIRECTED, Starting on Sun08/29/22 at 1430, Until Sun08/30/22 at 0229, Administer for dilation PROTECT FROM LIGHT Given 08/29/2022 2:05 PM EDT 1 Drop proparacaine 0.5 % 1 Drop (ALCAINE) 1 Drop, BOTH EYES, DIRECTED, Starting on Sun08/29/22 at 1430, Until Sun08/30/22 at 0229, Administer for pneumo tonometry, tonopen tonometry, or pachymetry. In the event of a proparacaine shortage, administer tetracaine 0.5% ophthalmic drops 1 drop in the left eye as directed for pneumo tonometry, tonopen tonometry, or pachymetry Given 08/29/2022 2:05 PM EDT 1 Drop tropicamide 1 % 1 Drop (MYDRIACYL) 1 Drop, BOTH EYES, DIRECTED, Starting on Sun08/29/22 at 1430, Until Sun08/30/22 at 0229, Administer for dilation Given 08/29/2022 2:05 PM EDT 1 Drop Summary Purpose Family History No Family History Records FoundNo Family History Records FoundNo Family History Records FoundNo Family History Records Found Additional Source Comments Source Comments (unrecognize d section and content) In the event this informatio n is protected by the Federal Confidentiality of Alcohol and Drug Abuse Patient Records regulations: The Federal rules restrict any use of the information to criminally investigate or prosecute any alcohol or drug abuse patient.[facility] the event this information is protected by the Federal Confidentiality of Alcohol and Drug Abuse Patient Records regulations: The Federal rules restrict any use of the information to criminally investigate or prosecute any alcohol or drug abuse patient.[facility] the event this information is protected by the Federal Confidentiality of Alcohol and Drug Abuse Patient Records regulations: The Federal rules restrict any use of the information to criminally investigate or prosecute any alcohol or drug abuse patient.[facility] the event this information is protected by the Federal Confidentiality of Alcohol and Drug Abuse Patient Records regulations: The Federal rules restrict any use of the information to criminally investigate or prosecute any alcohol or drug abuse patient.[facility] the event this information is protected by the Federal Confidentiality of Alcohol and Drug Abuse Patient Records regulations: The Federal rules restrict any use of the information to criminally investigate or prosecute any alcohol or drug abuse patient.[facility] HospitalIn the event this information is protected by the Federal Confidentiality of Alcohol and Drug Abuse Patient Records regulations: The Federal rules restrict any use of the information to criminally investigate or prosecute any alcohol or drug abuse patient.[facility] HospitalIn the event this information is protected by the Federal Confidentiality of Alcohol and Drug Abuse Patient Records regulations: The Federal rules restrict any use of the information to criminally investigate or prosecute any alcohol or drug abuse patient.[facility] HospitalIn the event this information is protected by the Federal Confidentiality of Alcohol and Drug Abuse Patient Records regulations: The Federal rules restrict any use of the information to criminally investigate or prosecute any alcohol or drug abuse patient.[facility] HospitalIn the event this information is protected by the Federal Confidentiality of Alcohol and Drug Abuse Patient Records regulations: The Federal rules restrict any use of the information to criminally investigate or prosecute any alcohol or drug abuse patient.[facility] HospitalIn the event this information is protected by the Federal Confidentiality of Alcohol and Drug Abuse Patient Records regulations: The Federal rules restrict any use of the information to criminally investigate or prosecute any alcohol or drug abuse patient.[facility] HospitalIn the event this information is protected by the Federal Confidentiality of Alcohol and Drug Abuse Patient Records regulations: The Federal rules restrict any use of the information to criminally investigate or prosecute any alcohol or drug abuse patient.[facility] HospitalIn the event this information is protected by the Federal Confidentiality of Alcohol and Drug Abuse Patient Records regulations: The Federal rules restrict any use of the information to criminally investigate or prosecute any alcohol or drug abuse patient.[facility] HospitalIn the event this information is protected by the Federal Confidentiality of Alcohol and Drug Abuse Patient Records regulations: The Federal rules restrict any use of the information to criminally investigate or prosecute any alcohol or drug abuse patient.[facility] HospitalIn the event this information is protected by the Federal Confidentiality of Alcohol and Drug Abuse Patient Records regulations: The Federal rules restrict any use of the information to criminally investigate or prosecute any alcohol or drug abuse patient.[facility] HospitalIn the event this information is protected by the Federal Confidentiality of Alcohol and Drug Abuse Patient Records regulations: The Federal rules restrict any use of the information to criminally investigate or prosecute any alcohol or drug abuse patient.[facility] Reason for Visit (unrecogniz ed section and content) Reason Comments Medicare Wellness Exam Reason Onset Date Comments Dog Bite 08/28/2022 Patient was bit by a dog and is asking if he should get a tetanus shot booster or not Reason Onset Date Comments Refill Request 08/28/2022 Reason Comments Eyelid Cyst Evaluation Specialty Diagnoses / Procedures Referred By Anne gonzales Referred To Contact Ophthalmology Diagnoses Lesion of right eyelid Procedures CONSULT TO OPHTHALMOLOGY OFFICE/OUTPATIENT [facility] 60-74 MINUTES Awilda Mattson, RADIATOR FITTER.TEAMSITE DEVELOPER [address] [place] [address] Referral ID Status Reason Start Date Expiration Date V isits Requested Visits Authorized [id number] Closed PCP Requested Referral 08/29/2022 08/29/2023 1 1 Reason Comments Physical Reason Comments Consult Reason Comments Pre-op instructions Pre-Operative instru ctions for surgery at [facility] on 07/16/2024 Reason Comments Follow Up Reason Comments Patient Question Results Reason Comments Consult Consult 08/16/24. Johann ss Hematuria. Patient has seen blood in his urine. Specialty Diagnoses / Procedures Referred By Anne t Referred To Contact Urology Diagnoses Calculus of kidney Gross hematuria Family history of renal cancer Procedures CONSULT TO UROLOGY OFFICE/OUTPATIENT [facility] 60 MINUTES Awilda Mattson, RADIATOR FITTER.TEAMSITE DEVELOPER [address] [place] [address] Phone: tel: fax: Referral ID Status Reason Start Date Expiration Date V isits Requested Visits Authorized [id number] Closed PCP Requested Referral 08/14/2024 08/14/2025 1 1 Reason Comments Erroneous encounter-disregard Reason Comments Results labs Care Teams (unrecognized sec tion and content) Field Cane Scaler Helper Relationship Specialty Start Date End Date Mateo Ayala MD [address] [place] [address] PCP - General Internal Medicine 08/08/21 Field Cane Scaler Helper Relationship Specialty Start Date End Date Mateo Ayala MD [address] [place] [address] PCP - General Internal Medicine 08/08/21 Field Cane Scaler Helper Relationship Specialty Start Date End Date Mateo Ayala MD [facility] [place] [address] PCP - General Internal Medicine 08/08/21 Field Cane Scaler Helper Relationship Specialty Start Date End Date Mateo Ayala MD [address] [place] [address] PCP - General Internal Medicine 08/08/21 Field Cane Scaler Helper Relationship Specialty Start Date End Date Mateo Ayala MD [address] [place] [address] PCP - General Internal Medicine 08/08/21 Field Cane Scaler Helper Relationship Specialty Start Date End Date Mateo Ayala MD [address] [place] [address] PCP - General Internal Medicine 08/08/21 Awilda Mattson, RADIATOR FITTER.TEAMSITE DEVELOPER [address] [place] [address] Seismograph Chief Internal Medicine 03/31/24 Casandra Ibarra RADIATOR FITTER.HYDROGEN PLANT OPERATOR [address] [place] [address] Seismograph Chief Internal Medicine 03/31/24 Field Cane Scaler Helper Relationship Specialty Start Date End Date Mateo Ayala MD [address] [place] [address] PCP - General Internal Medicine 08/08/21 Awilda Mattson, RADIATOR FITTER.TEAMSITE DEVELOPER [address] [place] [address] Seismograph Chief Internal Medicine 03/31/24 Casandra Ibarra RADIATOR FITTER.HYDROGEN PLANT OPERATOR [address] [place] [address] Seismograph Chief Internal Medicine 03/31/24 Field Cane Scaler Helper Relationship Specialty Start Date End Date Mateo Ayala MD [address] [place] [address] PCP - General Internal Medicine 08/08/21 07/01/24 Awilda Mattson, RADIATOR FITTER.TEAMSITE DEVELOPER [address] [place] [address] PCP - General Internal Medicine 07/02/24 Awilda Mattson, RADIATOR FITTER.TEAMSITE DEVELOPER [address] [place] [address] [facility] Internal Medicine 03/31/24 Casandra Ibarra, RADIATOR FITTER.HYDROGEN PLANT OPERATOR [address] [place], [place] [address] [facility] Internal Medicine 03/31/24 Field Cane Scaler Helper Relationship Specialty Start Date End Date Awilda Mattson, RADIATOR FITTER.TEAMSITE DEVELOPER [address] [place] [address] PCP - General Internal Medicine 07/02/24 Awilda Mattson, RADIATOR FITTER.TEAMSITE DEVELOPER [address] [place] [address] [facility] Internal Medicine 03/31/24 Casandra Ibarra, RADIATOR FITTER.HYDROGEN PLANT OPERATOR [address] [place] [address] [facility] Internal Medicine 03/31/24 Team Status: Active Member Role Status Dates Awilda Mattson GENERAL ADJUSTER, GENERAL ADJUSTER-C Primary Care Provider Active Team Status: Inactive Member Role Status Dates Awilda Mattson GENERAL ADJUSTER, GENERAL ADJUSTER-C Primary Care Provider Active Start: August 16, 2024 End: August 16, 2024 Dr. Jesus Ovalle , DO Emergency Provider Active Start: August 16, 2024 End: August 16, 2024 Field Cane Scaler Helper Relationship Specialty Start Date End Date Mateo Ayala MD [address] [place] [address] PCP - General Internal Medicine 08/15/24 Field Cane Scaler Helper Relationship Specialty Start Date End Date Mateo Ayala MD [address] [place] [address] PCP - General Internal Medicine 08/15/24 Holly Jorge MD [facility] [employer] [place], [place] [id number] Urology 08/19/24 Field Cane Scaler Helper Relationship Specialty Start Date End Date Mateo Ayala MD [address] [place], [place] [id number] PCP - General Internal Medicine 08/15/24 Holly Jorge MD [facility] [place] [address] Urology 08/19/24 Field Cane Scaler Helper Relationship Specialty Start Date End Date Mateo Ayala MD [address] [place], [place] [address] PCP - General Internal Medicine 08/15/24 Holly Jorge MD [address] [place], [place] [email or web address] [place], [place] [id number] Urology 08/19/24 Field Cane Scaler Helper Relationship Specialty Start Date End Date Mateo Ayala MD [address] [place], [place] [address] PCP - General Internal Medicine 08/15/24 Holly Jorge MD [facility] [employer] [place], [place] [id number] Urology 08/19/24 Goals (unrecognized section and content) Goals may be documented in a n alternate sectionGoals may be documented in an alternate section (unrecognized sect ion and content) No Status Records FoundNo Status Records FoundNo Status Records FoundNo Status Records Found INFORMATION SOURCE (unrecogn ized section and content) DATE CREATED AUTHOR 07/17/2024 [facility] DATE CREATED AUTHOR AUTHOR'S ORGANIZ ATION 08/25/2024 [facility] DATE CREATED AUTHOR AUTHOR'S ORGANIZ ATION 09/22/2024 [facility] DATE CREATED AUTHOR AUTHOR'S ORGANIZ ATION 09/22/2024 [facility] FOR RECORDS PERTAINING TO PATIENTS WHO ARE OR HAVE BEEN ENROLLED IN A CHEMICAL DEPENDENCY/SUBSTANCEABUSE PROGRAM, SOME INFORMATION MAY BE OMITTED. This clinical summary was aggregated from multiple sources. Caution should be exercised in using it in the provision of clinical care. This summary normalizes information from multiple sources, and as a consequence, information in this document may materially change the coding, format and clinical context of patient data. In addition, data may be omitted in some cases. CLINICAL DECISIONS SHOULD BE BASED ON THE PRIMARY CLINICAL RECORDS. [facility] [employer] [facility]. provides no warranty or guarantee of the accuracy or completeness of information in this document.
[2024-09-23] MEDS: 0.9% Normal Saline (250mL Bag) 250 ML 15 ML IV (09:48)
[2024-09-23] MEDS: Midazolam 2 MG/2 ML Syringe IV ×2 (09:50→10:00)
[2024-09-23] MEDS: fentaNYL 100 MCG/2 ML Ampul IV (09:53)
[2024-09-23] MEDS: Lidocaine 2% (20 ml mdv) 20 ML Vial INFILT (10:07)
[2024-09-23 10:43] LABS: Pathology Sent to OSU SEE PATHOLOGY REPORT
== END | disposition home or self-care (01) ==
LOC: CT 08:50
PROVIDERS: Radiology Diagnostic Radiology; PCP Clinical Nurse Specialist; Referring Provider Internal Medicine Gastroenterology; Visit Provider Internal Medicine Gastroenterology
DX: Z01.818 Encounter for other preprocedural examination (principal); E80.6 Other disorders of bilirubin metabolism; R74.01 Elevation of levels of liver transaminase levels
CPT/HCPCS: 47000; 36415; 77012; 85025; 85610; 85730; 99156; A4216